=== PATIENT | female | born 1950 | race Caucasian/White ===

== ENCOUNTER 2020-08-18 09:48 | Outpatient (REF) | payer MEDICARE, BC, SELFPAY ==
--- NOTE | 2020-08-18 | MM_ITS ---
EXAMINATION: MM SCREENING DIGITAL BREAST TOMOSYNTHESIS, BILATERAL CLINICAL INFORMATION: Screening. Asymptomatic. The lifetime risk of breast cancer based on the Tyrer-Cuzick Model is 3%. COMPARISON: Mammography: 08/13/2019, 08/10/2018, 05/17/2015 TECHNIQUE: Digital breast tomosynthesis is performed in both the craniocaudal and mediolateral oblique views along with computer-aided detection (CAD). Synthesized 2D images are generated from the tomosynthesis. Additional exaggerated right CC view is provided. FINDINGS: There are scattered areas of fibroglandular density (ACR BI-RADS breast composition Category b). There are no significant masses, abnormal calcifications, or other abnormalities. There are some vascular calcifications in the outer right breast best appreciated on MLO view. The axilla and skin contours are unremarkable. IMPRESSION: No significant changes from prior exams. ASSESSMENT: BI-RADS 2: Benign RECOMMENDATION: Routine annual mammography screening. This patient's information was entered into a reminder system with a target due date for their next mammogram.
== END 2020-08-18 09:49 | disposition home or self-care (01) ==
LOC: HO.MAMMO 09:48
PROVIDERS: PCP Internal Medicine; Visit Provider Internal Medicine
DX: Z12.31 Encounter for screening mammogram for malignant neoplasm of breast (principal)
CPT/HCPCS: 77063; 77067; 78014

== ENCOUNTER 2021-05-28 10:27 | Outpatient (REF) | payer MEDICARE, BC, SELFPAY ==
[2021-05-28 12:18] LABS: Alanine Aminotransferase 9 U/L (0-31); Albumin Level 4.2 g/dL (3.5-5.0); Alkaline Phosphatase 32 U/L (39-117); Anion Gap 13 (12-20); Aspartate Amino Transferase 15 U/L (5-31); Blood Urea Nitrogen 15 mg/dL (9-16); Calcium 9.4 mg/dL (8.4-10.2); Carbon Dioxide 27 mmol/L (22-29); Chloride 105 mmol/L (96-108); Estimated Glomerular Filt Rate > 60; Glucose Random 65 mg/dL (60-115); Potassium 4.2 mmol/L (3.3-5.1); Sodium 141 mmol/L (135-145)
[2021-06-03 09:06] LABS: Vitamin D 25-OH, D2 <4 ng/mL; Vitamin D 25-OH, D3 55 ng/mL; Vitamin D 25-OH, Total 55 ng/mL (30-100)
== END 2021-05-28 10:28 | disposition home or self-care (01) ==
LOC: HO.LAB 10:27
PROVIDERS: PCP Internal Medicine; Visit Provider Student in an Organized Health Care Education/Training Program
DX: M81.0 Age-related osteoporosis without current pathological fracture (principal)
CPT/HCPCS: 36415; 80053; 82306

== ENCOUNTER → 2021-06-12 11:09 | Outpatient (BNVA) | payer MEDICARE, BC, SELFPAY | PROVIDERS: PCP Internal Medicine; Referring Provider Internal Medicine; Visit Provider Student in an Organized Health Care Education/Training Program | DX: M81.0 Age-related osteoporosis without current pathological fracture (principal); Z87.39 Personal history of other diseases of the musculoskeletal system and connective tissue | CPT/HCPCS: 99212 ==

== ENCOUNTER 2021-07-19 10:15 | Outpatient (REF) | payer MEDICARE, BC, SELFPAY ==
--- NOTE | ~2021-07-19 | MM_ITS ---
EXAMINATION: BONE DENSITOMETRY CLINICAL INDICATION: Osteoporosis. COMPARISON: Previous BD dated 06/18/2019 and baseline BD dated 04/09/2011. TECHNIQUE: Using a [employer] DXA System (software version: 13.1) manufactured by [employer], dual-energy x-ray absorptiometry was performed of the lumbar spine and left hip. The images are of good technical quality. Summary results are attached. FINDINGS: AP SPINE L1-L2 (excluding L3 and L4): The data of L1-L4 has been changed to exclude the L3 and L4 vertebral bodies, because degenerative changes at these levels may cause overestimation of lumbar spine density. Current: BMD 0.961 g/cm2, Z-score -0.2, T-score -1.7, osteopenia, 6.5% increase from previous, 7.1% decrease from baseline (<5% change is not significant). Prior: BMD 0.902 g/cm2. Baseline: BMD 1.035 g/cm2. LEFT FEMUR, NECK: Current: BMD 0.869 g/cm2, Z-score 0.5, T-score -1.2, osteopenia. Prior: BMD 0.798 g/cm2. Baseline: BMD 0.929 g/cm2. LEFT FEMUR, TOTAL: Current: BMD 0.863 g/cm2, Z-score 0.3, T-score -1.1, osteopenia, 6.4% increase from previous, 8.4% decrease from baseline (<5% change is not significant). Prior: BMD 0.811 g/cm2. Baseline: BMD 0.942 g/cm2. IDENTIFIED RISK FACTORS: Menopause, glucocorticoids (chronic). HISTORY OF FRACTURE: None listed. MEDICATIONS: Calcium supplements or multivitamin, vitamin D, bisphosphonates. MM/XR DEXA axial skeleton IMPRESSION: 1. DIAGNOSIS: Osteopenia based on the lowest T-score value of -1.7 in the lumbar spine applying World Health Organization criteria. 2. 10-YEAR FRACTURE RISK PREDICTION, FRAX: Major osteoporotic fracture (clinical spine, forearm, hip or shoulder) 15.6%. Hip fracture 2.5%. 3. Treatment Recommendations: NOF guidelines recommend consideration for treatment in postmenopausal women and men age 50 and older presenting with the following: -A hip or vertebral (clinical or morphometric) fracture. -T-score less than or equal to -2.5 at the femoral neck or spine after appropriate evaluation to exclude secondary causes. -Low bone mass at the hip or spine and a 10-year fracture probability by FRAX of greater than or equal to 3% for hip fracture or greater than or equal to 20% for major osteoporotic fracture based on the [place] adapted WHO algorithm. 4. Other Recommendations: All treatment decisions require clinical judgment and consideration of individual patient factors, including patient preferences, comorbidities, previous drug use, risk factors not captured in the FRAX model (e.g. frailty, falls, vitamin D deficiency, increased bone turnover, interval significant decline in bone density) and possible under or overestimation of fracture risk by FRAX. Additional medical evaluation for secondary cause of low bone mineral density may be appropriate. FUTURE SCAN RECOMMENDATION: People with diagnosed cases of osteoporosis or at high risk for fracture should have regular bone mineral density tests. For patients eligible for Medicare, routine testing is allowed once every 2 years. The testing frequency can be increased to one year for patients who have rapidly progressing disease, those who are receiving or discontinuing medical therapy to restore bone mass, or have additional risk factors.
== END 2021-07-19 10:16 | disposition home or self-care (01) ==
LOC: HO.MAMMO 10:15
PROVIDERS: Visit Provider Student in an Organized Health Care Education/Training Program
DX: Z13.820 Encounter for screening for osteoporosis (principal); M85.80 Other specified disorders of bone density and structure, unspecified site; E27.49 Other adrenocortical insufficiency; Z78.0 Asymptomatic menopausal state; Z79.899 Other long term (current) drug therapy
CPT/HCPCS: 77080

== ENCOUNTER 2021-08-02 10:28 | Outpatient (REF) | payer MEDICARE, BC, SELFPAY ==
[2021-08-02 10:31] LABS: MANUAL DIFF FLAG NO
[2021-08-02 10:47] LABS: Basophils Percent Auto 0.7 % (0-2); Eosinophils Absolute Auto 0.1 X10*3/uL (0.0-0.4); Eosinophils Percent Auto 1.2 % (0-4); Hematocrit 38.2 % (37-47); Hemoglobin 12.7 g/dl (12.0-16.0); Imm Gran Abs Auto 0.01 X10*3/uL (0.00-0.03); Imm Gran Pct Auto 0.2 % (0.0-0.4); Lymphocytes Absolute Auto 2.2 X10*3/uL (1.2-4.9); Lymphocytes Percent Auto 37.9 % (20-40); Mean Corpuscular HGB Conc 33.2 g/dl (31.0-35.0); Mean Corpuscular Hemoglobin 31.1 pg (27.0-33.0); Mean Corpuscular Volume 93.6 fL (80-98); Mean Platelet Volume 9.5 fL (9.4-12.3); Monocytes Absolute Auto 0.4 X10*3/uL (0.1-1.2); Monocytes Percent Auto 6.7 % (2-11); Neutrophils Absolute Auto 3.1 X10*3/uL (2.0-8.3); Neutrophils Percent Auto 53.3 % (45-73); Platelet Count 180 X10*3/uL (160-400); Red Blood Count 4.08 X10*6/uL (4.20-5.50); Red Cell Distribution Width 13.2 % (11.0-16.0); White Blood Count 5.8 X10*3/uL (4.8-10.8)
[2021-08-02 11:05] LABS: Appearance Urine CLEAR; Color Urine YELLOW; Glucose Urine UA NEG (NEG); Leukocyte Esterase Urine NEG (NEG); Nitrite Urine NEG (NEG); Specific Gravity - Urine 1.015 (1.005-1.025); Urine Blood NEG (NEG); Urine Ketones NEG (NEG); Urine Protein NEG (NEG-TRACE)
[2021-08-02 11:28] LABS: Alanine Aminotransferase 10 U/L (0-31); Albumin Level 4.3 g/dL (3.5-5.0); Alkaline Phosphatase 29 U/L (39-117); Anion Gap 14 (12-20); Aspartate Amino Transferase 14 U/L (5-31); Blood Urea Nitrogen 15 mg/dL (9-16); Calcium 9.5 mg/dL (8.4-10.2); Carbon Dioxide 27 mmol/L (22-29); Chloride 105 mmol/L (96-108); Cholesterol 196 mg/dL; Estimated Glomerular Filt Rate > 60; Glucose Fasting 79 mg/dL (60-99); HDL Cholesterol 57 mg/dL; LDL Cholesterol Calculated 128 mg/dl; Potassium 4.1 mmol/L (3.3-5.1); Sodium 142 mmol/L (135-145); Total Protein 6.9 g/dL (6.5-8.0); Triglycerides 58 mg/dL
== END 2021-08-02 10:29 | disposition home or self-care (01) ==
LOC: HO.LNP 10:28
PROVIDERS: Visit Provider Internal Medicine
DX: D72.820 Lymphocytosis (symptomatic) (principal); M35.3 Polymyalgia rheumatica; R79.9 Abnormal finding of blood chemistry, unspecified
CPT/HCPCS: 80053; 80061; 81003; 85025

== ENCOUNTER 2021-09-14 13:31 | Outpatient (REF) | payer MEDICARE, BC, SELFPAY ==
--- NOTE | ~2021-09-14 | MM_ITS ---
EXAMINATION: MM SCREENING DIGITAL BREAST TOMOSYNTHESIS, BILATERAL CLINICAL INFORMATION: Screening. Asymptomatic. The lifetime risk of breast cancer based on the Tyrer-Cuzick Model is 3%. COMPARISON: Mammography: 08/18/2020, 08/13/2019, 08/10/2018 TECHNIQUE: Digital breast tomosynthesis is performed in both the craniocaudal and mediolateral oblique views along with computer-aided detection (CAD). Synthesized 2D images are generated from the tomosynthesis. Additional exaggerated right CC and left cleavage views are provided. FINDINGS: There are scattered areas of fibroglandular density (ACR BI-RADS breast composition Category b). There are no significant masses, abnormal calcifications, or other abnormalities. Parenchymal asymmetry posterior upper outer right breast is similar to prior studies. No developing density. The axilla and skin contours are unremarkable. No significant changes. MM/MM tomosynthesis screening BI IMPRESSION: No significant changes from prior exams. ASSESSMENT: BI-RADS 2: Benign RECOMMENDATION: Routine annual mammography screening. This patient's information was entered into a reminder system with a target due date for their next mammogram.
== END 2021-09-14 13:32 | disposition home or self-care (01) ==
LOC: HO.MAMMO 13:31
PROVIDERS: Visit Provider Internal Medicine
DX: Z12.31 Encounter for screening mammogram for malignant neoplasm of breast (principal)
CPT/HCPCS: 77063; 77067

== ENCOUNTER 2021-10-05 10:38 | Outpatient (REF) | payer MEDICARE, BC, SELFPAY | END 2021-10-05 10:39 | disposition home or self-care (01) | LOC: HO.HMGCLDS 10:38 | PROVIDERS: Visit Provider Internal Medicine | DX: Z20.822 Contact with and (suspected) exposure to COVID-19 (principal) | CPT/HCPCS: C9803; U0003; U0005 ==

== ENCOUNTER 2021-12-08 11:16 | Emergency (ER) | payer OTHER, BC, MEDICARE, SELFPAY ==
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
[2021-12-08 12:10] VITALS: BP 146/80; PULSE 65; RESP 18; TEMP 36.6; O2SAT 99; BMI 23.8
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
== END 2021-12-08 13:57 | disposition home or self-care (01) ==
PROVIDERS: Emergency Provider Internal Medicine; PCP Internal Medicine
DX: S20.211A Contusion of right front wall of thorax, initial encounter (principal); S40.011A Contusion of right shoulder, initial encounter; V43.62XA Car passenger injured in collision with other type car in traffic accident, initial encounter; Y93.89 Activity, other specified; Y92.414 Local residential or business street as the place of occurrence of the external cause; Y99.9 Unspecified external cause status
CPT/HCPCS: 71101; 73030; 99283

== ENCOUNTER 2021-12-20 06:19 | Outpatient (REF) | payer OTHER, MEDICARE, BC, SELFPAY ==
--- NOTE | ~2021-12-20 | XR_ITS ---
EXAMINATION: XR knee RT 2V, XR knee standing BI CLINICAL INFORMATION: Reason for Exam M25.569 - Pain in unspecified knee COMPARISON: None available at the time of this dictation. TECHNIQUE: Bilateral frontal standing, right lateral and patella sunrise view. FINDINGS: BONES: No fracture or dislocation is present. JOINTS: Mild narrowing of joint spaces medially suggests mild DJD. No erosions. Articular surfaces remain smooth. No joint effusion. SOFT TISSUE: Normal XR/XR knee RT 2V IMPRESSION: Mild DJD medial compartments.
--- NOTE | ~2021-12-20 | XR_ITS ---
EXAMINATION: XR knee RT 2V, XR knee standing BI CLINICAL INFORMATION: Reason for Exam M25.569 - Pain in unspecified knee COMPARISON: None available at the time of this dictation. TECHNIQUE: Bilateral frontal standing, right lateral and patella sunrise view. FINDINGS: BONES: No fracture or dislocation is present. JOINTS: Mild narrowing of joint spaces medially suggests mild DJD. No erosions. Articular surfaces remain smooth. No joint effusion. SOFT TISSUE: Normal XR/XR knee standing BI IMPRESSION: Mild DJD medial compartments.
== END 2021-12-20 06:20 | disposition home or self-care (01) ==
LOC: HO.HOSX 06:19
PROVIDERS: Visit Provider Physician Assistant
DX: S80.01XA Contusion of right knee, initial encounter (principal)
CPT/HCPCS: 73560; 73565

== ENCOUNTER 2022-01-31 14:00 | Outpatient (RCR) | payer OTHER, MEDICARE, BC, SELFPAY ==
--- NOTE | 2021-12-19 14:41 | MHC.PT.EP ---
[facility] [place] [facility] [place] Office [place] Office [address] [phone] F: [phone] F: [phone] F: [phone] F: [phone] Physical Therapy Plan of Care Date of Evaluation: Date of Surgery: n/a Diagnosis: neck pain Assessment: Patient is a 71 year old L handed female who presents with s/s consistent with neck pain. 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 Patient past medical history is fairly unremarkable. Current impairments include pain, posture, ROM, strength, activity tolerance and functional mobility. Functional limitations include decreased ability to sleep, turn head, read, sew, and drive. Patient is motivated with good rehab potential. Skilled PT will address impairments and functional limitations in order to achieve goals. Frequency and Duration: The patient will be seen 2x/week for 5 weeks Short Term Goals: I with HEP - 2 weeks AROM flexion and abd to 130 - 3 weeks ER to 55 - 3 weeks Dining Host Goals: Strength 4-/5 ER and abd - 5 weeks c-spine rotation to 60 - 5 weeks pain with all activities - 2/10 or better - 5 weeks NPDI 14% or better - 5 weeks Treatment Plan: Modalities to reduce pain, spasms and effusion. Manual therapy to restore motion and function. Therapeutic exercise to improve strength and flexibility. Neuromuscular re-education for posture and balance. Therapeutic activities to return to functional activities of daily living. Electronically signed by: Sreekanth Kinsey, PT Please sign and return to therapist. Thank you for your referral.
--- NOTE | 2022-02-05 12:48 | MHC.PT.DC ---
[facility] [place] Office [place] Office [place] Office [address] [phone] F: [phone] F: [phone] F: [phone] F: [phone] Physical Therapy Discharge Report Diagnosis: neck pain Date of Surgery: n/a Date of Evaluation: 12/19/21 Date of Discharge: 01/31/22 Treatments to Date: 13 Cancellations to Date: No Shows to Date: Discharge Status: Achieved Goals Improved Function Independent with HEP Discharge Summary: 01/31/22: no new s/s. I with HEP. AROM flexion and abd 140. ER to 60 b/l. Strength ER and abd 4-/5, C-spine rotation to 59 L, and 56 R. pain with daily activities 1/10 at worst. Appropriate to d/c to HEP at this time. 01/29/22: asymptomatic today. Rotation improving. d/c to HEP NV. issued HEP and bands today. 01/24/22: due to increased frequency of BA in recent days and increased tissue tension, we will continue 1 more week. 01/21/22: reduced tissue tension overall. good AROM rotation. 62 to L, 59 to R. ER to 4-/5 b/l. 1 more visit, update HEP. 01/17/22: Riri navarro improved lateral flexion compared to last session. She continues to have a consistent BA but states that this is her norm. She requested ed on self trigger at home so I explained a few different techniques. I also discussed maybe a tens unit would be helpful at home if she wanted to try this. She has 2 more appointments scheduled and knows about this. May want to start tx for her knee next. 01/14/22: Riri reports shoulder is progressing but states that her neck continues to be tight. Limited range with UT stretching laterally. Reports R upper trap is more tender than the L. Continued POC. She has 3 more booked appointments, educated her on this and talking with primary PT on whether to continue for the neck or switch to the knee, she was in agreement. 01/10/22: pt progressing well. less pain overall with daily activities. sleeping better. reduced TTP. 01/03/22: pt able to rotated with less pain with performed concurrently with STM in seated position. 12/31/21: Riri reports that she feels like she is getting better with therapy especially with her R shoulder mobility. She has no pain with cane flexion or rows anymore however cervical rotation B is still painful. Pain is B UT's but moreso on the R today. She enjoys MH. Lula like she improved ROM s/p session, trialed bio freeze at the end of the session. 12/27/21: pt responding well so far to manual intervention and ex program. continue to progress as tolerated with stretching/posture. 12/24/21: added chin tucks and sb to HEP. assess response NV. pt with TTP R C4-C5. R SB at rest with increased tissue tension. Patient is a 71 year old L handed female who presents with s/s consistent with neck pain. 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 Patient past medical history is fairly unremarkable. Current impairments include pain, posture, ROM, strength, activity tolerance and functional mobility. Functional limitations include decreased ability to sleep, turn head, read, sew, and drive. Patient is motivated with good rehab potential. Skilled PT will address impairments and functional limitations in order to achieve goals. Electronically signed by: Sreekanth Kinsey, PT Please sign and return to therapist. Thank you for your referral.
== END 2022-02-05 12:48 | disposition home or self-care (01) ==
LOC: HO.PTCHIC 14:00
PROVIDERS: PCP Internal Medicine; Visit Provider Internal Medicine
DX: M54.2 Cervicalgia (principal)
CPT/HCPCS: 97110; 97140; 97161

== ENCOUNTER → 2022-02-20 13:16 | Outpatient (BNVA) | payer OTHER, MEDICARE, BC, SELFPAY | PROVIDERS: PCP Internal Medicine; Visit Provider Physician Assistant | DX: S80.01XD Contusion of right knee, subsequent encounter (principal); S83.8X1D Sprain of other specified parts of right knee, subsequent encounter; M17.11 Unilateral primary osteoarthritis, right knee; V49.9XXD Car occupant (driver) (passenger) injured in unspecified traffic accident, subsequent encounter | CPT/HCPCS: 99212 ==

== ENCOUNTER 2022-03-07 10:22 | Outpatient (REF) | payer OTHER, MEDICARE, BC, SELFPAY ==
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
== END 2022-03-07 10:23 | disposition home or self-care (01) ==
LOC: HO.MRI 10:22
PROVIDERS: Visit Provider Physician Assistant
DX: M17.11 Unilateral primary osteoarthritis, right knee (principal)
CPT/HCPCS: 73721

== ENCOUNTER 2022-03-12 14:00 | Outpatient (RCR) | payer OTHER, MEDICARE, BC, SELFPAY ==
--- NOTE | 2022-02-05 11:09 | MHC.PT.EP ---
[facility] [place] Office [place] Office [place] Office [address] [phone] F: [phone] F: [phone] F: [phone] F: [phone] Physical Therapy Plan of Care Date of Evaluation: Date of Surgery: n/a Diagnosis: Contusion of R knee. Assessment: Patient is a 71 year old R handed female who presents with s/s consistent with R knee pain/contusion. She does not work but does enjoy staying active with house/family and walking. Patient past medical history is likely non-contributory. Current impairments include pain, ROM, strength, activity tolerance and functional mobility. Functional limitations include decreased ability to walk, sit <> stand, bike, kneel, and squat. Patient is motivated with good rehab potential. Skilled PT will address impairments and functional limitations in order to achieve goals. Frequency and Duration: The patient will be seen 2x/week for 5 weeks Short Term Goals: I with HEP - 2 weeks able to bike 10 minutes pain free - 3 weeks Strength 4+/5 grossly Mcfp Goals: pain free kneeling - 5 weeks Able to walk > 30 minutes without pain - 5 weeks biking > 15 minutes - 0/10 pain - 5 weeks Pain free ADLs - 5 weeks Treatment Plan: Modalities to reduce pain, spasms and effusion. Manual therapy to restore motion and function. Therapeutic exercise to improve strength and flexibility. Neuromuscular re-education for posture and balance. Therapeutic activities to return to functional activities of daily living. Electronically signed by: Sreekanth Kinsey, PT Please sign and return to therapist. Thank you for your referral.
--- NOTE | 2022-08-08 09:34 | MHC.PT.DC ---
[facility] [place] Office [place] Office [place] Office [address] Dolores Guzman [address] [phone] F: [phone] F: [phone] F: [phone] F: [phone] Physical Therapy Discharge Report Diagnosis: Contusion of R knee. Date of Surgery: n/a Date of Evaluation: 02/05/22 Date of Discharge: 03/21/22 Treatments to Date: 9 Cancellations to Date: No Shows to Date: Discharge Status: Improved Function Independent with HEP Discharge Summary: 03/12/22: Pt is I with HEP. ABle to bike 10 min pain free. Strength is 4/5 grossly. She is able to kneel pain free and walking > 30 minutes. She is pain free with ADLs. She is appropriate to d/c to HEP at this time. 03/07/22: pt progressing very well with skilled PT. Her residual symptom is pain with kneeling with one spot after 30 seconds. 02/26/22: pt progressing well. able to kneel short duration over the weekend. improved functional strength. tends to toe out with squatting on R side. 02/22/22: pt progressing well; to received MRI (pending approval) on knee. follow up was yesterday and question of meniscal pathology looms. 02/19/22: increased burning noted by patient, addressed with gentle ex and edu on use of ice at home. we did use tape today as well which has had good results in the past. 02/14/22: pt improving with function and pain. given stat patch for TTP on lateral patella. 02/12/22: improved flexion. less ttp. will tape again next visit. less pain with kneeling but still not tolerable. notes 5/10 pain with kneeling now as compared to 10/10 on eval. 02/07/22: pt progressed with flex and strength. taped lateral patella for offloading. assess response NV. Patient is a 71 year old R handed female who presents with s/s consistent with R knee pain/contusion. She does not work but does enjoy staying active with house/family and walking. Patient past medical history is likely non-contributory. Current impairments include pain, ROM, strength, activity tolerance and functional mobility. Functional limitations include decreased ability to walk, sit <> stand, bike, kneel, and squat. Patient is motivated with good rehab potential. Skilled PT will address impairments and functional limitations in order to achieve goals. Electronically signed by: Sreekanth Kinsey, PT Please sign and return to therapist. Thank you for your referral.
== END 2022-08-08 09:34 | disposition home or self-care (01) ==
LOC: HO.PTCHIC 14:00
PROVIDERS: PCP Internal Medicine; Visit Provider Physician Assistant
DX: S80.01XD Contusion of right knee, subsequent encounter (principal)
CPT/HCPCS: 97110; 97140; 97161; 97530

== ENCOUNTER → 2022-03-20 13:04 | Outpatient (BNVA) | payer OTHER, MEDICARE, BC, SELFPAY | PROVIDERS: PCP Internal Medicine; Visit Provider Physician Assistant | DX: Z13.89 Encounter for screening for other disorder (principal) ==

== ENCOUNTER 2022-04-22 13:22 | Outpatient (REF) | payer MEDICARE, BC, SELFPAY ==
[2022-04-22 14:55] LABS: Alanine Aminotransferase 14 U/L (0-31); Albumin Level 4.2 g/dL (3.5-5.0); Alkaline Phosphatase 34 U/L (39-117); Anion Gap 14 (12-20); Aspartate Amino Transferase 18 U/L (5-31); Blood Urea Nitrogen 17 mg/dL (9-16); Calcium 9.2 mg/dL (8.4-10.2); Carbon Dioxide 26 mmol/L (22-29); Chloride 106 mmol/L (96-108); Estimated Glomerular Filt Rate > 60; Glucose Random 100 mg/dL (60-115); Potassium 4.4 mmol/L (3.3-5.1); Sodium 142 mmol/L (135-145)
[2022-04-22 15:17] LABS: Vitamin D 25-OH Total 68.5 ng/mL (>30)
== END 2022-04-22 13:23 | disposition home or self-care (01) ==
LOC: HO.LAB 13:22
PROVIDERS: PCP Internal Medicine; Visit Provider Nurse Practitioner Family
DX: M81.0 Age-related osteoporosis without current pathological fracture (principal)
CPT/HCPCS: 36415; 80053; 82306

== ENCOUNTER → 2022-05-09 13:54 | Outpatient (BNVA) | payer MEDICARE, BC, SELFPAY | PROVIDERS: PCP Internal Medicine; Visit Provider Nurse Practitioner Family | DX: M81.0 Age-related osteoporosis without current pathological fracture (principal); Z87.39 Personal history of other diseases of the musculoskeletal system and connective tissue | CPT/HCPCS: 99212 ==

== ENCOUNTER 2022-07-26 10:51 | Outpatient (REF) | payer MEDICARE, BC, SELFPAY ==
[2022-07-26 10:54] LABS: MANUAL DIFF FLAG NO
[2022-07-26 10:58] LABS: Basophils Absolute Auto 0.1 X10*3/uL (0.0-0.2); Basophils Percent Auto 1.1 % (0-2); Eosinophils Absolute Auto 0.1 X10*3/uL (0.0-0.4); Eosinophils Percent Auto 1.5 % (0-4); Hematocrit 38.8 % (37.0-47.0); Hemoglobin 13.3 g/dl (12.0-16.0); Imm Gran Abs Auto 0.01 X10*3/uL (0.00-0.03); Imm Gran Pct Auto 0.2 % (0.0-0.4); Mean Corpuscular HGB Conc 34.3 g/dl (31.0-35.0); Mean Corpuscular Hemoglobin 30.9 pg (27.0-33.0); Mean Corpuscular Volume 90.2 fL (80.0-98.0); Mean Platelet Volume 9.3 fL (9.4-12.3); Monocytes Absolute Auto 0.3 X10*3/uL (0.1-1.2); Monocytes Percent Auto 6.4 % (2-11); Neutrophils Absolute Auto 1.9 x10*3/uL (2.0-8.3); Neutrophils Percent Auto 34.8 % (45-73); Platelet Count 202 X10*3/uL (160-400); Red Cell Distribution Width 12.6 % (11.0-16.0); White Blood Count 5.3 X10*3/uL (4.8-10.8)
[2022-07-26 11:20] LABS: Alanine Aminotransferase 14 U/L (0-31); Albumin Level 4.3 g/dL (3.5-5.0); Alkaline Phosphatase 30 U/L (39-117); Anion Gap 17 (12-20); Aspartate Amino Transferase 19 U/L (5-31); Bilirubin Total 0.9 mg/dL (0.0-1.0); Blood Urea Nitrogen 22 mg/dL (9-16); Calcium 9.3 mg/dL (8.4-10.2); Carbon Dioxide 26 mmol/L (22-29); Chloride 102 mmol/L (96-108); Cholesterol 190 mg/dL; Estimated Glomerular Filt Rate 58; Glucose Fasting 85 mg/dL (60-99); HDL Cholesterol 59 mg/dL; LDL Cholesterol Calculated 121 mg/dl; Sodium 141 mmol/L (135-145); Total Protein 6.8 g/dL (6.5-8.0); Triglycerides 51 mg/dL
[2022-07-26 11:26] LABS: Appearance Urine Clear; Color Urine Yellow; Glucose Urine UA Negative (Negative); Leukocyte Esterase Urine Trace (Negative); Nitrite Urine Negative (Negative); PH 5.5 (5.0-9.0); Specific Gravity - Urine <= 1.005 (1.005-1.025); Urine Blood Negative (Negative); Urine Ketones Negative (Negative); Urine Protein Negative (Neg-Trace)
[2022-07-26 11:29] LABS: Bacteria Urine None Seen (None Seen); Hyaline Casts Urine 0-2 /LPF (0-2); RBC Urine 0-2 /HPF (0-2); Squamous Epithelial Cell Urine 0-2 /HPF (0-2); WBC Urine 0-5 /HPF (0-5)
== END 2022-07-26 10:52 | disposition home or self-care (01) ==
LOC: HO.LNP 10:51
PROVIDERS: Visit Provider Internal Medicine
DX: D72.820 Lymphocytosis (symptomatic) (principal); M35.3 Polymyalgia rheumatica
CPT/HCPCS: 80053; 80061; 81001; 85025

== ENCOUNTER 2022-11-27 14:15 | Outpatient (REF) | payer MEDICARE, BC, SELFPAY ==
--- NOTE | ~2022-11-27 | MM_ITS ---
EXAMINATION: MM SCREENING DIGITAL BREAST TOMOSYNTHESIS, BILATERAL CLINICAL INFORMATION: Screening. Asymptomatic. The lifetime risk of breast cancer based on the Tyrer-Cuzick Model is 2.5%. COMPARISON: Mammography: September 14, 2021 and studies dating back to May 17, 2015 TECHNIQUE: Digital breast tomosynthesis is performed in both the craniocaudal and mediolateral oblique views along with computer-aided detection (CAD). Synthesized 2D images are generated from the tomosynthesis. Additional right exaggerated craniocaudal view performed. FINDINGS: There are scattered areas of fibroglandular density (ACR BI-RADS breast composition Category b). There are no new significant masses, abnormal calcifications, or other abnormalities. Stable asymmetric density seen about the lateral aspect of the right breast. MM/MM tomosynthesis screening BI IMPRESSION: No significant changes from prior exam. ASSESSMENT: BI-RADS 2: Benign RECOMMENDATION: Routine annual mammography screening. This patient's information was entered into a reminder system with a target due date for their next mammogram.
== END 2022-11-27 14:16 | disposition home or self-care (01) ==
LOC: HO.MAMMO 14:15
PROVIDERS: PCP Internal Medicine; Visit Provider Internal Medicine
DX: Z12.31 Encounter for screening mammogram for malignant neoplasm of breast (principal)
CPT/HCPCS: 77063; 77067

== ENCOUNTER 2023-01-13 08:54 | Outpatient (REF) | payer MEDICARE, BC, SELFPAY ==
[2023-01-13 10:08] LABS: Alanine Aminotransferase 11 U/L (0-31); Albumin Level 3.9 g/dL (3.5-5.0); Alkaline Phosphatase 26 U/L (39-117); Anion Gap 12 (12-20); Aspartate Amino Transferase 17 U/L (5-31); Bilirubin Total 0.9 mg/dL (0.0-1.0); Blood Urea Nitrogen 18 mg/dL (9-16); Calcium 9.1 mg/dL (8.4-10.2); Carbon Dioxide 29 mmol/L (22-29); Chloride 102 mmol/L (96-108); Estimated Glomerular Filt Rate > 60; Glucose Random 88 mg/dL (60-115); Potassium 3.9 mmol/L (3.3-5.1); Sodium 139 mmol/L (135-145); Total Protein 6.1 g/dL (6.5-8.0)
[2023-01-13 10:15] LABS: Vitamin D 25-OH Total 57.3 ng/mL (>30)
== END 2023-01-13 08:55 | disposition home or self-care (01) ==
LOC: HO.LAB 08:54
PROVIDERS: PCP Internal Medicine; Visit Provider Nurse Practitioner Family
DX: M81.0 Age-related osteoporosis without current pathological fracture (principal)
CPT/HCPCS: 36415; 80053; 82306

== ENCOUNTER → 2023-02-18 09:07 | Outpatient (BNVA) | payer MEDICARE, BC, SELFPAY | PROVIDERS: PCP Internal Medicine; Visit Provider Nurse Practitioner Family | DX: M85.80 Other specified disorders of bone density and structure, unspecified site (principal); M19.041 Primary osteoarthritis, right hand; M19.042 Primary osteoarthritis, left hand; Z87.39 Personal history of other diseases of the musculoskeletal system and connective tissue | CPT/HCPCS: 99212 ==

== ENCOUNTER 2023-08-05 10:48 | Outpatient (REF) | payer MEDICARE, BC, SELFPAY ==
[2023-08-05 10:56] LABS: MANUAL DIFF FLAG NO
[2023-08-05 11:05] LABS: Appearance Urine Clear; Color Urine Yellow; Glucose Urine UA Negative (Negative); Leukocyte Esterase Urine Negative (Negative); Nitrite Urine Negative (Negative); Urine Blood Negative (Negative); Urine Ketones Negative (Negative); Urine Protein Negative (Neg-Trace)
[2023-08-05 11:11] LABS: Bacteria Urine None Seen (None Seen); Hyaline Casts Urine 0-2 /LPF (0-2); RBC Urine 0-2 /HPF (0-2); Squamous Epithelial Cell Urine 0-2 /HPF (0-2); WBC Urine 0-5 /HPF (0-5)
[2023-08-05 11:16] LABS: Basophils Absolute Auto 0.1 X10*3/uL (0.0-0.2); Basophils Percent Auto 1.1 % (0-2); Eosinophils Absolute Auto 0.1 X10*3/uL (0.0-0.4); Eosinophils Percent Auto 1.9 % (0-4); Hematocrit 37.7 % (37.0-47.0); Hemoglobin 12.8 g/dl (12.0-16.0); Imm Gran Abs Auto 0.01 X10*3/uL (0.00-0.03); Imm Gran Pct Auto 0.2 % (0.0-0.4); Lymphocytes Absolute Auto 2.5 X10*3/uL (1.2-4.9); Lymphocytes Percent Auto 52.8 % (20-40); Mean Corpuscular Hemoglobin 31.2 pg (27.0-33.0); Mean Platelet Volume 9.6 fL (9.4-12.3); Monocytes Absolute Auto 0.3 X10*3/uL (0.1-1.2); Monocytes Percent Auto 7.1 % (2-11); Neutrophils Absolute Auto 1.7 x10*3/uL (2.0-8.3); Neutrophils Percent Auto 36.9 % (45-73); Platelet Count 185 X10*3/uL (160-400); Red Cell Distribution Width 12.8 % (11.0-16.0); White Blood Count 4.7 X10*3/uL (4.8-10.8)
[2023-08-05 11:28] LABS: Alanine Aminotransferase 10 U/L (0-31); Alkaline Phosphatase 27 U/L (39-117); Anion Gap 11 (12-20); Aspartate Amino Transferase 19 U/L (5-31); Bilirubin Total 0.8 mg/dL (0.0-1.0); Blood Urea Nitrogen 14 mg/dL (9-16); Calcium 9.7 mg/dL (8.4-10.2); Carbon Dioxide 28 mmol/L (22-29); Chloride 106 mmol/L (96-108); Cholesterol 191 mg/dL (<200); Estimated Glomerular Filt Rate 58; Glucose Fasting 78 mg/dL (60-99); HDL Cholesterol 58 mg/dL (>40); LDL Cholesterol Calculated 120 mg/dL (<100); Potassium 4.1 mmol/L (3.3-5.1); Sodium 141 mmol/L (135-145); Total Protein 6.7 g/dL (6.5-8.0); Triglycerides 65 mg/dL (<150)
== END 2023-08-05 10:49 | disposition home or self-care (01) ==
LOC: HO.LNP 10:48
PROVIDERS: Visit Provider Internal Medicine
DX: D72.820 Lymphocytosis (symptomatic) (principal)
CPT/HCPCS: 80053; 80061; 81001; 85025

== ENCOUNTER 2023-08-11 10:42 | Outpatient (REF) | payer MEDICARE, BC, SELFPAY ==
[2023-08-11 13:03] LABS: Erythrocyte Sedimentation Rate 11 MM/HR (0-20)
[2023-08-11 13:25] LABS: C Reactive Protein 0.28 mg/dL (< or = 0.50)
== END 2023-08-11 10:43 | disposition home or self-care (01) ==
LOC: HO.LAB 10:42
PROVIDERS: PCP Internal Medicine; Visit Provider Internal Medicine Rheumatology
DX: Z87.39 Personal history of other diseases of the musculoskeletal system and connective tissue (principal)
CPT/HCPCS: 36415; 85652; 86140

== ENCOUNTER 2023-08-29 13:28 | Outpatient (REF) | payer MEDICARE, BC, SELFPAY ==
--- NOTE | ~2023-08-29 | MM_ITS ---
EXAMINATION: BONE DENSITOMETRY CLINICAL INDICATION: Personal history of other diseases of the musculoskeletal system. COMPARISON: Previous BD dated 07/19/2021 and baseline BD dated 04/09/2011. TECHNIQUE: Using a [employer] DXA System (software version: 13.1) manufactured by [employer] dual-energy x-ray absorptiometry was performed of the lumbar spine and left hip. The images are of good technical quality. Summary results are attached. FINDINGS: LEFT FEMUR, NECK: Current: BMD 0.769 g/cm2, Z-score -0.2, T-score -1.9, osteopenia. Prior: BMD 0.869 g/cm2. Baseline: BMD 0.929 g/cm2. LEFT FEMUR, TOTAL: Current: BMD 0.810 g/cm2, Z-score -0.1, T-score -1.6, osteopenia, 6.1% decrease from previous, 14.0% decrease from baseline (<5% change is not significant). Prior: BMD 0.863 g/cm2. Baseline: BMD 0.942 g/cm2. AP SPINE L1-L2 (excluding L3 and L4): The data of L1-L4 has been changed to exclude the L3 and L4 vertebral bodies, because increased degenerative sclerosis at these levels may cause overestimation of lumbar spine density. Current: BMD 0.968 g/cm2, Z-score -0.2, T-score -1.6, osteopenia, 0.7% increase from previous, 6.5% decrease from baseline (<5% change is not significant). Prior: BMD 0.961 g/cm2. Baseline: BMD 1.035 g/cm2. IDENTIFIED RISK FACTORS: Menopause, glucocorticoids (chronic). HISTORY OF FRACTURE: None listed. MEDICATIONS: Calcium supplements or multivitamin, vitamin D, bisphosphonates. MM/XR DEXA axial skeleton IMPRESSION: 1. DIAGNOSIS: Osteopenia based on the lowest T-score value of -1.9 in the femoral neck applying World Health Organization criteria. 2. 10-YEAR FRACTURE RISK PREDICTION, FRAX: Not performed in this patient on estrogen or bone building treatments. 3. Treatment Recommendations: NOF guidelines recommend consideration for treatment in postmenopausal women and men age 50 and older presenting with the following: -A hip or vertebral (clinical or morphometric) fracture. -T-score less than or equal to -2.5 at the femoral neck or spine after appropriate evaluation to exclude secondary causes. -Low bone mass at the hip or spine and a 10-year fracture probability by FRAX of greater than or equal to 3% for hip fracture or greater than or equal to 20% for major osteoporotic fracture based on the [place] adapted WHO algorithm. 4. Other Recommendations: All treatment decisions require clinical judgment and consideration of individual patient factors, including patient preferences, comorbidities, previous drug use, risk factors not captured in the FRAX model (e.g. frailty, falls, vitamin D deficiency, increased bone turnover, interval significant decline in bone density) and possible under or overestimation of fracture risk by FRAX. Additional medical evaluation for secondary cause of low bone mineral density may be appropriate. FUTURE SCAN RECOMMENDATION: People with diagnosed cases of osteoporosis or at high risk for fracture should have regular bone mineral density tests. For patients eligible for Medicare, routine testing is allowed once every 2 years. The testing frequency can be increased to one year for patients who have rapidly progressing disease, those who are receiving or discontinuing medical therapy to restore bone mass, or have additional risk factors.
[2023-08-29 15:39] LABS: Alanine Aminotransferase 12 U/L (0-31); Albumin Level 4.4 g/dL (3.5-5.0); Alkaline Phosphatase 29 U/L (39-117); Anion Gap 16 (12-20); Aspartate Amino Transferase 18 U/L (5-31); Bilirubin Total 1.2 mg/dL (0.0-1.0); Blood Urea Nitrogen 15 mg/dL (9-16); Calcium 10.2 mg/dL (8.4-10.2); Carbon Dioxide 25 mmol/L (22-29); Chloride 106 mmol/L (96-108); Estimated Glomerular Filt Rate 58; Glucose Random 80 mg/dL (60-115); Sodium 143 mmol/L (135-145); Total Protein 7.2 g/dL (6.5-8.0)
[2023-08-29 15:47] LABS: Vitamin D 25-OH Total 75.1 ng/mL (>30)
== END 2023-08-29 13:29 | disposition home or self-care (01) ==
LOC: HO.MAMMO 13:28
PROVIDERS: PCP Internal Medicine; Visit Provider Nurse Practitioner Family
DX: Z13.820 Encounter for screening for osteoporosis (principal); M85.80 Other specified disorders of bone density and structure, unspecified site; M81.0 Age-related osteoporosis without current pathological fracture; Z87.39 Personal history of other diseases of the musculoskeletal system and connective tissue; Z78.0 Asymptomatic menopausal state
CPT/HCPCS: 36415; 77080; 80053; 82306

== ENCOUNTER 2023-09-03 11:37 | Outpatient (AMB) | payer MEDICARE, BC, SELFPAY ==
[2023-09-03 12:04] VITALS: BP 112/60; PULSE 71; TEMP 36.4; O2SAT 98; BMI 26.3
--- NOTE | 2023-09-03 12:04 | A.OFFVIS_ITS ---
Intake Vital Signs 09/03/23 12:04 Height 5 ft 6 in Weight 162 lb 11.218 oz BMI 26.3 BP 112/60 Blood Pressure Location Lt brachial Position Sitting Pulse 71 Pulse Source Pulse Oximeter Temp 97.6 F Temp Source Skin Pulse Oximetry (%) 98 Oxygen Delivery Method Room Air Intake Visit Reasons: osteoporosis Intake Note: Patient presents today for osteoporosis follow up. Ingot Car Operator Required: No Accompanied by: Self / Same As Patient Allergies No Known Allergies Allergy (Verified 09/03/23 12:04) HPI HPI Comments History of Present Illness Details The patient returns for evaluation of her osteopenia. She remains on alendronate 70 mg weekly. She does not recall any history of fractures. She seems to be tolerating the alendronate without any side effects. She notes pain in the hands, more in the bottom of the thumb on the left. There is also pain in the feet across the 1st MTP joints. She does try to walk but has been walking less because the feet hurt at the MTP joints. There is a distant history of PMR but she does not have any return of PMR symptoms. There is occasional discomfort in the right shoulder. She had some physical therapy for that in the past. 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 Skin/Breast Details: Negative for itching, rash, hives, Raynaud's symptoms, sun sensitivity, and skin cancer Endo Details: Negative for polyuria and polydypsia Bryan/Lymph Details: Negative for excessive bruising or bleeding. Physical Exam Vital Signs: Last Vital Signs Temp 97.6 F 09/03/23 12:04 Pulse 71 09/03/23 12:04 BP 112/60 09/03/23 12:04 Pulse Ox 98 09/03/23 12:04 Oxygen Delivery Method Room Air 09/03/23 12:04 BMI result Body Mass Index 26.3 APPEARANCE: Patient in no acute distress EYES no redness, pupils equal and reactive to light, eyelids normal. No temporal artery tenderness, redness or swelling. EXTREMITIES: No edema. There is some mild pretibial tenderness bilaterally. The skin does not look red or indurated. There is no calf tenderness; she has normal peripheral pulses. NEURO: Oriented and alert x3. No focal weakness. Reflexes symmetric. Gait normal. SKIN: No inflammatory or neoplastic lesions. Normal color and turgor JOINT EXAM: ?? Cervical Spine:? Full range of motion with mild discomfort at the extremes. There is some minimal posterior cervical muscle tenderness. Thoracic Spine: No scoliosis.? No tenderness on palpation. Lumbar Spine: Alignment normal.? Full range of motion without pain, no tenderness. Hands:?LEFT: Normal range of motion. Tenderness to palpation at the base of the thumb. There is some nontender bony enlargement at the thumb IP and the 2nd PIP. There is also some nontender bony enlargement at the 5th D IP joint. There is no thenar atrophy or sensory loss. RIGHT: Normal range of motion. There is mild to moderate bony enlargement and mild tenderness at the base of the thumb. There is nontender bony enlargement at the thumb IP and 2nd PIP joints. There is also some bony enlargement at all of the PIP joints but without tenderness. There is no soft tissue swelling, thenar atrophy or sensory loss. Wrists:? Normal pain-free range of motion without tenderness, swelling, increased warmth or erythema. Elbows: Normal pain-free range of motion without tenderness, swelling, increased warmth or erythema. Shoulders:?? Right: Mild pain with abduction at 150 degrees or with extremes of rotation. There is some slight anterior tenderness without swelling, adenopathy or abductor weakness. Left: Full range of motion without pain. No tenderness, weakness, swelling, increased warmth or erythema. Hips:? Right: Mild buttock and lumbar pain with extremes of normal external rotation or abduction. No groin pain with motion. Left: Full range of motion without pain. Hip bursa:? No tenderness. Knees:?? Normal pain-free range of motion with mild patellofemoral crepitus but no effusion, tenderness, swelling, increased warmth or erythema.? Ankles:? Normal pain-free range of motion without tenderness, swelling, increased warmth or erythema. Feet:? Normal pain-free range of motion with mild bony enlargement at the 1st MTP bilaterally. There was areas have mild tenderness. There is no soft tissue swelling, increased warmth or erythema. Tender points:.? No tenderness to digital palpation at the occiput, trapezius, second rib, lateral epicondyle, knees, greater trochanter and gluteal area bilaterally. ? Results Reviewed Results Reviewed: Laboratory Tests 08/29/23 14:02 25-OH Vitamin D Total 75.[address] [place] [address] DEXA Reportd Patient: Riri Daniels MR#: [id number] : 1950 Acct:[id number] Age/Sex: 73 / F ADM Date: 08/29/[address]: Randi Brian NP Ordering Physician: Randi Brian NP Results: Date of Service: 08/29/23 Follow Up: Procedure(s): XR DEXA axial skeleton Accession Number(s): [id number] cc: Darryl Peralta MD; Randi Brian NP~ EXAMINATION: BONE DENSITOMETRY CLINICAL INDICATION: Personal history of other diseases of the musculoskeletal system. COMPARISON: Previous BD dated 07/19/2021 and baseline BD dated 04/09/2011. TECHNIQUE: Using a [employer] DXA System (software version: 13.1) manufactured by [facility], dual-energy x-ray absorptiometry was performed of the lumbar spine and left hip. The images are of good technical quality. Summary results are attached. FINDINGS: LEFT FEMUR, NECK: Current: BMD 0.769 g/cm2, Z-score -0.2, T-score -1.9, osteopenia. Prior: BMD 0.869 g/cm2. Baseline: BMD 0.929 g/cm2. LEFT FEMUR, TOTAL: Current: BMD 0.810 g/cm2, Z-score -0.1, T-score -1.6, osteopenia, 6.1% decrease from previous, 14.0% decrease from baseline (<5% change is not significant). Prior: BMD 0.863 g/cm2. Baseline: BMD 0.942 g/cm2. AP SPINE L1-L2 (excluding L3 and L4): The data of L1-L4 has been changed to exclude the L3 and L4 vertebral bodies, because increased degenerative sclerosis at these levels may cause overestimation of lumbar spine density. Current: BMD 0.968 g/cm2, Z-score -0.2, T-score -1.6, osteopenia, 0.7% increase from previous, 6.5% decrease from baseline (<5% change is not significant). Prior: BMD 0.961 g/cm2. Baseline: BMD 1.035 g/cm2. IDENTIFIED RISK FACTORS: Menopause, glucocorticoids (chronic). HISTORY OF FRACTURE: None listed. MEDICATIONS: Calcium supplements or multivitamin, vitamin D, bisphosphonates. MM/XR DEXA axial skeleton IMPRESSION: 1. DIAGNOSIS: Osteopenia based on the lowest T-score value of -1.9 in the femoral neck applying World Health Organization criteria. 2. 10-YEAR FRACTURE RISK PREDICTION, FRAX: Not performed in this patient on estrogen or bone building treatments. 3. Treatment Recommendations: NOF guidelines recommend consideration for treatment in postmenopausal women and men age 50 and older presenting with the following: -A hip or vertebral (clinical or morphometric) fracture. -T-score less than or equal to -2.5 at the femoral neck or spine after appropriate evaluation to exclude secondary causes. -Low bone mass at the hip or spine and a 10-year fracture probability by FRAX of greater than or equal to 3% for hip fracture or greater than or equal to 20% for major osteoporotic fracture based on the [place] adapted WHO algorithm. 4. Other Recommendations: All treatment decisions require clinical judgment and consideration of individual patient factors, including patient preferences, comorbidities, previous drug use, risk factors not captured in the FRAX model (e.g. frailty, falls, vitamin D deficiency, increased bone turnover, interval significant decline in bone density) and possible under or overestimation of fracture risk by FRAX. Additional medical evaluation for secondary cause of low bone mineral density may be appropriate. FUTURE SCAN RECOMMENDATION: People with diagnosed cases of osteoporosis or at high risk for fracture should have regular bone mineral density tests. For patients eligible for Medicare, routine testing is allowed once every 2 years. The testing frequency can be increased to one year for patients who have rapidly progressing disease, those who are receiving or discontinuing medical therapy to restore bone mass, or have additional risk factors. Dictated By: Karan Hunter MD Assessment & Plan Assessment & Plan (1) Osteoarthritis of hands, bilateral: Code(s): M19.041 - Primary osteoarthritis, right hand; M19.042 - Primary osteoarthritis, left hand (2) H/O polymyalgia rheumatica: Code(s): Z87.39 - Personal history of other diseases of the musculoskeletal system and connective tissue (3) Osteoarthritis of both feet: Code(s): M19.071 - Primary osteoarthritis, right ankle and foot; M19.072 - Primary osteoa rthritis, left ankle and foot (4) Right rotator cuff tendonitis: Code(s): M75.81 - Other shoulder lesions, right shoulder (5) Osteopenia: Comment: Alendronate 06/18/2019- present Code(s): M85.80 - Other specified disorders of bone density and structure, unspecified site Plan The patient has a history of PMR but no active symptoms are evident today. The patient does have findings and symptoms of osteoarthritis involving the hands, mostly at the thumb region as well as at the 1st MTP of the feet. Symptomatic measures for those problems are reviewed. She could visit a bow rehairer for further advice on the foot pain. She will let us know if she wants a referral. The right shoulder has some pain with range of motion consistent with rotator cuff tendinitis and some impingement. I did instruct her in some gentle, [id number] exercises here in the office. If symptoms continue we would do an x-ray and send her for physical therapy. The bone density did recently done did show some improvement in the LS spine but some worsening in the femoral neck and femur. The values still are not within the osteoporosis range but she had a high FRAX scores when the alendronate was started. She is tolerating the al endronate so I think she should continue it for now. Another bone density in 2 years or so would be reasonable. We will aim for follow-up at about a year. Review of the bone density, her history, exam today took 32 minutes. Coding Level of Care Code Est Pt Level 4 (53753) Diagnoses Osteoarthritis of hands, bilateral M19.041; M19.042 H/O polymyalgia rheumatica Z87.39 Osteoarthritis of both feet M19.071; M19.072 Right rotator cuff tendonitis M75.81 Osteopenia M85.80
== END 2023-09-03 12:48 | disposition home or self-care (01) ==
PROVIDERS: PCP Internal Medicine; Visit Provider Internal Medicine Rheumatology
DX: M19.041 Primary osteoarthritis, right hand (principal); M19.042 Primary osteoarthritis, left hand; Z87.39 Personal history of other diseases of the musculoskeletal system and connective tissue; M19.071 Primary osteoarthritis, right ankle and foot; M19.072 Primary osteoarthritis, left ankle and foot; M75.81 Other shoulder lesions, right shoulder; M85.80 Other specified disorders of bone density and structure, unspecified site
CPT/HCPCS: 99214

== ENCOUNTER → 2023-09-03 11:37 | Outpatient (BNVA) | payer MEDICARE, BC, SELFPAY | PROVIDERS: PCP Internal Medicine; Visit Provider Internal Medicine Rheumatology | DX: M19.041 Primary osteoarthritis, right hand (principal); M19.042 Primary osteoarthritis, left hand; M19.071 Primary osteoarthritis, right ankle and foot; M19.072 Primary osteoarthritis, left ankle and foot; M75.81 Other shoulder lesions, right shoulder; M85.80 Other specified disorders of bone density and structure, unspecified site; Z87.39 Personal history of other diseases of the musculoskeletal system and connective tissue | CPT/HCPCS: 99212 ==

== ENCOUNTER 2023-10-17 14:08 | Outpatient (AMB) | payer MEDICARE, BC, SELFPAY ==
--- NOTE | 2023-10-17 14:08 | A.OFFVIS_ITS ---
Intake Vital Signs 10/17/23 14:10 Height 5 ft 6 in Weight 161 lb 9.581 oz BMI 26.1 BP 102/64 Blood Pressure Location Rt brachial Position Sitting Pulse 87 Pulse Source Pulse Oximeter Temp 96.8 F Temp Source Skin Pulse Oximetry (%) 97 Oxygen Delivery Method Room Air Intake Visit Reasons: Right thumb pain/Swollen Intake Note: Pt last seen by Dr Claire on 09/03/23, presents today for eval. C/o 1 week of pain and swelling on right thumb Appraisal Coordinator Required: No Accompanied by: Self / Same As Patient Allergies No Known Allergies Allergy (Verified 10/17/23 14:13) Medication List - Last Reconciled 10/17/23 by Glenna Leavitt MD acetaminophen ER (Tylenol Arthritis Pain) 1,300 mg PO Q12H PRN albuterol sulfate 90 mcg/actuation (Ventolin HFA) 2 puffs inhalation Q6H PRN alendronate 70 mg PO QWEEK aripiprazole (Abilify) 5 mg PO BEDTIME fhmkrgn-dhyrrgssfkife-ytkigxbf 250-250-65 mg (Excedrin Extra Strength) 2 tabs PO Q6H PRN calcium carbonate-vitamin D3 600 mg-5 mcg (200 unit) (Calcium 600 + D(3)) caps PO .twice a day divalproex ER 500 mg PO BEDTIME lamotrigine 150 mg PO DAILY melatonin mg PO .evening sumatriptan succinate (Imitrex) 50 mg PO Q2-4H PRN therapeutic multivitamin 1 tab PO DAILY HPI HPI Comments History of Present Illness Details This is a 73-year-old female who follows regularly with Dr. Claire for history of PMR and osteopenia. She presents for an urgent visit due one- week history of to right thumb, pain swelling and limitation of movement. She does not recall any trauma to the joint . 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 Review of Systems [facility] [employer] [facility] Reports arthralgias, Reports joint swelling, Reports limited range of motion and Reports stiffness Physical Exam Vital Signs: Last Vital Signs Temp 96.8 F 10/17/23 14:10 Pulse 87 10/17/23 14:10 BP 102/64 10/17/23 14:10 Pulse Ox 97 10/17/23 14:10 Oxygen Delivery Method Room Air 10/17/23 14:10 BMI result Body Mass Index 26.1 Const General: cooperative, healthy appearing and comfortable Nutritional Appearance: average body habitus Orientation/consciousness: patient oriented x3 Limitations: no limitations Resp Effort & Inspection: normal respiratory effort and able to speak in complete sentences Skin General skin exam: no rashes or lesions noted Neuro General: patient oriented x3 Extrem Other: Mild osteoarthritic changes of both hands Mild tenderness at left 1st CMC joint Mild swelling of entire right thumb Tenderness to palpation and a firm nodule at the palmar aspect of the base of the right thumb. Right thumb triggering No active synovitis otherwise Office Procedures Tendon Injection Tendon Injection Details: With patient's consent, The right palm was prepped with ChloraPrep and alcohol. Under a topical ethyl chloride spray the [1st] flexor tendon sheath was injected with 20 mg of triamcinolone and 0.1 cc of 1% lidocaine. The patient tolerated the procedure without any acute adverse effects. [id number] Tendon Sheath Injection All charges added?: Procedure code (CPT) selection complete Assessment & Plan Assessment & Plan (1) Trigger thumb, right thumb: Code(s): M65.311 - Trigger thumb, right thumb Plan: We discussed different treatment options. Patient opted to proceed with steroid injection. With patient's consent, right 1st flexor tendon was injected with Kenalog today. Follow-up as needed Plan I spent 15 minutes reviewing patient's chart, evaluating patient, counseling patient and documenting in the chart Orders: Orders AMB Injection-Tendon Today M65.311 - Trigger thumb, right thumb Coding Level of Care Code Est Pt Level 3 (34826) Diagnoses Trigger thumb, right thumb M65.311 CPT Codes Tendon Injection - Tendon Injection 1: [id number] Tendon Sheath Injection ([id number])
[2023-10-17 14:10] VITALS: BP 102/64; PULSE 87; TEMP 36; O2SAT 97; BMI 26.1
== END 2023-10-17 14:36 | disposition home or self-care (01) ==
PROVIDERS: PCP Internal Medicine; Visit Provider Student in an Organized Health Care Education/Training Program
DX: M65.311 Trigger thumb, right thumb (principal)
CPT/HCPCS: 20550; 99213

== ENCOUNTER → 2023-10-17 14:08 | Outpatient (BNVA) | payer MEDICARE, BC, SELFPAY | PROVIDERS: PCP Internal Medicine; Visit Provider Student in an Organized Health Care Education/Training Program | DX: M65.311 Trigger thumb, right thumb (principal) | CPT/HCPCS: 20550; 99212 ==

== ENCOUNTER 2023-12-03 14:13 | Outpatient (REF) | payer MEDICARE, BC, SELFPAY | END 2023-12-03 14:14 | disposition home or self-care (01) | LOC: HO.MAMMO 14:13 | PROVIDERS: PCP Internal Medicine; Visit Provider Internal Medicine | DX: Z12.31 Encounter for screening mammogram for malignant neoplasm of breast (principal) | CPT/HCPCS: 77063; 77067 ==

== ENCOUNTER → 2023-12-03 14:30 | Outpatient (BNV) | payer MEDICARE, BC, SELFPAY | PROVIDERS: PCP Internal Medicine; Visit Provider Radiology Diagnostic Radiology | DX: Z12.31 Encounter for screening mammogram for malignant neoplasm of breast (principal) | CPT/HCPCS: 77063; 77067 ==

== ENCOUNTER 2024-04-07 15:27 | Outpatient (REF) | payer MEDICARE, BC, SELFPAY ==
[2024-04-07 18:50] LABS: Anion Gap 15 (12-20); Blood Urea Nitrogen 13 mg/dL (9-16); Calcium 9.7 mg/dL (8.4-10.2); Carbon Dioxide 23 mmol/L (22-29); Chloride 109 mmol/L (96-108); Estimated Glomerular Filt Rate > 60; Glucose Random 106 mg/dL (60-115); Potassium 3.7 mmol/L (3.3-5.1); Sodium 143 mmol/L (135-145)
[2024-04-07 19:13] LABS: Erythrocyte Sedimentation Rate 17 MM/HR (0-20)
[2024-04-08 18:03] LABS: Lyme Abs Screen <0.90 index
== END 2024-04-07 15:28 | disposition home or self-care (01) ==
LOC: HO.LAB 15:27
PROVIDERS: PCP Internal Medicine; Visit Provider Psychiatry & Neurology Neurology
DX: G44.229 Chronic tension-type headache, not intractable (principal)
CPT/HCPCS: 36415; 80048; 85652; 86617; 86618

== ENCOUNTER 2024-05-21 09:22 | Outpatient (REF) | payer MEDICARE, BC, SELFPAY ==
--- NOTE | ~2024-05-21 | MR_ITS ---
EXAMINATION: MR BRAIN WITHOUT AND WITH CONTRAST CLINICAL INFORMATION: Chronic tension headache. Chronic migraine. COMPARISON: Brain MRI from 02/09/2009. TECHNIQUE: MRI of the brain was obtained using routine sequences without and following the administration of 7 mL of Gadavist intravenous contrast. FINDINGS: No focal restricted diffusion is demonstrated to suggest acute or subacute cerebral ischemia. No evidence of acute or chronic hemorrhagic products on heme-sensitive imaging. Scattered periventricular and deep white matter T2 FLAIR hyperintensities consistent with mild underlying microangiopathy. Proportional prominence of the ventricles and sulcal spaces without evidence of obstructive hydrocephalus. No abnormal mass effect. No midline shift. Normal appearance of the pituitary gland. Normal positioning of the cerebellar tonsils. Normal arterial and venous vascular flow voids are present. No abnormal contrast enhancement. Normal, homogeneous marrow signal. Mild mucosal thickening of the paranasal sinuses. Moderate leftward nasal septal deviation. No signal abnormalities within the mastoids. Bilateral lens extractions. MR/MR head/brain wo/w con IMPRESSION: 1. No acute intracranial abnormalities. No abnormal intracranial enhancement. 2. 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
[2024-05-21] MEDS: gadobutroL 7.5 ML VIAL IVPUSH (10:48)
== END 2024-05-21 09:23 | disposition home or self-care (01) ==
LOC: HO.MRI 09:22
PROVIDERS: PCP Internal Medicine; Visit Provider Psychiatry & Neurology Neurology
DX: G43.709 Chronic migraine without aura, not intractable, without status migrainosus (principal)
CPT/HCPCS: 70553; A9585

== ENCOUNTER 2024-08-05 11:07 | Outpatient (REF) | payer MEDICARE, BC, SELFPAY ==
[2024-08-05 11:10] LABS: MANUAL DIFF FLAG NO
[2024-08-05 11:27] LABS: Appearance Urine Clear; Color Urine Yellow; Glucose Urine UA Negative (Negative); Leukocyte Esterase Urine Negative (Negative); Nitrite Urine Negative (Negative); PH 5.5 (5.0-9.0); Urine Blood Negative (Negative); Urine Ketones Negative (Negative); Urine Protein Negative (Neg-Trace)
[2024-08-05 11:35] LABS: Bacteria Urine None Seen (None Seen); Hyaline Casts Urine 0-2 /LPF (0-2); RBC Urine 0-2 /HPF (0-2); Squamous Epithelial Cell Urine 0-2 /HPF (0-2); WBC Urine 0-5 /HPF (0-5)
[2024-08-05 11:44] LABS: Basophils Percent Auto 0.7 % (0-2); Eosinophils Absolute Auto 0.1 X10*3/uL (0.0-0.4); Eosinophils Percent Auto 1.1 % (0-4); Hemoglobin 12.3 g/dl (12.0-16.0); Lymphocytes Absolute Auto 2.1 X10*3/uL (1.2-4.9); Lymphocytes Percent Auto 47.3 % (20-40); Mean Corpuscular HGB Conc 34.2 g/dl (31.0-35.0); Mean Corpuscular Hemoglobin 31.3 pg (27.0-33.0); Mean Corpuscular Volume 91.6 fL (80.0-98.0); Mean Platelet Volume 9.3 fL (9.4-12.3); Monocytes Absolute Auto 0.3 X10*3/uL (0.1-1.2); Monocytes Percent Auto 6.6 % (2-11); Neutrophils Absolute Auto 1.9 x10*3/uL (2.0-8.3); Neutrophils Percent Auto 44.3 % (45-73); Platelet Count 188 X10*3/uL (160-400); Red Blood Count 3.93 X10*6/uL (4.20-5.50); Red Cell Distribution Width 13.3 % (11.0-16.0); White Blood Count 4.4 X10*3/uL (4.8-10.8)
[2024-08-05 12:31] LABS: Alanine Aminotransferase 19 U/L (0-31); Alkaline Phosphatase 33 U/L (39-117); Anion Gap 13 (12-20); Aspartate Amino Transferase 24 U/L (5-31); Bilirubin Total 0.9 mg/dL (0.0-1.0); Blood Urea Nitrogen 15 mg/dL (9-16); Calcium 9.5 mg/dL (8.4-10.2); Carbon Dioxide 26 mmol/L (22-29); Chloride 109 mmol/L (96-108); Cholesterol 181 mg/dL (<200); Estimated Glomerular Filt Rate > 60; Glucose Fasting 90 mg/dL (60-99); HDL Cholesterol 55 mg/dL (>40); LDL Cholesterol Calculated 108 mg/dL (<100); Potassium 4.3 mmol/L (3.3-5.1); Sodium 144 mmol/L (135-145); Total Protein 6.9 g/dL (6.5-8.0); Triglycerides 91 mg/dL (<150)
== END 2024-08-05 11:08 | disposition home or self-care (01) ==
LOC: HO.LNP 11:07
PROVIDERS: Visit Provider Internal Medicine
DX: D72.820 Lymphocytosis (symptomatic) (principal)
CPT/HCPCS: 80053; 80061; 81001; 85025

== ENCOUNTER 2024-09-17 07:57 | Outpatient (AMB) | payer MEDICARE, BC, SELFPAY ==
--- NOTE | 2024-09-17 07:58 | MHC.OFFVIS ---
Vital Signs 09/17/24 08:03 Height 5 ft 6 in Weight 160 lb 0.889 oz BMI 25.8 BP 102/60 Blood Pressure Location Lt brachial Position Sitting Pulse 71 Pulse Source Pulse Oximeter Pulse Oximetry (%) 99 Oxygen Delivery Method Room Air Intake Visit Reasons: osteoporosis/cm Intake Note: Patient presents for Osteoporosis. Allergies No Known Allergies Allergy (Verified 09/17/24 08:01) Medication List - Last Reconciled 09/17/24 by Kerry Londono MD acetaminophen ER (Tylenol Arthritis Pain) 1,300 mg PO Q12H PRN albuterol sulfate 90 mcg/actuation (Ventolin HFA) 2 puffs inhalation Q6H PRN aripiprazole (Abilify) 5 mg PO BEDTIME zogzsjg-nsahoymfwdbmh-hhjnmtee 250-250-65 mg (Excedrin Extra Strength) 2 tabs PO Q6H PRN calcium carbonate-vitamin D3 600 mg-5 mcg (200 unit) (Calcium 600 + D(3)) 1 cap PO .twice a day celecoxib (Celebrex) 200 mg PO BID lamotrigine 150 mg PO DAILY melatonin mg PO .evening sumatriptan succinate (Imitrex) 50 mg PO Q2-4H PRN therapeutic multivitamin 1 tab PO DAILY HPI Comments Details: Patient is a 74-year-old female with polymyalgia rheumatica, OA and osteopenia who presents today for follow-up. Interval History: Patient last seen 10/17/[address] Glenna Leavitt. At that time it was an urgent visit for pain in right thumb. Which was assessed as trigger thumb and was subsequently injected. Today, She reports improvement in her thumb after injection at last visit. However is currently having bilateral 1st CMC joint pain with movement. States that Tylenol Arthritis is not helpful. She takes 2 tablets twice a day. She also uses a splint made in occupational therapy which she has does help. Denies any vision changes or prolonged temporal headaches. Rheumatologic History: Patient diagnosed with polymyalgia rheumatica 04/05/2017 after presenting with prolonged pain and stiffness in her shoulders and then found to have elevated inflammatory markers. Treated with prednisone until 02/03/2018 now on Celebrex b.i.d. since 05/06/2018 which she uses as needed. No recurrence of her symptoms of PMR. No evidence or symptoms of GCA. 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 Review of Systems Const Details: Review of Systems Constitutional: Denies fever, chills, weight loss ENT: Denies vision changes, eye pain or eye redness, dental caries, dry mouth GI: Denies nausea, vomiting, diarrhea, abdominal pain, change in BM Pulm: Denies SOB, BURGESS, hemoptysis, wheezing Cards: Denies chest pain, palpitations Skin: Denies Raynaud's, rash, nail changes, photosensitivity, TECHNICAL SERVICES CONSULTANT: Denies headaches, weakness, paresthesias, recurrent falls MSK: as per HPI All other systems reviewed and are unremarkable except noted above Physical Exam Physical Examination CONSTITUITIONAL Patient alert and cooperative. Well appearing and in no apparent painful distress HEENT Conjunctiva and sclera clear. ?Pupils equal round and reactive to light. ?No lymphadenopathy. ?Normal dentition. No oral or nasal ulcers noted. No evidence of discoid rash to the acosta of ears CHEST/RESPIRATORY SYSTEM Normal respiratory effort and able to speak in complete sentences. ?Clear to auscultation bilaterally. ?No crackles, rales, rhonchi, wheezes heard. CARDIAC SYSTEM Regular rate and rhythm. ?S1 and S2 heard no murmurs. 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 ?Heberden's nodes and Bud's nodes noted bilaterally. Synovial hypertrophy noted to the 2nd MCP of the left hand. No tenderness to palpation. No synovitis noted. Wrists: ?Full range of motion at the wrists without pain. ?No tenderness to palpation or synovitis noted to the wrists. Elbows: Full range of motion without pain. No tenderness, weakness, swelling, increased warmth or erythema. Shoulders: Full range of motion without pain. No tenderness, weakness, swelling, increased warmth or erythema. Hips: Full range of motion without pain. Hip bursa: No tenderness to palpation Knees: ?Full range of motion. ?No tenderness, swelling, increased warmth or erythema.?No effusion or crepitations Ankles: Full range of motion. ?No tenderness, swelling, increased warmth or erythema.? Feet: ?Negative squeeze test. ?No tenderness to palpation or swelling of the MTPs. Tender points:??No tenderness to palpation of the neck, shoulders, chest, elbows, hips, buttocks or knees. SKIN Skin intact without rashes. Results Reviewed Results Reviewed: DEXA 08/29/23 FINDINGS: LEFT FEMUR, NECK: Current: BMD 0.769 g/cm2, Z-score -0.2, T-score -1.9, osteopenia. Prior: BMD 0.869 g/cm2. Baseline: BMD 0.929 g/cm2. LEFT FEMUR, TOTAL: Current: BMD 0.810 g/cm2, Z-score -0.1, T-score -1.6, osteopenia, 6.1% decrease from previous, 14.0% decrease from baseline (<5% change is not significant). Prior: BMD 0.863 g/cm2. Baseline: BMD 0.942 g/cm2. AP SPINE L1-L2 (excluding L3 and L4): The data of L1-L4 has been changed to exclude the L3 and L4 vertebral bodies, because increased degenerative sclerosis at these levels may cause overestimation of lumbar spine density. Current: BMD 0.968 g/cm2, Z-score -0.2, T-score -1.6, osteopenia, 0.7% increase from previous, 6.5% decrease from baseline (<5% change is not significant). Prior: BMD 0.961 g/cm2. Baseline: BMD 1.035 g/cm2. Laboratory Tests 07/26/22 08/05/23 08/11/23 08:00 07:00 11:01 WBC 5.3 4.7 L RBC 4.30 4.10 L Hgb 13.3 12.8 Hct 38.8 37.7 Plt Count 202 185 ESR 11 Sodium Potassium Chloride Carbon Dioxide BUN Creatinine AST 19 ALT 10 Alkaline Phosphatase 27 L 25-OH Vitamin D Total 08/29/23 04/07/24 08/05/24 14:02 15:37 08:30 WBC 4.4 L RBC 3.93 L Hgb 12.3 Hct 36.0 L Plt Count 188 ESR 17 Sodium 143 143 144 Potassium 4.0 3.7 4.3 Chloride 106 109 H 109 H Carbon Dioxide 25 23 26 BUN 15 13 15 Creatinine 0.95 0.90 0.86 AST 18 24 ALT 12 19 Alkaline Phosphatase 29 L 33 L 25-OH Vitamin D Total 75.1 Assessment & Plan Assessment & Plan (1) Osteopenia: Comment: DEXA 07/2021: AP Spine L1-L2 -1.7, Left femur neck -1.2, Left femur total -1.1 DEXA : AP Spine L1-L2 -1.6, Left femur neck -1.9, Left femur total -1.6 Alendronate 06/18/2019- present Code(s): M85.80 - Other specified disorders of bone density and structure, unspecified site Category: Medical Qualifiers: Osteopenia location: multiple sites Qualified Code(s): M85.89 - Other specified disorders of bone density and structure, multiple sites Plan: #Osteopenia Patient has osteopenia is pretty much stable. She has been on alendronate for the past 5 years. We will go on a drug holiday for the next 2 years. And then repeat DEXA. (2) Osteoarthritis of hands, bilateral: Code(s): M19.041 - Primary osteoarthritis, right hand; M19.042 - Primary osteoarthritis, left hand Category: Medical Qualifiers: Osteoarthritis type: primary Qualified Code(s): M19.041 - Primary osteoarthritis, right hand; M19.042 - Primary osteoarthritis, left hand Plan: #Bilateral Hand OA Patient with bilateral hand OA specifically involving the 1st CMC joint. Recommended Paraffin wax bath Topical diclofenac up to 4 times a day Celebrex 200 mg tablet twice a day Topical capsaicin patches (3) PMR (polymyalgia rheumatica): Comment: Diagnosed in 2017, completed steroid course in 2018. And in remission since then Code(s): M35.3 - Polymyalgia rheumatica Category: Medical Plan: #PMR Currently in remission No signs or symptoms concerning for GCA Informed of signs to look out for including temporal headache and vision changes. Plan I spent 20 minutes reviewing the record and labs, seeing the patient, discussing the treatment plan and documenting in the medical record ? For next visit: Conservative management for OA review Possible bilateral CMC injection Orders: Orders Comprehensive Met. Panel 6 Months E55.9 - Vitamin D deficiency, unspecified, M35.3 - Polymyalgia rheumatica, M85.89 - Other specified disorders of bone density and structure, multiple sites Complete Blood Count Auto Diff 6 Months E55.9 - Vitamin D deficiency, unspecified, M35.3 - Polymyalgia rheumatica, M85.89 - Other specified disorders of bone density and structure, multiple sites Vitamin D 25-OH (D2 and D3) 6 Months E55.9 - Vitamin D deficiency, unspecified, M35.3 - Polymyalgia rheumatica, M85.89 - Other specified disorders of bone density and structure, multiple sites C Reactive Protein 6 Months E55.9 - Vitamin D deficiency, unspecified, M35.3 - Polymyalgia rheumatica, M85.89 - Other specified disorders of bone density and structure, multiple sites Erythrocyte Sedimentation Rate 6 Months E55.9 - Vitamin D deficiency, unspecified, M35.3 - Polymyalgia rheumatica, M85.89 - Other specified disorders of bone density and structure, multiple sites Alkaline Phosphatase Bone 6 Months E55.9 - Vitamin D deficiency, unspecified, M35.3 - Polymyalgia rheumatica, M85.89 - Other specified disorders of bone density and structure, multiple sites Medications: New celecoxib (Celebrex) 200 mg PO BID 90 caps 1RF M19.041 - Primary osteoarthritis, right hand, M19.042 - Primary osteoarthritis, left hand Changed From calcium carbonate-vitamin D3 600 mg-5 mcg (200 unit) (Calcium 600 + D(3)) PO .twice a day M85.89 - Other specified disorders of bone density and structure, multiple sites To calcium carbonate-vitamin D3 600 mg-5 mcg (200 unit) (Calcium 600 + D(3)) 1 cap PO .twice a day 180 caps 1RF M85.89 - Other specified disorders of bone density and structure, multiple sites Discontinued alendronate Discontinued Reason: Doctor's Order 70 mg PO QWEEK 12 tabs 0RF M81.0 - Age-related osteoporosis without current pathological fracture Coding Level of Care Code Est Pt Level 3 (88286) Diagnoses Osteopenia of multiple sites M85.89 Osteopenia location: multiple sites Primary osteoarthritis of both hands M19.041; M19.042 Osteoarthritis type: primary PMR (polymyalgia rheumatica) M35.3
[2024-09-17 08:03] VITALS: BP 102/60; PULSE 71; O2SAT 99; BMI 25.8
== END 2024-09-17 08:39 | disposition home or self-care (01) ==
LOC: HO.RHE 07:57
PROVIDERS: PCP Internal Medicine; Visit Provider Student in an Organized Health Care Education/Training Program
DX: M85.89 Other specified disorders of bone density and structure, multiple sites (principal); M19.041 Primary osteoarthritis, right hand; M19.042 Primary osteoarthritis, left hand; M35.3 Polymyalgia rheumatica
CPT/HCPCS: 99213

== ENCOUNTER → 2024-09-17 07:57 | Outpatient (BNVA) | payer MEDICARE, BC, SELFPAY | PROVIDERS: PCP Internal Medicine; Visit Provider Student in an Organized Health Care Education/Training Program | DX: M85.89 Other specified disorders of bone density and structure, multiple sites (principal); M19.041 Primary osteoarthritis, right hand; M19.042 Primary osteoarthritis, left hand; M35.3 Polymyalgia rheumatica; Z79.83 Long term (current) use of bisphosphonates | CPT/HCPCS: 99212 ==

== ENCOUNTER 2024-10-11 12:19 | Outpatient (REF) | payer MEDICARE, BC, SELFPAY ==
[2024-10-11 12:33] LABS: MANUAL DIFF FLAG NO
[2024-10-11 12:52] LABS: Basophils Absolute Auto 0.1 X10*3/uL (0.0-0.2); Basophils Percent Auto 1.4 % (0-2); Eosinophils Absolute Auto 0.1 X10*3/uL (0.0-0.4); Eosinophils Percent Auto 1.9 % (0-4); Hematocrit 36.5 % (37.0-47.0); Hemoglobin 12.4 g/dl (12.0-16.0); Imm Gran Abs Auto 0.01 X10*3/uL (0.00-0.03); Imm Gran Pct Auto 0.2 % (0.0-0.4); Mean Corpuscular Hemoglobin 30.4 pg (27.0-33.0); Mean Corpuscular Volume 89.5 fL (80.0-98.0); Mean Platelet Volume 8.9 fL (9.4-12.3); Monocytes Absolute Auto 0.3 X10*3/uL (0.1-1.2); Neutrophils Absolute Auto 2.8 x10*3/uL (2.0-8.3); Neutrophils Percent Auto 53.5 % (45-73); Platelet Count 193 X10*3/uL (160-400); Red Blood Count 4.08 X10*6/uL (4.20-5.50); Red Cell Distribution Width 12.8 % (11.0-16.0); White Blood Count 5.2 X10*3/uL (4.8-10.8)
== END 2024-10-11 12:20 | disposition home or self-care (01) ==
LOC: HO.LAB 12:19
PROVIDERS: PCP Internal Medicine; Visit Provider Internal Medicine
DX: D70.9 Neutropenia, unspecified (principal)
CPT/HCPCS: 36415; 85025

== ENCOUNTER 2024-12-01 09:36 | Outpatient (AMB) | payer MEDICARE, BC, SELFPAY ==
--- NOTE | 2024-12-01 10:05 | A.OFFVIS_ITS ---
Vital Signs 12/01/24 10:20 Height 5 ft 6 in Weight 160 lb 7.944 oz BMI 25.9 BP 112/64 Blood Pressure Location Rt brachial Position Sitting Pulse 64 Pulse Source Pulse Oximeter Pulse Oximetry (%) 96 Oxygen Delivery Method Room Air Intake Visit Reasons: Osteoporosis(injection) Intake Note: Patient presents for Osteoporosis and injection. Allergies No Known Allergies Allergy (Verified 12/01/24 10:19) HPI Comments Details: Patient is a 74-year-old female with polymyalgia rheumatica, OA and osteopenia who presents today for follow-up. Interval History: Patient last seen 09/2024 with me. At that time it was a follow up visit for her PMR and OA involving bilateral hands. No evidence of return of PMR symptoms at that time and conservative management was employed for her hand OA. Today she is here for an urgent visit complaining of pain at the base of the left thumb. Patient is left handed and she has been experiencing worsening pain since the end of October Rheumatologic History: Patient diagnosed with polymyalgia rheumatica 04/05/2017 after presenting with prolonged pain and stiffness in her shoulders and then found to have elevated inflammatory markers. Treated with prednisone until 02/03/2018 now on Celebrex b.i.d. since 05/06/2018 which she uses as needed. No recurrence of her symptoms of PMR. No evidence or symptoms of GCA. 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 Review of Systems Const Details: Review of Systems Constitutional: Denies fever, chills, weight loss ENT: Denies vision changes, eye pain or eye redness, dental caries, dry mouth GI: Denies nausea, vomiting, diarrhea, abdominal pain, change in BM Pulm: Denies SOB, BURGESS, hemoptysis, wheezing Cards: Denies chest pain, palpitations Skin: Denies Raynaud's, rash, nail changes, photosensitivity, LOAN INTERVIEWER: Denies headaches, weakness, paresthesias, recurrent falls MSK: as per HPI All other systems reviewed and are unremarkable except noted above Physical Exam Vital Signs: Last Vital Signs Pulse 64 12/01/24 10:20 BP 112/64 12/01/24 10:20 Pulse Ox 96 12/01/24 10:20 Oxygen Delivery Method Room Air 12/01/24 10:20 BMI result Body Mass Index 25.9 Vital signs reviewed Physical Examination CONSTITUITIONAL Patient alert and cooperative. Well appearing and in no apparent painful distress HEENT Conjunctiva and sclera clear. ?Pupils equal round and reactive to light. ?No lymphadenopathy. ? CHEST/RESPIRATORY SYSTEM Normal respiratory effort and able to speak in complete sentences. ?Clear to auscultation bilaterally. ?No crackles, rales, rhonchi, wheezes heard. CARDIAC SYSTEM Regular rate and rhythm. ?S1 and S2 heard no murmurs. 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 No deformities noted. ?No synovitis noted to the MCPs, PIPs or DIPs. ?No tenderness to palpation of these joints. Positive Heather's test bilaterally. Herbeden's nodes noted Wrists: ?Full range of motion at the wrists without pain. ?No tenderness to palpation or synovitis noted to the wrists. Tenderness to palpation of the 1st compartment tendons of the left hand. Elbows: Full range of motion without pain. No tenderness, weakness, swelling, increased warmth or erythema. Shoulders: Full range of motion without pain. No tenderness, weakness, swelling, increased warmth or erythema. Hips: Full range of motion without pain. Hip bursa: No tenderness to palpation Knees: ?Full range of motion. ?No tenderness, swelling, increased warmth or erythema.?No effusion or crepitations Ankles: Full range of motion. ?No tenderness, swelling, increased warmth or erythema.? Feet: ?Negative squeeze test. ?No tenderness to palpation or swelling of the MTPs. Tender points:?No tenderness to palpation of the bilateral trapezius, supraspinatus, greater trochanters, anterior costochondral junctions, bilateral gluteal areas, bilateral suboccipital muscle insertions SKIN Skin intact without rashes. Office Procedures AMB Joint Injection/Aspiration Joint Injection/Aspiration Details: Procedure was explained to the patient and consent was obtained. ? The area of interest was identified and confirmed with patient. ?This was subsequently cleaned with chlorhexidine x3. ? The area was then anesthetized using ethyl chloride spray. 20 mg Kenalog with 0.5 cc 1% lidocaine was injected without issue. ?Minimal to no bleeding. ?Patient tolerated procedure. Primary Site: other (Right 1st compartment of the wrist) Prep: site was prepped using aseptic technique and ethochloride spray was ap plied Injected: 20 mg of, Kenalog, with 0.5 mL of and 1% plain lidocaine Approach Used: other Procedure: The patient tolerated the procedure well Coding 80878 - Bicipital Groove Injection Procedure code (CPT) selection complete Office Meds lidocaine (PF) 10 mg/mL (1 %) injection solution Performing Provider: Kerry Londono MD [place]forming [place] [facility] Administered by: Kerry Londono MD on 12/01/24 14:09 Dose Route Admin Location Dispensed Lot Number Expiration Date [facility] Cell Tuber Machine 5 mg Infiltration 2 mL [id number] 02/15/27 67438-783-36 [facility] Kenalog 40 mg/mL suspension for injection Performing Provider: Kerry Londono MD Performing Location[place] [facility] Administered by: Kerry Londono MD on 12/01/24 14:09 Dose Route Admin Location Dispensed Lot Number Expiration Date [facility] Cell Tuber Machine 20 mg Tendon Sheath Inj. 1 mL [id number] 05/17/26 [address]-5 [employer] Results Reviewed Results Reviewed: DEXA 08/29/23 FINDINGS: LEFT FEMUR, NECK: Current: BMD 0.769 g/cm2, Z-score -0.2, T-score -1.9, osteopenia. Prior: BMD 0.869 g/cm2. Baseline: BMD 0.929 g/cm2. LEFT FEMUR, TOTAL: Current: BMD 0.810 g/cm2, Z-score -0.1, T-score -1.6, osteopenia, 6.1% decrease from previous, 14.0% decrease from baseline (<5% change is not significant). Prior: BMD 0.863 g/cm2. Baseline: BMD 0.942 g/cm2. AP SPINE L1-L2 (excluding L3 and L4): The data of L1-L4 has been changed to exclude the L3 and L4 vertebral bodies, because increased degenerative sclerosis at these levels may cause overestimation of lumbar spine density. Current: BMD 0.968 g/cm2, Z-score -0.2, T-score -1.6, osteopenia, 0.7% increase from previous, 6.5% decrease from baseline (<5% change is not significant). Prior: BMD 0.961 g/cm2. Baseline: BMD 1.035 g/cm2. Laboratory Tests 07/26/22 08/05/23 08/11/23 08:00 07:00 11:01 WBC 5.3 4.7 L RBC 4.30 4.10 L Hgb 13.3 12.8 Hct 38.8 37.7 Plt Count 202 185 ESR 11 Sodium Potassium Chloride Carbon Dioxide BUN Creatinine AST 19 ALT 10 Alkaline Phosphatase 27 L 25-OH Vitamin D Total 08/29/23 04/07/24 08/05/24 14:02 15:37 08:30 WBC 4.4 L RBC 3.93 L Hgb 12.3 Hct 36.0 L Plt Count 188 ESR 17 Sodium 143 143 144 Potassium 4.0 3.7 4.3 Chloride 106 109 H 109 H Carbon Dioxide 25 23 26 BUN 15 13 15 Creatinine 0.95 0.90 0.86 AST 18 24 ALT 12 19 Alkaline Phosphatase 29 L 33 L 25-OH Vitamin D Total 75.1 Assessment & Plan Assessment & Plan (1) De Quervain's disease (tenosynovitis): Code(s): M65.4 - Radial styloid tenosynovitis [de Quervain] Category: Medical Plan: #De Quervain's Tenosynovitis Exam consistent with tenosynovitis S/p steroid injection Plan - Splint - S/p injection - Has appt in April, can keep that appointment Plan I spent 20 minutes reviewing the record and labs, taking a history, examining the patient, discussing the treatment plan and documenting in the medical record Orders: Orders AMB Joint Injection/Aspiration Today M65.4 - Radial styloid tenosynovitis [de Quervain] Coding Level of Care Code Est Pt Level 3 (65473) Diagnoses De Quervain's disease (tenosynovitis) M65.4 CPT Codes Coding - Joint 1: 86032 - Bicipital Groove Injection ([id number])
[2024-12-01 10:20] VITALS: BP 112/64; PULSE 64; O2SAT 96; BMI 25.9
== END 2024-12-01 10:25 | disposition home or self-care (01) ==
PROVIDERS: PCP Internal Medicine; Visit Provider Student in an Organized Health Care Education/Training Program
DX: M65.4 Radial styloid tenosynovitis [de Quervain] (principal)
CPT/HCPCS: 20550; 99213

== ENCOUNTER → 2024-12-01 09:36 | Outpatient (BNVA) | payer MEDICARE, BC, SELFPAY | PROVIDERS: PCP Internal Medicine; Visit Provider Student in an Organized Health Care Education/Training Program | DX: M65.4 Radial styloid tenosynovitis [de Quervain] (principal); M81.0 Age-related osteoporosis without current pathological fracture; M35.3 Polymyalgia rheumatica | CPT/HCPCS: 20550; 99212; J2003; J3300 ==

== ENCOUNTER 2025-03-17 10:18 | Outpatient (AMB) | payer MEDICARE, BC, SELFPAY ==
[2025-03-17 10:34] VITALS: BP 124/74; PULSE 67; O2SAT 98; BMI 26.3
--- NOTE | 2025-03-17 10:34 | MHC.OFFVIS ---
Vital Signs 03/17/25 10:34 Height 5 ft 6 in Weight 163 lb 2.273 oz BMI 26.3 BP 124/74 Blood Pressure Location Lt brachial Position Sitting Pulse 67 Pulse Source Pulse Oximeter Pulse Oximetry (%) 98 Oxygen Delivery Method Room Air Intake Visit Reasons: Osteoporosis Intake Note: ?Patient presents for follow up on tenosynovitis today and cortisone injection. She was? last seen by Dr. Londono on 12/01/24. Allergies No Known Allergies Allergy (Verified 03/17/25 10:39) Medication List - Last Reconciled 03/17/25 by Kerry Londono MD acetaminophen ER (Tylenol Arthritis Pain) 1,300 mg PO Q12H PRN albuterol sulfate 90 mcg/actuation (Ventolin HFA) 2 puffs inhalation Q6H PRN aripiprazole (Abilify) 5 mg PO BEDTIME zobhnii-sgdlvbjfalexu-bubofiac 250-250-65 mg (Excedrin Extra Strength) 2 tabs PO Q6H PRN calcium carbonate-vitamin D3 600 mg-5 mcg (200 unit) 1 tab PO BID celecoxib (Celebrex) 200 mg PO BID lamotrigine 150 mg PO DAILY melatonin mg PO .evening sumatriptan succinate (Imitrex) 50 mg PO Q2-4H PRN therapeutic multivitamin 1 tab PO DAILY HPI Comments Details: Patient is a 74-year-old female with migraines, polymyalgia rheumatica, OA and osteopenia who presents today for follow-up. Interval History: Patient last seen 11/2024 with me. At that time she was here for an urgent complaining of pain to the base of her left thumb. The pain was consistent with de Quervain's tenosynovitis and she was given a steroid injection told to continue splinting Today she is here for follow up Steroid injection helped Still has some ache to the base of bilateral CMC joints Started an exercise program including weights No prolonged headaches but does have a history of migraines, no vision changes, no stiffness to bilateral shoulders or hips Rheumatologic History: Patient diagnosed with polymyalgia rheumatica 04/05/2017 after presenting with prolonged pain and stiffness in her shoulders and then found to have elevated inflammatory markers. Treated with prednisone until 02/03/2018 now on Celebrex b.i.d. since 05/06/2018 which she uses as needed. No recurrence of her symptoms of PMR. No evidence or symptoms of GCA. Alendronate since 2018 - 2024. Drug holiday Current Rheumatology Medication(s): Calcium and vitamin D Celebrex 200mg bid [facility] Medical History (Updated 03/17/25 @ 10:57 by Kerry Londono MD) De Quervain's disease (tenosynovitis) PMR (polymyalgia rheumatica) Surgical History Hx of eye surgery History of tonsillectomy Family History Maternal Aunt Colon cancer Social History Patient Tobacco Use Status: Never used Tobacco e-Cigarette/Vaping Use: Never Used Current occupational status: retired 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 Review of Systems Const Details: Review of Systems Constitutional: Denies fever, chills, weight loss ENT: Denies vision changes, eye pain or eye redness, dental caries, dry mouth GI: Denies nausea, vomiting, diarrhea, abdominal pain, change in BM Pulm: Denies SOB, BURGESS, hemoptysis, wheezing Cards: Denies chest pain, palpitations Skin: Denies Raynaud's, rash, nail changes, photosensitivity, BEHAVIOUR SUPPORT TEACHER: Denies headaches, weakness, paresthesias, recurrent falls MSK: as per HPI All other systems reviewed and are unremarkable except noted above Physical Exam Vital Signs: Last Vital Signs Pulse 67 03/17/25 10:34 BP 124/74 03/17/25 10:34 Pulse Ox 98 03/17/25 10:34 Oxygen Delivery Method Room Air 03/17/25 10:34 BMI result Body Mass Index 26.3 Vital signs reviewed Physical Examination CONSTITUITIONAL Patient alert and cooperative. Well appearing and in no apparent painful distress HEENT Conjunctiva and sclera clear. ?Pupils equal round and reactive to light. ?No lymphadenopathy. ? CHEST/RESPIRATORY SYSTEM Normal respiratory effort and able to speak in complete sentences. ?Clear to auscultation bilaterally. ?No crackles, rales, rhonchi, wheezes heard. CARDIAC SYSTEM Regular rate and rhythm. ?S1 and S2 heard no murmurs. ?Radial pulses intact bilaterally MSK Hands: ?Able to make a fist. No synovitis noted to the MCPs, PIPs or DIPs. ?No tenderness to palpation of these joints. Herbeden's nodes with ulnar deviation of the left 2nd DIP ? Wrists: ?Full range of motion at the wrists without pain. ?No tenderness to palpation or synovitis noted to the wrists. Elbows: Full range of motion without pain. No tenderness, weakness, swelling, increased warmth or erythema. Shoulders: Full range of active range of motion without pain. No tenderness, weakness, swelling, increased warmth or erythema. Knees: ?Full range of motion. ?No tenderness, swelling, increased warmth or erythema.?Crepitations bilaterally Ankles: Full range of motion. ?No tenderness, swelling, increased warmth or erythema.? Feet: ?Negative squeeze test. ?No tenderness to palpation or swelling of the MTPs. Tender points:?No tenderness to palpation of the bilateral trapezius, supraspinatus, greater trochanters, anterior costochondral junctions, bilateral gluteal areas, bilateral suboccipital muscle insertions SKIN Skin intact without rashes. Results Reviewed Results Reviewed: Laboratory Tests 08/11/23 08/29/23 04/07/24 11:01 14:02 15:37 WBC RBC Hgb Hct Plt Count ESR 17 C-Reactive Protein 0.28 25-OH Vitamin D Total 75.1 10/11/24 12:31 WBC 5.2 RBC 4.08 L Hgb 12.4 Hct 36.5 L Plt Count 193 ESR C-Reactive Protein 25-OH Vitamin D Total Assessment & Plan Assessment & Plan (1) Osteopenia: Comment: DEXA 07/2021: AP Spine L1-L2 -1.7, Left femur neck -1.2, Left femur total -1.1 DEXA 08/2023: AP Spine L1-L2 -1.6, Left femur neck -1.9, Left femur total -1.6 Alendronate 06/18/2019-11/2024. Drug Holiday Code(s): M85.80 - Other specified disorders of bone density and structure, unspecified site Category: Medical Qualifiers: Osteopenia location: multiple sites Qualified Code(s): M85.89 - Other specified disorders of bone density and structure, multiple sites Plan: #Osteopenia Patient is a 74-year-old female with osteopenia and an elevated FRAX. Currently on a drug holiday from alendronate after being on the medication for 5 years. Encouraged weight-bearing exercises and calcium and vitamin-D supplementation Plan - DEXA 08/2025 - Vitamin D and Calcium - Weight bearing exercises - Labs today: CBC, CMP, ESR, CRP, Vit D - RTC 6 months - Labs before visit: CBC, CMP, ESR, CRP, Vit D (2) Osteoarthritis of hands, bilateral: Code(s): M19.041 - Primary osteoarthritis, right hand; M19.042 - Primary osteoarthritis, left hand Category: Medical Qualifiers: Osteoarthritis type: primary Qualified Code(s): M19.041 - Primary osteoarthritis, right hand; M19.042 - Primary osteoarthritis, left hand Plan: #Bilateral Hand OA Patient with bilateral hand OA specifically involving the 1st CMC joint. Recommended Paraffin wax bath Topical diclofenac up to 4 times a day Celebrex 200 mg tablet twice a day Topical capsaicin patches (3) PMR (polymyalgia rheumatica): Comment: Diagnosed in 2017, completed steroid course in 2018. And in remission since then Code(s): M35.3 - Polymyalgia rheumatica Category: Medical Plan: #PMR Currently in remission No signs or symptoms concerning for GCA Informed of signs to look out for including temporal headache and vision changes. Plan I spent 20 minutes reviewing the record and labs, seeing the patient, discussing the treatment plan and documenting in the medical record ? Medications: Refilled celecoxib (Celebrex) 200 mg PO BID 180 caps 1RF M19.041 - Primary osteoarthritis, right hand, M19.042 - Primary osteoarthritis, left hand calcium carbonate-vitamin D3 600 mg-5 mcg (200 unit) 1 tab PO BID 180 tabs 1RF M85.89 - Other specified disorders of bone density and structure, multiple sites Coding Level of Care Code Est Pt Level 3 (08050) Complex EM visit Add On G2211 Diagnoses Osteopenia of multiple sites M85.89 Osteopenia location: multiple sites Primary osteoarthritis of both hands M19.041; M19.042 Osteoarthritis type: primary PMR (polymyalgia rheumatica) M35.3
--- OUTSIDE RECORDS SUMMARY | 2025-03-17 11:43 | XMS_ITS | Patient Health Record ---
Author Organization [facility] [place] Address [address] [facility] [place] [address] Care Team Providers Care Bridge Teacher Name Role Phone Kathryn DARNELL, Darryl Primary Care Provider Vandana Avelar Unavailable [phone] Allergies No Known Allergies Reason For Referral No Information Medications Medication SIG (Take, Route, Frequency, Duration) Notes Start Date End Date Status Docusate Sodium 100 MG 1 capsule as need ed Orally Once a day Active SUMAtriptan Active CeleBREX Active ARIPiprazole 5 MG 1 tablet Orally Once a day Active lamoTRIgine 150 MG 1 tablet Orally Once a day Active Alendronate Sodium 70 MG 1 tablet 30 min utes before the first food, beverage or medicine of the day with plain water Orally Not-Taking Multi Vitamin - 1 tablet Orally Once a day Active Calcium 600 MG 1 tablet with meals Orally Twice a day Active Vitamin D3 Active Melatonin 12 MG 1 tablet on the tong ue and allow to dissolve at bedtime as needed Orally Once a day Active Social History Tobacco Use: Social History Observation Description Date Details (start date - stop date) Never Smoker NA - NA Tobacco Use/Smoking Question Answer Notes Are you a: nonsmoker Alcohol Screen Question Answer Notes Did you have a drink containing alcohol in the p ast year? No Points 0 Interpretation Negative Tobacco use other than smoking: Question Answer Notes Are you an other tobacco user? No Vital Signs Blood pressure diastolic 60 mm Hg 10/12/2024 Height 5ft 5in in 10/12/2024 Blood pressure systolic 110 mm Hg 10/12/2024 Weight 156 lbs 10/12/2024 BMI 25.96 kg/m2 10/12/2024 Encounters Encounter Location Date Provider Diagnosis [facility] [place] [address] [place] [address] 10/12/2024 Vandana Walter Pain in right toe(s) M79.674 ; Onychomycosis B35.1 and Pain in left toe(s) M79.675 [facility] [address] [place] [address] 06/23/2024 Vandana Perica [facility] [place] [address] [place] [address] 10/12/2024 Vandana Perica [facility] [address] [address] 11/22/2024 Vandana Perica [facility] [address] [address] 01/13/2025 Vandana Walter Assessments Encounter Date Diagnosis (ICD Code) Assessment Notes Treatment Notes Treatment Clinical Notes Section Notes 10/12/2024 Pain in right toe(s) (ICD-10 - M79.674) 10/12/2024 Onychomycosis (ICD-10 - B35.1) 10/12/2024 Pain in left toe(s) (ICD-10 - M79.675) Plan Of Treatment Next Appt Details Provider Name:Vandana momin, 04/12/2025 10:00:00 AM, [address] [place] [address], [phone], Insurance Providers Payer Name Payer Address Payer Phone Subscriber Number Group Number Insured Name Patient Relationship to Insured Coverage Start Date Coverage End Date Medicare National [employer] [address] [facility] [address] [id number] Riri Daniels Self - patient is the insured [address] [place] [address] [address] [place] [address] [id number] Riri Daniels Self - patient is the insured Medical (General) History Medical History History ICD Code Arthritis asthma Cataracts Depression Headaches/Migraines Mumps Chicken pox Measles Surgical History Surgery Date(Month/Year) appendectomy 1950 tonsillectomy 1955
--- OUTSIDE RECORDS SUMMARY | 2025-03-17 11:43 | XMS_ITS ---
Author Organization [facility] Address [address] [place] [address] Care Team Providers Care Mate Fourth Name Role Phone Darryl Peralta MD Primary Care Provider Vandana Avelar [phone] REASON FOR VISIT Buy formula 7 Encounters Encounter Location Date Provider Diagnosis [address] [address] 01/13/2025 Vandana Walter Plan Of Treatment Next Appt Details Provider Name:Vandana momin, 04/12/2025 10:00:00 AM, [address] [place], [address], Progress Notes * Trudy CHAPMANireDOB: (74 yo F)Acc No.[id number]:01/13/2025 Patient:?Riri CHAPMAN :1950???Age:74 Y???Sex:Female Address: [address] [facility] [place] [address] * true * Date:? Generated for Caesar godoy/Isabel/eTransmitting on:?03/17/2025 11:42 AM EDT
--- OUTSIDE RECORDS SUMMARY | 2025-03-17 11:43 | XMS_ITS ---
Author Organization [facility] Address [address] [place] [address] Care Team Providers Care Heavy Equipment Operator Name Role Phone Darryl Peralta MD Primary Care Provider Vandana Avelar [phone] REASON FOR VISIT bought Form #7 Encounters Encounter Location Date Provider Diagnosis [facility] [address] [place] [address] 10/12/2024 Vandana Walter Plan Of Treatment Next Appt Details Provider Name:Vandana momin, 04/12/2025 10:00:00 AM, [address] [place], [address], Progress Notes * Trudy CHAPMANireDOB: [birth year] (74 yo F)Acc No.[id number]:10/12/2024 Patient:?Riri CHAPMAN :1950???Age:74 Y???Sex:Female Address: [address] [place] [address] * true * Date:? Generated for Isabeli walt/Isabel/eTransmitting on:?03/17/2025 11:43 AM EDT
--- OUTSIDE RECORDS SUMMARY | 2025-03-17 11:43 | XMS_ITS ---
Author Organization [facility] Address [address] [facility] [place] [address] Care Team Providers Care Kiss Mixer Name Role Phone Darryl Peralta MD Primary Care Provider Vandana Avelar [phone] REASON FOR VISIT BUY Formula 7 Encounters Encounter Location Date Provider Diagnosis [facility] [address] [place] [address] 11/22/2024 Vandana Walter Plan Of Treatment Next Appt Details Provider Name:Vandana momin, 04/12/2025 10:00:00 AM, [address] [place], [address], Progress Notes * Trudy CHAPMANireDOB: 9 (74 yo F)Acc No.[id number]:11/22/2024 Patient:?ADELA Riri :1950???Age:74 Y???Sex:Female Address: [address] [place] [address] * true * Date:? Generated for Caesar godoy/Isabel/eTransmitting on:?03/17/2025 11:42 AM EDT
== END 2025-03-17 10:57 | disposition home or self-care (01) ==
LOC: HO.RHE 10:18
PROVIDERS: PCP Internal Medicine; Visit Provider Student in an Organized Health Care Education/Training Program
DX: M85.89 Other specified disorders of bone density and structure, multiple sites (principal); M19.041 Primary osteoarthritis, right hand; M19.042 Primary osteoarthritis, left hand; M35.3 Polymyalgia rheumatica
CPT/HCPCS: 99213; G2211

== ENCOUNTER → 2025-03-17 10:18 | Outpatient (BNVA) | payer MEDICARE, BC, SELFPAY | PROVIDERS: PCP Internal Medicine; Visit Provider Student in an Organized Health Care Education/Training Program | DX: Z13.89 Encounter for screening for other disorder (principal) | CPT/HCPCS: 99212 ==

== ENCOUNTER 2025-03-17 11:16 | Outpatient (REF) | payer MEDICARE, BC, SELFPAY ==
[2025-03-17 14:03] LABS: MANUAL DIFF FLAG NO
[2025-03-17 14:18] LABS: Basophils Absolute Auto 0.1 X10*3/uL (0.0-0.2); Basophils Percent Auto 1.2 % (0-2); Eosinophils Absolute Auto 0.1 X10*3/uL (0.0-0.4); Hematocrit 36.7 % (37.0-47.0); Hemoglobin 12.1 g/dl (12.0-16.0); Imm Gran Abs Auto 0.03 X10*3/uL (0.00-0.03); Imm Gran Pct Auto 0.6 % (0.0-0.4); Lymphocytes Absolute Auto 1.7 X10*3/uL (1.2-4.9); Lymphocytes Percent Auto 33.9 % (20-40); Mean Corpuscular Hemoglobin 29.8 pg (27.0-33.0); Mean Corpuscular Volume 90.4 fL (80.0-98.0); Mean Platelet Volume 9.4 fL (9.4-12.3); Monocytes Absolute Auto 0.3 X10*3/uL (0.1-1.2); Monocytes Percent Auto 6.2 % (2-11); Neutrophils Absolute Auto 2.8 x10*3/uL (2.0-8.3); Neutrophils Percent Auto 56.1 % (45-73); Platelet Count 226 X10*3/uL (160-400); Red Blood Count 4.06 X10*6/uL (4.20-5.50); Red Cell Distribution Width 13.1 % (11.0-16.0)
[2025-03-17 14:32] LABS: Alanine Aminotransferase 20 U/L (0-31); Albumin Level 4.1 g/dL (3.5-5.0); Alkaline Phosphatase 44 U/L (39-117); Anion Gap 11 (12-20); Aspartate Amino Transferase 24 U/L (5-31); Bilirubin Total 0.8 mg/dL (0.0-1.0); Blood Urea Nitrogen 15 mg/dL (9-16); C Reactive Protein 0.76 mg/dL (< or = 0.50); Calcium 9.4 mg/dL (8.4-10.2); Carbon Dioxide 28 mmol/L (22-29); Chloride 107 mmol/L (96-108); Estimated Glomerular Filt Rate 58; Glucose Random 83 mg/dL (60-115); Potassium 4.2 mmol/L (3.3-5.1); Sodium 142 mmol/L (135-145)
[2025-03-17 14:51] LABS: Erythrocyte Sedimentation Rate 30 MM/HR (0-20)
[2025-03-21 15:44] LABS: Vitamin D 25-OH, D2 <4 ng/mL; Vitamin D 25-OH, D3 51 ng/mL; Vitamin D 25-OH, Total 51 ng/mL (30-100)
== END 2025-03-17 11:17 | disposition home or self-care (01) ==
LOC: HO.10HDL 11:16
PROVIDERS: Visit Provider Student in an Organized Health Care Education/Training Program
DX: M85.89 Other specified disorders of bone density and structure, multiple sites (principal); M35.3 Polymyalgia rheumatica; E55.9 Vitamin D deficiency, unspecified
CPT/HCPCS: 36415; 80053; 82306; 85025; 85652; 86140; 99212

== ENCOUNTER 2025-05-26 12:48 | Outpatient (AMB) | payer MEDICARE, BC, SELFPAY ==
--- OUTSIDE RECORDS SUMMARY | 2024-08-05 04:30 | XMS_ITS ---
Author Organization Darryl Peralta MD Address [address] [place], [place] [phone] Care Team Providers Care Bean Snipper Name Role Phone Darryl Peralta Primary Care Provider [phone] Results Component Value Reference Range Notes Complete Blood Count Auto Di ff Reviewed date:08/05/2024 12:15:24 PM Interpretation: Performing Lab:[facility], [address] [place] [phone] Notes/Report: White Blood Count 4.4 4.8-10.8 X10*3/uL [...] NRBC Abs Auto 0.000 0.0-0.012 X10*3/uL Comprehensive [place]. Panel Fa Reviewed date:08/05/2024 12:53:24 PM Interpretation: Performing Lab:[address] [phone] Notes/Report: Sodium 144 135-145 mmol/L Potassium 4.3 3.3-5.1 mmol/L Chloride 109 96-108 mmol/L Carbon Dioxide 26 22-29 mmol/L Anion Gap 13 12-20 Blood Urea Nitrogen 15 9-16 mg/dL Creatinine 0.86 0.5-1.4 mg/dL Estimated Glomerular Filt Rate > 60 NOTE: For -[place]alan individuals, multiply the result by 1.210. Chronic [...] Panel Reviewed date:08/05/2024 12:33:35 PM Interpretation: Performing Lab:[facility], [address] [place] [phone] Notes/Report: Triglycerides 91 <150 mg/dL Desirable Triglyceride: [...] t Reviewed date:08/05/2024 03:09:28 PM Interpretation: Performing Lab:[facility], [address] [place] [phone] Notes/Report: Urine, Clean Catch Color Urine Yellow Appearance Urine Clear PH 5.5 5.0-9.0 Glucose Urine UA Negative Negative mg/dL Urine Blood Negative Negative Specific [place] - Urine 1.010 1.005-1.025 Urine Protein Negative [...] Location Date Provider Diagnosis Darryl Peralta MD [address] [place] [phone] 08/05/2024 Darryl Peralta Lymphocytosis D72.82 0 Assessments Encounter Date Diagnosis (ICD Code) Assessment Notes Treatment Notes Treatment Clinical Notes Section Notes 08/05/2024 Lymphocytosis (ICD-10 - D72.820) Plan Of Treatment Next Appt Details Provider Name:Darryl bahena, 08/09/2025 07:15:00 AM, [address] [place] [address], [address], [phone], Provider Name:Darryl bahena, 08/16/2025 08:30:00 AM, [address] [place] [address], [address], [phone], Progress Notes * CHAPMAN, Riri MDOB: [birth year] (75 yo F)Acc No.[id number]:08/05/2024 Progress Note Patient: Riri BUTLER Provider: Lanre Peralta MD :1950 A ge:74 Y S ex:Female Date:08/05/2024 Address:[address] [place], [place] [phone] Subjective: * Chief Complaints: * 1 . [...] MD Date: 0 08/05/2024 Generated for Caesar godoy/Isabel/Angelasmitting on: 0 05/26/2025 12:50 PM EDT
--- OUTSIDE RECORDS SUMMARY | 2025-05-26 12:51 | XMS_ITS | Patient Health Record ---
Author Organization [facility] Address [address] [facility] [place] [address] Care Team Providers Care Rn Care Manager Name Role Phone Kathryn DARNELL, Darryl Primary Care Provider Vandana Avelar Unavailable [phone] Allergies No Known Allergies Reason For Referral No Information Medications Medication SIG (Take, Route, Frequency, Duration) Notes Start Date End Date Status Alendronate Sodium 70 MG 1 tablet 30 min utes before the first food, beverage or medicine of the day with plain water Orally Not-Taking SUMAtriptan Active CeleBREX Active Melatonin 12 MG 1 tablet on the tong ue and allow to dissolve at bedtime as needed Orally Once a day Active Docusate Sodium 100 MG 1 capsule as need ed Orally Once a day Active Calcium 600 MG 1 tablet with meals Orally Twice a day Active Vitamin D3 Active lamoTRIgine 150 MG 1 tablet Orally Once a day Active Multi Vitamin - 1 tablet Orally Once a day Active ARIPiprazole 5 MG 1 tablet Orally Once a day Active Social History [...] Are you an other tobacco user? No Problems Problem Type SNOMED Code ICD Code Onset Dates Problem Status W/U Status Risk Notes Problem Plantar wart (61896181) Plantar wart (B07.0) Active confirmed Vital Signs Blood pressure diastolic 60 mm Hg 04/12/2025 Height 5ft5in in 04/12/2025 Blood pressure systolic 110 mm Hg 04/12/2025 Weight 160 lbs 04/12/2025 BMI 26.62 kg/m2 04/12/2025 Encounters Encounter Location Date Provider Diagnosis [address] [address] 10/12/2024 Vandana Perica Pain in right toe(s) M79.674 ; Onychomycosis B35.1 and Pain in left toe(s) M79.[address] [address] 04/12/2025 Vandana Perica Onychomycosis B35.1 ; Right foot pain M79.671 and Plantar wart B07.[address] [address] 06/23/2024 Vandana Perica [address] [address] 10/12/20[facility] [address] 11/22/2024 Vandana Perica [address] [address] 01/13/2025 Vandana Isaaca Assessments Encounter Date Diagnosis (ICD Code) Assessment Notes Treatment Notes Treatment Clinical Notes Section Notes 10/12/2024 Pain in right toe(s) (ICD-10 - M79.674) 04/12/2025 Right foot pain (ICD-10 - M79.671) 04/12/2025 Onychomycosis (ICD-10 - B35.1) 10/12/2024 Onychomycosis (ICD-10 - B35.1) 04/12/2025 Plantar wart (ICD-10 - B07.0) 10/12/2024 Pain in left toe(s) (ICD-10 - M79.675) Plan Of Treatment No Information Insurance Providers Payer Name Payer Address Payer Phone Subscriber Number Group Number Insured Name Patient Relationship to Insured Coverage Start Date Coverage End Date Medicare National Gov[employer] Sv[employer] [address] [facility] [place] [address] [phone] [place], [place] [id number] Riri Daniels Self - patient is the insured [address] [facility] [address] [place] [address] [id number] Riri Daniels Self - patient is the insured Medical (General) History Medical History History ICD Code Arthritis asthma Cataracts Depression Headaches/Migraines Mumps Chicken pox Measles Surgical History Surgery Date(Month/Year) appendectomy 1950 tonsillectomy 1955
--- OUTSIDE RECORDS SUMMARY | 2025-05-26 12:51 | XMS_ITS | Patient Health Record ---
Author Organization [facility] Address [address] [place] [address] Care Team Providers Care Show Host Or Hostess Name Role Phone Darryl Peralta MD Primary Care Provider Liu Vail Jr Sha Unavailable Reason For Referral No Information Medications Medication SIG (Take, Route, Fr equency, Duration) Notes Start Date End Date Status Meloxicam 50 mg Acti ve Metamucil 30.9 % as directed Orally 08/04/201311/2024 Active Gabapentin 300 mg Ac tive lamoTRIgine 150 mg A ctive Imitrex 50-100 mg Ac tive Abilify 2.5 mg Activ e Multivitamins Active Melatonin 5mg Active Calcium + D Active Colace 1 cap twice a day Activ e traMADol HCl 50 mg A ctive MoviPrep 100 GM as directed before c olonoscopy Orally for 1 dose 08/04/2013 11/17/2024 Active Problems Problem Type SNOMED Code ICD Code Onset Dates Problem Status W/U Status Risk Notes Problem Constipation (31553365) Constipation (564.00) Active confirmed Problem Colon cancer screening (V76.51) Active confirmed Plan Of Treatment Future Test Test Name Order Date COLONOSCOPY 08/04/2013 Insurance Providers Payer Name Payer Address Payer Phone Subscriber Number Group Number Insured Name Patient Relationship to Insured Coverage Start Date Coverage End Date [facility] [address] [place], [place] [id number] SHELIA CHAPMAN Self - patient is the insured Medical (General) History Medical History History ICD Code Denies UT,DM,CVA,Lung disease,renal dise ase Surgical History Surgery Date(Month/Year) tonsillectomy 1955 appendectomy 1950 dilatation and curettage
--- NOTE | 2025-05-26 13:29 | MHC.OFFVIS ---
Intake Visit Reasons: 6M MIGRAINE Allergies No Known Allergies Allergy (Verified 05/26/25 13:32) Medication List - Last Reconciled 05/26/25 by Kenya Cadena CNP acetaminophen ER (Tylenol Arthritis Pain) 1,300 mg PO Q12H PRN albuterol sulfate 90 mcg/actuation (Ventolin HFA) 2 puffs inhalation Q6H PRN aripiprazole (Abilify) 2.5 mg PO BEDTIME bpxrrhe-ergnfjydupeke-niyplyte 250-250-65 mg (Excedrin Extra Strength) 2 tabs PO Q6H PRN calcium carbonate-vitamin D3 600 mg-5 mcg (200 unit) 1 tab PO BID celecoxib (Celebrex) 200 mg PO BID docusate sodium (Colace) 100 mg PO DAILY lamotrigine 150 mg PO DAILY lifitegrast 5% (Xiidra) 1 drp ophthalmic (eye) BID melatonin mg PO .evening sumatriptan succinate (Imitrex) 50 mg PO Q2-4H PRN therapeutic multivitamin 1 tab PO DAILY HPI Comments Details: 75 yo woman with chronic intractable headaches not responsive to meds. She was doing okay. Headaches have been okay. Gets about 1-2 headaches/week on average. Sumatriptan as needed helps. She was also occasionally using Excedrin which helped if she took it early enough. Triggers include changes in weather and missing meals. Sleep was okay. [facility] Medical History (Updated 05/26/25 @ 13:31 by Kenya Cadena CNP) Asthma Migraine without aura Chronic tension type headache Arthritis Bipolar disorder De Quervain's disease (tenosynovitis) PMR (polymyalgia rheumatica) Surgical History Hx of eye surgery History of tonsillectomy Family History (Updated 05/26/25 @ 11:49 by Yamilet Marcelino MA) Maternal Aunt Colon cancer Daughter Headache Son Headache Social History Patient Tobacco Use Status: Never used Tobacco e-Cigarette/Vaping Use: Never Used Current occupational status: retired 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 Review of Systems Const Denies chills, Denies daytime sleepiness, Denies difficulty sleeping, Denies fatigue, Denies fever(s), Denies frequent falls, Reports headache(s), Denies increased appetite, Denies poor appetite, Denies snoring, Denies weakness, Denies weight gain and Denies weight loss Eyes Denies loss of vision ENT Denies vertigo, Denies dizziness and Reports headache(s) Card Denies chest pain at rest, Denies chest pain with activity, Denies leg edema and Denies palpitations Resp Denies snoring GI Denies constipation, Denies heartburn, Denies diarrhea and Denies nausea Denies urinary frequency, Denies urinary incontinence and Denies urinary urgency Musc Denies abnormal gait, Denies numbness and Denies tingling Skin/Breast Denies dry skin and Denies rash Neuro Denies abnormal gait, Denies vertigo, Denies dizziness, Denies frequent falls, Reports headache(s), Denies lack of coordination, Denies loss of vision, Denies memory loss, Denies numbness, Denies restless legs, Denies seizure-like activity, Denies tingling, Denies paresthesias, Denies tremor(s) and Denies weakness Psych Denies anxiety, Denies depression, Denies auditory hallucinations, Denies memory loss, Denies visual hallucinations and Denies suicidal ideation Endo Denies fatigue and Denies palpitations Physical Exam Const Other: General Appearance:? normal, in no acute distress. Skin:? no rashes, no significant birthmarks. Heart:? S1, S2 normal, no murmurs. Lungs:? clear anteriorly and posteriorly. Extremities:? no edema. Psych:? alert, oriented, cognitive function intact, cooperative with exam. Neuro Other: Mental Status:?Normal attention, orientation, memory and affect.? Cranial Nerves:?Pupils are equal, round and reactive to light. External occular muscles are intact. Visual hilliard are full. Face is symmetrical. Facial sensations are normal. Tongue is midline. Palate elevates symmetrically. Shoulder shrugging is normal. Hearing to bedside conversation is normal. Motor Examination:?Normal muscle tone, bulk and strength,?Deep tendon reflexes are 2+,?Plantars are flexor.? Sensory Exam:?....? Coordination:?No ataxia,?no titubation.? Gait Exam: Within normal limits. Cerebellar Signs:?Iderdw-ki-pivb and qugj-da-hjut is normal.? Extrapyramidal System:?No tremor, rigidity with normal facial expressions.? Pronator Drift:?Not present.? Involuntary Movements:?No tremors seen.? Speech:?Normal.? Assessment & Plan Assessment & Plan (1) Migraine without aura: Code(s): G43.009 - Migraine without aura, not intractable, without status migrainosus Category: Medical Qualifiers: Status migrainosus presence: without status migrainosus Intractability: not intractable Qualified Code(s): G43.009 - Migraine without aura, not intractable, without status migrainosus Plan: Continue sumatriptan 50mg 1 tablet as needed for migraine. Plan Meds tried: Topiramate, gabapentin, propranolol, depakote, emgality Coding Level of Care Code Est Pt Level 3 (45839) Diagnoses Migraine without aura and without status migrainosus, not intractable G43.009 Status migrainosus presence: without status migrainosus Intractability: not intractable
== END 2025-05-26 13:42 | disposition home or self-care (01) ==
LOC: HO.HSM 12:48
PROVIDERS: PCP Internal Medicine; Referring Provider Internal Medicine; Visit Provider Registered Nurse
DX: G43.009 Migraine without aura, not intractable, without status migrainosus (principal)
CPT/HCPCS: 99213

== ENCOUNTER → 2025-05-26 12:48 | Outpatient (BNVA) | payer MEDICARE, BC, SELFPAY | PROVIDERS: PCP Internal Medicine; Referring Provider Internal Medicine; Visit Provider Registered Nurse | DX: G43.009 Migraine without aura, not intractable, without status migrainosus (principal) | CPT/HCPCS: 99212 ==

== ENCOUNTER 2025-08-09 11:13 | Outpatient (REF) | payer MEDICARE, BC, SELFPAY ==
--- OUTSIDE RECORDS SUMMARY | 2024-08-05 04:30 | XMS_ITS ---
Author Organization Darryl Peralta MD Address [address] [place], [place] [phone] Care Team Providers Care Senior Benefits Specialist Name Role Phone Darryl Peralta Primary Care Provider Results Component Value Reference Range Notes Complete Blood Count Auto Di ff Reviewed date:08/05/2024 12:15:24 PM Interpretation: Performing Lab:[facility], [address] [place] [phone] Notes/Report: White Blood Count 4.4 4.8-10.8 X10*3/uL [...] NRBC Abs Auto 0.000 0.0-0.012 X10*3/uL Comprehensive [place]. Panel Fa Reviewed date:08/05/2024 12:53:24 PM Interpretation: Performing Lab:[address] [phone] Notes/Report: Sodium 144 135-145 mmol/L Potassium 4.3 3.3-5.1 mmol/L Chloride 109 96-108 mmol/L Carbon Dioxide 26 22-29 mmol/L Anion Gap 13 12-20 Blood Urea Nitrogen 15 9-16 mg/dL Creatinine 0.86 0.5-1.4 mg/dL Estimated Glomerular Filt Rate > 60 NOTE: For -Georgian individuals, multiply the result by 1.210. Chronic [...] Panel Reviewed date:08/05/2024 12:33:35 PM Interpretation: Performing Lab:[facility], [address] [place] [phone] Notes/Report: Triglycerides 91 <150 mg/dL Desirable Triglyceride: [...] t Reviewed date:08/05/2024 03:09:28 PM Interpretation: Performing Lab:[facility], [address] [place] [phone] Notes/Report: Urine, Clean Catch Color Urine Yellow Appearance Urine Clear PH 5.5 5.0-9.0 Glucose Urine UA Negative Negative mg/dL Urine Blood Negative Negative Specific [place] - Urine 1.010 1.005-1.025 Urine Protein Negative [...] Location Date Provider Diagnosis Darryl Peralta MD [address] [place] [address] [place] [phone] 08/05/2024 Darryl Peralta Lymphocytosis D72.82 0 Assessments Encounter Date Diagnosis (ICD Code) Assessment Notes Treatment Notes Treatment Clinical Notes Section Notes 08/05/2024 Lymphocytosis (ICD-10 - D72.820) Plan Of Treatment Next Appt Details Provider Name:Darryl bahena, 08/16/2025 08:30:00 AM, [address] [place] [address], [address] [facility], [place], [place], [phone], Progress Notes * Riri CHAPMAN MDOB: [birth year] (75 yo F)Acc No.[id number]:08/05/2024 Progress Note Patient: Riri BUTLER Provider: Lanre Peralta MD :1950 A ge:74 Y S ex:Female Date:08/05/2024 Address:[address] [place] [address] Sukhwinder xu Nicole [id number] Subjective: * Chief Complaints: * 1 . [...] Pending * Provider: Lanre Peralta MD Date: 08/05/2024 Generated for Caesar godoy/Isabel/Oliviaitting on: 0 08/09/2025 02:03 PM EDT
--- OUTSIDE RECORDS SUMMARY | 2024-08-12 04:30 | XMS_ITS ---
Author Organization Darryl Peralta MD Address [address] [place], [place] [phone] Care Team Providers Care Remote Sensing Surveyor Name Role Phone Darryl Peralta Primary Care Provider [phone] Allergies No Known Allergies REASON FOR [...] Problem Status W/U Status Risk Notes Problem [id number] Neutropenia, unspecified type (D70.9) Active confirmed Vital Signs Blood pressure systolic 116 mm Hg 08/12/20 24 Blood pressure diastolic 62 mm Hg 024 Height 66 in 08/12/2024 Weight 160 lbs 08/12/2024 BMI 25.82 kg/m2 08/12/2024 weight is down 6 pounds formerly [facility] 08-11-23 Encounters Encounter Location Date Provider Diagnosis Darryl Peralta MD [address] [place] [address] Drive [address] [place], [place] [phone] 08/12/2024 Darryl Peralta Neutropenia, unspecified type D70.9 [...] Up: 1 Year, Reason: Provider Name:Darryl bahena, 08/16/2025 08:30:00 AM, [address] [place] [address] Drive, [address], [place], [place], [id number], Progress Notes * Riri CHAPMAN MDOB: [birth year] (74 yo F)Acc No.[id number]:08/12/2024 Patient: Riri Morley Provider: Lanre Peralta MD :1950 A ge:74 Y S ex:Female Date:08/12/2024 Address:[address] [place] [address] [id number] Subjective: * Chief Complaints: * R eview [...] T obacco Use: T obacco Use/Smoking P danette is a n onsmoker, A dditional Findings: [...] 1 cat. no Travel outside of the [place]. * Medications: T akingARIPiprazole 5 MG [...] Auto 0.000 0.0-0.012 - X10*3/uL L ab:Comprehensive [place]. Panel Fast (Order Date - 08/05/2024) (Collection [...] mg/dL Urine Blood Negative Negative - Specific [place] - Urine 1.010 1.005-1.025 - Urine Protein [...] 0 08/12/2024 Generated for Caesar godoy/Isabel/Oliviaitting on: 0 08/09/2025 02:04 PM EDT History and Physical Notes * [...]
--- OUTSIDE RECORDS SUMMARY | 2024-10-12 04:15 | XMS_ITS ---
Author Organization Darryl Peralta MD Address [address] [place] [address] [phone] Care Team Providers Care Cooler Deliverer Name Role Phone Darryl Peralta Primary Care Provider REASON FOR VISIT CBC AUTO DIFF Encounters Encounter Location Date Provider Diagnosis Darryl Peralta MD [address] [facility] [address] [place] [phone] 10/12/2024 Darryl Peralta Neutropenia, unspecified type D70.9 Assessments Encounter Date Diagnosis (ICD Code) Assessment Notes Treatment Notes Treatment Clinical Notes Section Notes 10/12/2024 Neutropenia, unspecified type (ICD-10 - D70.9) Plan Of Treatment Next Appt Details Provider Name:Darryl Starks ier, 08/16/2025 08:30:00 AM, [address] [facility], Suite [facility], [place], [place], [phone], Progress Notes * Riri CHAPMAN MDOB: [birth year] (75 yo F)Acc No.[id number]:10/12/2024 Progress Note Patient: Tabatha WALKERRiri Norris Provider: Lanre Peralta MD :1950 A ge:74 Y S ex:Female Date:10/12/2024 Address:[address] [place] [address] [place] Subjective: * Chief Complaints: * 1 . [...] Peralta MD Date: 12/12/2023 Generated for Caesar godoy/Isabel/Migdalia on: 0 08/09/2025 02:04 PM EDT
--- OUTSIDE RECORDS SUMMARY | 2025-08-09 03:15 | XMS_ITS ---
Author Organization Darryl Peralta MD Address [address] [place], [place] [phone] Care Team Providers Care Mac Artist Name Role Phone Darryl Peralta Primary Care Provider Results Component Value Reference Range Notes UA ClnCatch+Micro w/rflx Cul t (Not yet reviewed by provider) Interpretation: Performing Lab:[facility], [address] [place] [phone] Notes/Report: Urine, Clean Catch Color Urine Yellow Appearance Urine Clear PH 5.5 5.0-9.0 Glucose Urine UA Negative Negative mg/dL Urine Blood Negative Negative Specific [place] - Urine 1.010 1.005-1.025 Urine Protein Negative Neg-Trace mg/dL Urine Ketones Negative Negative mg/dL Nitrite Urine Negative Negative Leukocyte Esterase Urine Negative Negative RBC Urine 0-2 0-2 /HPF WBC Urine 0-5 0-5 /HPF Squamous Epithelial Cell Urine 0-2 0-2 /HPF Bacteria Urine None Seen None Seen Hyaline Casts Urine 0-2 0-2 /LPF Complete Blood Count Auto Di ff Reviewed date:08/09/2025 12:25:35 PM Interpretation: Performing Lab:[facility], [address] [place] [phone] Notes/Report: White Blood Count 5.2 4.8-10.8 X10*3/uL [...] Panel Reviewed date:08/09/2025 12:29:27 PM Interpretation: Performing Lab:[facility], [address] [place] [phone] Notes/Report: Triglycerides 61 <150 mg/dL Desirable Triglyceride: [...] low results in patients with liver disease. REASON FOR VISIT FASTING LABS Immunizations Vaccine Route Administration Date Status Comme nts Influenza High Dose IM Intramuscular 08/09/2025 Administer ed Encounters Encounter Location Date Provider Diagnosis Darryl Peralta MD [address] [place] [address] [address] [place], [place] [phone] 08/09/2025 Darryl Peralta Lymphocytosis D72.82 0 and Encounter for administration of vaccine Z23 Assessments Encounter Date Diagnosis (ICD Code) Assessment Notes Treatment Notes Treatment Clinical Notes Section Notes 08/09/2025 Lymphocytosis (ICD-10 - D72.820) 08/09/2025 Encounter for administration of vaccine (ICD-10 - Z23) Plan Of Treatment Pending Test Test Name Order Date Comprehensive [place]. Panel Fast UA ClnCatch+Micro w/rflx Cult 08/09/2025 Next Appt Details Provider Name:Darryl Starks ier, 08/16/2025 08:30:00 AM, [address] [place] [address], [address], [place], [place], [phone], Progress Notes * Riri CHAPMAN MDOB: [birth year] (75 yo F)Acc No.[id number]:08/09/2025 Progress Note Patient: Riri BUTLER Provider: Lanre Peralta MD :1950 A ge:75 Y S ex:Female Date:08/09/2025 Address:[address] [place], [place] [phone] Subjective: * Chief Complaints: * 1 . [...] 0662 FLU VACC PRSV FREE INC ANTIG, 03867 VENIPUNCT, ROUTINE*, G0008 ADMN FLU VAC NO FEE SCHED SAME DAY * * The named appointment provid er may or may not be the originator of this progress note, and it is not deemed complete until electronically signed by the appointment provider. Sign off status: Pending * Provider: Lanre Peralta MD Date: 08/09/2025 Generated for Caesar godoy/Isabel/Migdalia on: 08/09/2025 02:04 PM EDT
[2025-08-09 11:16] LABS: MANUAL DIFF FLAG NO
[2025-08-09 11:27] LABS: Appearance Urine Clear; Glucose Urine UA Negative (Negative); PH 5.5 (5.0-9.0); Specific Gravity - Urine 1.010 (1.005-1.025)
[2025-08-09 11:31] LABS: Hematocrit 35.7 % (37.0-47.0); Hemoglobin 12.0 g/dl (12.0-16.0); Imm Gran Abs Auto 0.01 X10*3/uL (0.00-0.03); Imm Gran Pct Auto 0.2 % (0.0-0.4); Lymphocytes Absolute Auto 2.3 X10*3/uL (1.2-4.9); Mean Corpuscular HGB Conc 33.6 g/dl (31.0-35.0); Mean Corpuscular Hemoglobin 29.8 pg (27.0-33.0); Mean Corpuscular Volume 88.6 fL (80.0-98.0); NRBC Abs Auto 0.000 X10*3/uL (0.0-0.012); NRBC Pct Auto 0.0 /100WBC (0.0-0.2); Platelet Count 232 X10*3/uL (160-400); Red Blood Count 4.03 X10*6/uL (4.20-5.50); White Blood Count 5.2 X10*3/uL (4.8-10.8)
[2025-08-09 12:26] LABS: Alanine Aminotransferase 23 U/L (0-31); Albumin Level 4.0 g/dL (3.5-5.0); Alkaline Phosphatase 47 U/L (39-117); Anion Gap 12 (12-20); Aspartate Amino Transferase 33 U/L (5-31); Blood Urea Nitrogen 22 mg/dL (9-16); Calcium 9.6 mg/dL (8.4-10.2); Carbon Dioxide 25 mmol/L (22-29); Chloride 109 mmol/L (96-108); Cholesterol 180 mg/dL (<200); Estimated Glomerular Filt Rate 52; HDL Cholesterol 48 mg/dL (>40); Potassium 4.4 mmol/L (3.3-5.1); Sodium 142 mmol/L (135-145); Total Protein 7.1 g/dL (6.5-8.0); Triglycerides 61 mg/dL (<150)
--- OUTSIDE RECORDS SUMMARY | 2025-08-09 14:04 | XMS_ITS | Patient Health Record ---
Author Organization Darryl Peralta MD Address [address] [place], [place] [phone] Care Team Providers Care Seam Feller Name Role Phone Darryl Peralta Primary Care Provider [phone] Allergies No Known Allergies Results Component Value Reference Range Notes UA ClnCatch+Micro w/rflx Cul t (Not yet reviewed by provider) Interpretation: Performing Lab:[facility], [address] [place] [phone] Notes/Report: Urine, Clean Catch Color Urine Yellow Appearance Urine Clear PH 5.5 5.0-9.0 Glucose Urine UA Negative Negative mg/dL Urine Blood Negative Negative Specific [place] - Urine 1.010 1.005-1.025 Urine Protein Negative [...] ff Reviewed date:08/09/2025 12:25:35 PM Interpretation: Performing Lab:[facility], [address] [place] [phone] Notes/Report: White Blood Count 5.2 4.8-10.8 X10*3/uL [...] Panel Reviewed date:08/09/2025 12:29:27 PM Interpretation: Performing Lab:[facility], [address] [place] [phone] Notes/Report: Triglycerides 61 <150 mg/dL Desirable Triglyceride: [...] low results in patients with liver disease. Complete Blood Count Auto Di ff Reviewed date:10/11/2024 05:29:57 PM Interpretation: Performing Lab:[address] [phone] Notes/Report: White Blood Count 5.2 4.8-10.8 X10*3/uL Red Blood Count 4.08 4.20-5.50 X10*6/uL Hemoglobin 12.4 12.0-16.0 g/dl Hematocrit 36.5 37.0-47.0 % Mean Corpuscular Volume 89.5 80.0-98.0 fL Mean Corpuscular Hemoglobin 30.4 27.0-33.0 pg Mean Corpuscular HGB Conc 34.0 31.0-35.0 g/dl Red Cell Distribution Width 12.8 11.0-16.0 % Platelet Count 193 160-400 X10*3/uL Mean Platelet Volume 8.9 9.4-12.3 fL Neutrophils Percent Auto 53.5 45-73 % Imm Gran Pct Auto 0.2 0.0-0.4 % Lymphocytes Percent Auto 38.0 20-40 % Monocytes Percent Auto 5.0 2-11 % Eosinophils Percent Auto 1.9 0-4 % Basophils Percent Auto 1.4 0-2 % NRBC Pct Auto 0.0 0.0-0.2 /100WBC Neutrophils Absolute Auto 2.8 2.0-8.3 x10*3/u L Imm Gran Abs Auto 0.01 0.00-0.03 X10*3/uL Lymphocytes Absolute Auto 2.0 1.2-4.9 X10*3/u L Monocytes Absolute Auto 0.3 0.1-1.2 X10*3/uL Eosinophils Absolute Auto 0.1 0.0-0.4 X10*3/u L Basophils Absolute Auto 0.1 0.0-0.2 X10*3/uL NRBC Abs Auto 0.000 0.0-0.012 X10*3/uL Comprehensive Met. Panel Reviewed date:08/09/2025 12:45:47 PM Interpretation: Performing Lab:[facility], [address] [place] [phone] Notes/Report: Sodium 142 135-145 mmol/L Potassium 4.4 3.3-5.1 mmol/L Chloride 109 96-108 mmol/L Carbon Dioxide 25 22-29 mmol/L Anion Gap 12 12-20 Blood Urea Nitrogen 22 9-16 mg/dL Creatinine 1.03 0.5-1.4 mg/dL Estimated Glomerular Filt Rate 52 Chronic Kidney Disease: Estimated GFR < 60 mL/min/1.73m2 Severe Kidney Disease: Estimated GFR < 15 mL/min/1.73m2 Glucose Random 77 60-115 mg/dL Calcium 9.6 8.4-10.2 mg/dL Bilirubin Total 0.5 0.0-1.0 mg/dL Aspartate Amino Transferase 33 5-31 U/L Alanine Aminotransferase 23 0-31 U/L Total Protein 7.1 6.5-8.0 g/dL Albumin Level 4.0 3.5-5.0 g/dL Alkaline Phosphatase 47 39-117 U/L Reason For Referral No Information Medications Medication SIG (Take, Route, Frequency, Duration) Notes Start Date End Date Status ARIPiprazole 5 MG 0.5 tab Orally Once a day Active Colace 100 MG 1 capsule as needed [...] MG 1 tablet Orally once a week () Active Calcium + D 500-1000-40 MG-UNT-MCG 1 tablet with food Orally Twice a day Active Melatonin 5 MG 1 tablet at bedtime as needed with food Orally Once a day Active Multivitamin Adult 1 tablet Orally once a day Active lamoTRIgine 150 MG 1 tablet Orally Once a day for 30 day(s) Active Immunizations Vaccine Route Administration Date Status Comme nts Flu Vaccine IM Intramuscular 09/05/2011 Administered Flu Vaccine IM Intramuscular 09/03/2012 Administered PPSV23 (Pnemovax) IM Intramuscular 09/16/2013 Administered Flu Vaccine Unknown 08/16/2013 Administered Had it at [facility]. Fluarix Quadrivalent Unknown 08/08/2014 Administered Micah [place] at work Prevnar 13 IM Intramuscular 08/09/2014 Administered Fluarix Quadrivalent IM Intramuscular 07/18/2016 Administe red PPSV23 (Pnemovax) IM Intramuscular 11/26/2018 Administered Fluarix Quadrivalent IM Intramuscular 07/20/2019 Administisabelle red Shingrix IM Intramuscular 08/24/2019 Administered Shingrix IM Intramuscular 10/25/2019 Administered Fluarix Quadrivalent IM Intramuscular 08/09/2020 Administe red Influenza High Dose IM Intramuscular 08/02/2021 Administer ed SARS-COV-2 Moderna Unknown 01/12/2021 Administered SARS-COV-2 Moderna Unknown 02/09/2021 Administered SARS-COV-2 Pfizer Unknown 08/16/2021 Administered Influenza High Dose IM Intramuscular 07/26/2022 Administer ed Fluarix Quadrivalent IM Intramuscular 08/05/2023 Adminvaniae red Influenza High Dose IM Intramuscular 08/09/2025 Administer ed Social History Tobacco Use: Social History Observation [...] Problem Status W/U Status Risk Notes Problem 62922635 Lymphocytosis (D72.820) Active confirmed Problem 657521775 Mild intermitten t asthma without complication (J45.20) Active confirmed Problem 405612621 Migraine without aura and without status migrainosus, not intractable (G43.009) Active confirmed Problem 509766725 Neutropenia, unspecified type (D70.9) Active confirmed Problem 482748111 Osteopenia of spine (M85.88) Active confirmed Problem 02349575 PMR (polymyalgia rheumatica) (M35.3) Active confirmed Problem 856502145 Moderate persistent asthma with exacerbation (J45.41) Active confirmed Vital Signs Blood pressure diastolic 62 mm Hg 08/12/2024 herminio ght is down 6 pounds since 08-11-23 Height 66 in 08/12/2024 weight is down 6 pounds since 08-11-23 Blood pressure systolic 116 mm Hg 08/12/2024 weig ht is down 6 pounds since 08-11-23 Weight 160 lbs 08/12/2024 weight is down 6 pounds since 08-11-23 BMI 25.82 kg/m2 08/12/2024 weight is down 6 pounds since 08-11-23 Encounters Encounter Location Date Provider Diagnosis Darryl Peralta MD [address] [place] [address] [address] [place], [place] [phone] 08/09/2025 Darryl Peralta Lymphocytosis D72.82 0 and Encounter for administration of vaccine Z23 Darryl Peralta MD [address] [place] [address] [address] [place], [place] [phone] 08/12/2024 Darryl Peralta Neutropenia, unspecified type D70.9 ; Lymphocytosis D72.820 ; Migraine without aura and without status migrainosus, not intractable G43.009 and Depression screening Z13.31 Assessments Encounter Date Diagnosis (ICD Code) Assessment Notes Treatment Notes Treatment Clinical Notes Section Notes 08/09/2025 Lymphocytosis (ICD-10 - D72.820) 08/09/2025 Encounter for administration of vaccine (ICD-10 - Z23) 08/12/2024 Neutropenia, unspecified type (ICD-10 - D70.9) [...] and counseling the patient. Plan Of Treatment Pending Test Test Name Order Date Electrocardiogram (EKG) 07/03/2017 Electrocardiogram (EKG) 07/16/2018 Comprehensive [place]. Panel Fast 5 MM screening mammo BI 08/06/2021 UA ClnCatch+Micro w/rflx Cult 08/09/2025 Future Test Test Name Order Date BONE DENSITY DEXA 07/04/2021 Next Appt Details Provider Name:Darryl Starks ier, 08/16/2025 08:30:00 AM, [address], [address], [place], [place], [phone], Insurance Providers Payer Name Payer Address Payer Phone Subscriber Number Group Number Insured Name Patient Relationship to Insured Coverage Start Date Coverage End Date [employer] [address] [place] [address] [id number] DanielsRiri johnson Self - patient is the insured [employer] [address] [place], [place] [phone] [id number] DanielsRiri johnson Self - patient is the insured [place] [employer] [place] [address] [place] [address] [phone] [id number] DanielsRiri johnson Self - patient is the insured Medical (General) History Medical History History ICD Code 09/07/2013 Colonoscopy - repeat 10 years 05/17/2015 bone density - repeat 2 yrs don e 2019 repeat 2 yrs History of tinnitus cologard 2022 negative
--- OUTSIDE RECORDS SUMMARY | 2025-08-09 14:04 | XMS_ITS | Patient Health Record ---
Author Organization [facility] Address [address] [address] [place] [address] Care Team Providers Care Embroidery Cutter Name Role Phone Kathryn DARNELL, Darryl Primary Care Provider Vandana Avelar Unavailable [phone] Allergies No Known Allergies Reason For Referral [...] W/U Status Risk Notes Problem Plantar wart (53476238) Plantar wart (B07.0) Active confirmed Vital Signs Blood pressure diastolic 60 mm Hg 04/12/2025 Height 5ft5in in 04/12/2025 Blood pressure systolic 110 mm Hg 04/12/2025 Weight 160 lbs 04/12/2025 BMI 26.62 kg/m2 04/12/2025 Encounters Encounter Location Date Provider Diagnosis [facility] [address] 10/12/2024 Vandana Perica Pain in right toe(s) M79.674 ; Onychomycosis B35.1 and Pain in left toe(s) M79.[address] [facility] [address] 04/12/2025 Vandana Perica Onychomycosis B35.1 ; Right foot pain M79.671 and Plantar wart B07.[address] [address] 10/12/2024 [facility] [address] 11/22/2024 Vandana Perica [facility] [address] 01/13/2025 Vandana Perica [facility] [address] 05/30/2025 Vandana Perica [facility] [address] 07/21/2025 Vandana Isaaca Assessments Encounter Date Diagnosis (ICD [...] [employer] [address] [place] [address] [id number] Riri Daniels Self - patient is the insured [address] [place] [address] [address] [place] [address] [id number] Riri Daniels Self - patient is the insured Medical (General) History Medical History History ICD Code Arthritis asthma Cataracts Depression Headaches/Migraines Mumps Chicken pox Measles Surgical History Surgery Date(Month/Year) appendectomy 1950 tonsillectomy 1955
--- OUTSIDE RECORDS SUMMARY | 2025-08-09 14:04 | XMS_ITS | Clinical Summary ---
Author Organization [facility] Address [address] [place] [id number] Phone Care Team Providers Care Blueprint Assembler Name Role Phone Darryl Peralta MD Primary Care Provider Allergies No known active allergies Social History Tobacco Use Types Packs/Day Years Used Date Smoking Tobacco: Never Assessed Education Answer Date Recorded Are you interested in more education? Not on angie e 03/14/2023 Are you concerned about learning? Not on file 03/14/2023 No 03/14/2023 No 03/14/2023 Digital Access Answer Date Recorded No 04/12/2023 No 04/12/2023 No 04/12/2023 Reliable internet access at home? Not on file 04/12/2023 Device with a working camera? Not on file Intimate Partner Violence Answer Date R ecorded Are you denied basic needs s uch as food, clothing, or medical care? No 11/08/2022 In the past 12 months have y ou been in a relationship with a person who hurts, threatens, or tries to control you? No 11/08/2022 Are you denied basic needs s uch as food, clothing, or medical care? No 11/08/2022 In the past 12 months have y ou been in a relationship with a person who hurts, threatens, or tries to control you? No 11/08/2022 Comments Unknown Sex and Gender Information Value Date Recorded Sex Assigned at Not on file Legal Sex Female 10:37 PM EDT Gender Identity Not on file Sexual Orientation Not on file Last Filed Vital Signs Vital Sign Reading Time Taken Comments Blood Pressure 119/72 11/08/2022 10:55 PM EST Pulse 72 11/08/2022 10:55 PM EST Temperature 37.1 C (98.8 F) 11/08/2022 10:55 PM EST Respiratory Rate 20 11/08/2022 10:55 PM EST Oxygen Saturation 100% 11/08/2022 10:55 PM EST Inhaled Oxygen Concentration - - Weight 69.4 kg (153 lb) 11/08/2022 8:47 PM EST Height 167.6 cm (5' 6 ) 11/08/2022 8:47 PM EST Body Mass Index 24.69 11/08/2022 8:47 PM EST Plan of Treatment Health Maintenance Due Date Last Done Comments Adult Td,Tdap Booster 1950 LIPID PANEL 1950 DEPRESSION SCREENING 1961 SMOKING Hx and SMOKELESS TOBACCO SCREENING 1962 HEPATITIS C SCREENING 1967 OSTEOPOROSIS SCREENING INITIAL (ONE-TIME) 2014 RSV VACCINE (1 - 1-dose 75+ series) 2024 INFLUENZA VACCINE (#1) 2025 2, 07/26/2022, 08/02/2021, Additional history exists COVID-19 VACCINE ( season) 2025 08/16/2021, 02/09/2021, 01/12/2021 PNEUMOCOCCAL VACCINES (50+ years) Completed 11/26/2018, 08/09/2014 ZOSTER VACCINES Completed 10/25/2019, 08/24/2019 HEPATITIS A VACCINES Aged Out No long er eligible based on patient's age to complete this topic HIB VACCINES Aged Out No longer eligi ble based on patient's age to complete this topic MENINGOCOCCAL VACCINES (ACWY) Aged Out No longer eligible based on patient's age to complete this topic MENINGOCOCCAL VACCINES (B) Aged Out N o longer eligible based on patient's age to complete this topic Medical Devices Not on file Insurance MEDICARE PART A & B [facility] MEDICARE PART A & B [facility] MEDICARE PART A & B MEDICARE PART A & B MEDICARE PART A & B MEDICARE PART A & B MEDICARE PART A & B MEDICARE PART A & B [place] MEDICARE PART A & B [facility] FEDERAL Care Teams Blueprint Assembler Relationship Specialty Start Date End Date Darryl Peralta MD [address] [place] [address] [place] [address] PCP - General 11/20/17 Additional Source Comments The information contained in this document represents components of the legal health record. It is not the complete legal health record.[facility]
--- OUTSIDE RECORDS SUMMARY | 2025-08-09 14:04 | XMS_ITS | Patient Health Record ---
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 Name Role Phone Darryl Peralta MD Primary Care Provider Liu Vail Jr, Sha Unavailable Reason For Referral No Information [...] Status W/U Status Risk Notes Problem Constipation (57311951) Constipation (564.00) Active confirmed Problem Colon cancer screening (963498633) Colon cancer screening (V76.51) Active confirmed Plan Of Treatment Future Test Test Name Order Date COLONOSCOPY 08/04/2013 Insurance Providers Payer Name Payer Address Payer Phone Subscriber Number Group Number Insured Name Patient Relationship to Insured Coverage Start Date Coverage End Date [facility] [address] [place], [place] [id number] SHELIA CHAPMAN Self - patient is the insured Medical (General) History Medical History History ICD Code Denies PR,DM,CVA,Lung disease,renal dise ase Surgical History Surgery Date(Month/Year) tonsillectomy 1955 appendectomy 1950 dilatation and curettage
== END 2025-08-09 11:14 | disposition home or self-care (01) ==
LOC: HO.LNP 11:13
PROVIDERS: Visit Provider Internal Medicine
DX: Z13.6 Encounter for screening for cardiovascular disorders (principal); D72.820 Lymphocytosis (symptomatic)
CPT/HCPCS: 80053; 80061; 81001; 85025

== ENCOUNTER 2025-08-23 14:31 | Emergency (ER) | payer MEDICARE, BC, SELFPAY ==
--- OUTSIDE RECORDS SUMMARY | 2024-08-05 04:30 | XMS_ITS ---
Author Organization Darryl Peralta MD Address [address] [place], [place] [phone] Care Team Providers Care Customer Supply Coordinator Name Role Phone Darryl Peralta Primary Care Provider Results Component Value Reference Range Notes Complete Blood Count Auto Di ff Reviewed date:08/05/2024 12:15:24 PM Interpretation: Performing Lab:[facility], [address] [place] [phone] Notes/Report: White Blood Count 4.4 4.8-10.8 X10*3/uL [...] NRBC Abs Auto 0.000 0.0-0.012 X10*3/uL Comprehensive [place]. Panel Fa Reviewed date:08/05/2024 12:53:24 PM Interpretation: Performing Lab:[address] [phone] Notes/Report: Sodium 144 135-145 mmol/L Potassium 4.3 3.3-5.1 mmol/L Chloride 109 96-108 mmol/L Carbon Dioxide 26 22-29 mmol/L Anion Gap 13 12-20 Blood Urea Nitrogen 15 9-16 mg/dL Creatinine 0.86 0.5-1.4 mg/dL Estimated Glomerular Filt Rate > 60 NOTE: For -[place]ese individuals, multiply the result by 1.210. Chronic [...] Panel Reviewed date:08/05/2024 12:33:35 PM Interpretation: Performing Lab:[facility], [address] [place] [phone] Notes/Report: Triglycerides 91 <150 mg/dL Desirable Triglyceride: [...] t Reviewed date:08/05/2024 03:09:28 PM Interpretation: Performing Lab:[facility], [address] [place] [phone] Notes/Report: Urine, Clean Catch Color Urine Yellow Appearance Urine Clear PH 5.5 5.0-9.0 Glucose Urine UA Negative Negative mg/dL Urine Blood Negative Negative Specific [place] - Urine 1.010 1.005-1.025 Urine Protein Negative [...] Location Date Provider Diagnosis Darryl Peralta MD [address] [place] [address] [place] [phone] 08/05/2024 Darryl Peralta Lymphocytosis D72.82 0 Assessments Encounter Date Diagnosis (ICD Code) Assessment Notes Treatment Notes Treatment Clinical Notes Section Notes 08/05/2024 Lymphocytosis (ICD-10 - D72.820) Plan Of Treatment Next Appt Details Provider Name:Darryl bahena, 02/13/2026 07:15:00 AM, [address] [place] [address], [address], [phone], Provider Name:Darryl bahena, 08/11/2026 07:15:00 AM, [address] [place] [address], [address], [phone], Provider Name:Darryl Starks ier, 08/18/2026 08:00:00 AM, [address], [address], [place], [phone], Progress Notes * Riri CHAPMAN MDOB: [birth year] (75 yo F)Acc No.[id number]:08/05/2024 Progress Note Patient: Riri BUTLER Provider: Lanre Peralta MD :1950 A ge:74 Y S ex:Female Date:08/05/2024 Address:[address] [place] [address] Subjective: * Chief Complaints: * 1 . [...] 0 08/05/2024 Generated for Caesar godoy/Isabel/Oliviaitting on: 06:51 PM EDT
--- OUTSIDE RECORDS SUMMARY | 2024-08-12 04:30 | XMS_ITS ---
Author Organization Darryl Peralta MD Address [address] [place], [place] [id number] Care Team Providers Care Verifier Operator Name Role Phone Darryl Peralta Primary Care Provider [phone] Allergies No Known Allergies REASON FOR VISIT [...] Problem Status W/U Status Risk Notes Problem [id number] Neutropenia, unspecified type (D70.9) Active confirmed Vital Signs Blood pressure systolic 116 mm Hg 08/12/20 24 Blood pressure diastolic 62 mm Hg 024 Height 66 in 08/12/2024 Weight 160 lbs 08/12/2024 BMI 25.82 kg/m2 08/12/2024 weight is down 6 pounds [facility] 08-11-23 Encounters Encounter Location Date Provider Diagnosis Darryl Peralta MD [address] [place] [address] [address] [place], [place] [phone] 08/12/2024 Darryl Peralta Neutropenia, unspecified type D70.9 [...] Reason: Provider Name:Darryl bahena, 02/13/2026 07:15:00 AM, [address] [place] [address], [address], [place], [place], [phone], Provider Name:Darryl bahena, 08/11/2026 07:15:00 AM, [address], [address], [place], [place], [id number], Provider Name:Darryl Starks ier, 08/18/2026 08:00:00 AM, [address], [address], [place], [id number], Progress Notes * Riri CHAPMAN MDOB: [birth year] (74 yo F)Acc No.[id number]:08/12/2024 Patient: Riri Morley Provider: Lanre Peralta MD :1950 A ge:74 Y S ex:Female Date:08/12/2024 Address:[address] [place] [address] [id number] Subjective: * Chief Complaints: * R eview [...] Auto 0.000 0.0-0.012 - X10*3/uL L ab:Comprehensive [place]. Panel Fast (Order Date - 08/05/2024) (Collection [...] mg/dL Urine Blood Negative Negative - Specific [place] - Urine 1.010 1.005-1.025 - Urine Protein [...] MD Date: 0 08/12/2024 Generated for Caesar godoy/Isabel/Oliviaitting on: 1 06:53 PM EDT History and Physical Notes * HPI (History [...]
--- OUTSIDE RECORDS SUMMARY | 2024-10-12 04:15 | XMS_ITS ---
Author Organization Darryl Peralta MD Address [address] [place] [phone] Care Team Providers Care Television Engineering Teacher Name Role Phone Darryl Peralta Primary Care Provider [phone] REASON FOR VISIT CBC AUTO DIFF Encounters Encounter Location Date Provider Diagnosis Darryl Peralta MD [address] [place] [phone] 10/12/2024 Darryl Peralta Neutropenia, unspecified type D70.9 Assessments Encounter Date Diagnosis (ICD Code) Assessment Notes Treatment Notes Treatment Clinical Notes Section Notes 10/12/2024 Neutropenia, unspecified type (ICD-10 - D70.9) Plan Of Treatment Next Appt Details Provider Name:Darryl bahena, 02/13/2026 07:15:00 AM, [address] [place] [address], [phone], Provider Name:Darryl bahena, 08/11/2026 07:15:00 AM, [address] [place] [address], [phone], Provider Name:Darryl bahena, 08/18/2026 08:00:00 AM, [address] [place] [address], [phone], Progress Notes * Olivia CHAPMAN MDOB: [birth year] (75 yo F)Acc No.[id number]:10/12/2024 Progress Note Patient: Olivia BUTLER Provider: Lanre Peralta MD :1950 A ge:74 Y S ex:Female Date:10/12/2024 Address:[address] [place] [address] [facility] [place] [place] Subjective: * Chief Complaints: * 1 . [...] Date: 12/12/2023 Generated for Caesar godoy/Isabel/Oliviaitting on: 06:52 PM EDT
--- OUTSIDE RECORDS SUMMARY | 2025-08-09 03:15 | XMS_ITS ---
Author Organization Darryl Peralta MD Address [address] [place], [place] [phone] Care Team Providers Care Oncology Registrar Name Role Phone Darryl Peralta Primary Care Provider Results Component Value Reference Range Notes Complete Blood Count Auto Di ff Reviewed date:08/09/2025 12:25:35 PM Interpretation: Performing Lab:[facility], [address] [place] [phone] Notes/Report: White Blood Count 5.2 4.8-10.8 X10*3/uL [...] Panel Reviewed date:08/09/2025 12:29:27 PM Interpretation: Performing Lab:[facility], [address] [place] [phone] Notes/Report: Triglycerides 61 <150 mg/dL Desirable Triglyceride: [...] t Reviewed date:08/09/2025 06:22:56 PM Interpretation: Performing Lab:[facility], [address] [place] [phone] Notes/Report: Urine, Clean Catch Color Urine Yellow Appearance Urine Clear PH 5.5 5.0-9.0 Glucose Urine UA Negative Negative mg/dL Urine Blood Negative Negative Specific [place] - Urine 1.010 1.005-1.025 Urine Protein Negative [...] Date Provider Diagnosis Darryl Peralta MD [address] [place] [id number] 08/09/2025 Darryl Peralta Lymphocytosis D72.82 0 and Encounter for administration of vaccine Z23 Assessments Encounter Date Diagnosis (ICD Code) Assessment Notes Treatment Notes Treatment Clinical Notes Section Notes 08/09/2025 Lymphocytosis (ICD-10 - D72.820) 08/09/2025 Encounter for administration of vaccine (ICD-10 - Z23) Plan Of Treatment Pending Test Test Name Order Date Comprehensive [place]. Panel Fast Next Appt Details Provider Name:Darryl bahena, 02/13/2026 07:15:00 AM, [address] [place] [address], [address], [phone], Provider Name:Darryl bahena, 08/11/2026 07:15:00 AM, [address] [place] [address], [address], [phone], Provider Name:Darryl bahena, 08/18/2026 08:00:00 AM, [address] [place] [address], [address], [phone], Progress Notes * Riri CHAPMAN MDOB: [birth year] (75 yo F)Acc No.[id number]:08/09/2025 Progress Note Patient: Riri BUTLER Provider: Lanre Peralta MD :1950 A ge:75 Y S ex:Female Date:08/09/2025 Address:[address] [place] [address] janae [id number] Subjective: * Chief Complaints: * 1 . [...] 0662 FLU VACC PRSV FREE INC ANTIG, [address] VENIPUNCT, ROUTINE*, G0008 ADMN FLU VAC NO FEE SCHED SAME DAY * * The named appointment provid er may or may not be the originator of this progress note, and it is not deemed complete until electronically signed by the appointment provider. Sign off status: Pending * Provider: Lanre Peralta MD Date: 0 08/09/2025 Generated for Caesar godoy/Isabel/Oliviaitting on: 1 06:52 PM EDT
--- OUTSIDE RECORDS SUMMARY | 2025-08-16 04:30 | XMS_ITS ---
Author Organization Darryl Peralta MD Address [address] [place], [place] [id number] Care Team Providers Care Entertainer Or Variety Artist Name Role Phone Darryl Peralta Primary [...] Location Date Provider Diagnosis Darryl Peralta MD [address] [place] [phone] 08/16/2025 Darryl Peralta Elevated BUN R79.9 ; [...] Reason: Provider Name:Darryl bahena, 02/13/2026 07:15:00 AM, [address] [place] [address], [place] [address], [place], [place], [phone], Provider Name:Darryl bahena, 08/11/2026 07:15:00 AM, [address] [place] [address], [place] [address], [place], [place], [phone], Provider Name:Darryl bahena, 08/18/2026 08:00:00 AM, [address] [place] [address], [address], [phone], Progress Notes * Riri CHAPMAN MDOB: [birth year] (75 yo F)Acc No.[id number]:08/16/2025 Patient: Riri BUTLER Provider: Lanre Peralta MD :1950 A ge:75 Y S ex:Female Date:08/16/2025 Address:[address] [place], [place] [phone] Subjective: * Chief Complaints: * R eview [...] mg/dL Urine Blood Negative Negative - Specific [place] - Urine 1.010 1.005-1.025 - Urine Protein [...] MD Date: 0 08/16/2025 Generated for Caesar godoy/Isabel/Angelasmitting on: 1 06:53 PM EDT History and [...]
[2025-08-23 14:54] VITALS: BP 140/65; PULSE 68; RESP 20; TEMP 37; O2SAT 96; BMI 26.0
--- NOTE | 2025-08-23 14:58 | ED.GENADULT ---
HPI - General Adult General Chief complaint: General Medical Stated complaint: arthritis flare Time Seen by Provider: 08/23/25 16:11 Source: patient Mode of arrival: ambulatory Limitations: no limitations History of Present Illness ED Provider: Artemio Coley HPI narrative: 75 yold family with generalized osteoarthritits, and PMR presents to the ED for generalized joint pain. Patient deneis any fever, chills, nuasea, vomitting, flank pain, rash, recent trauma, chest pain, shortness of breath, or weakness. Related Data Home Medications ?Medication ?Instructions ?Recorded ?Confirmed acetaminophen 650 mg 1,300 mg PO Q12H PRN 06/12/21 05/26/25 tablet,extended release (Tylenol Arthritis Pain) albuterol sulfate 90 mcg/actuation 2 puff inhalation Q6H PRN 06/12/21 05/26/25 aerosol inhaler (Ventolin HFA) uzhlddh-naktoqkeqegha-ngfxekgj 250 2 tab PO Q6H PRN 06/12/21 05/26/25 mg-250 mg-65 mg tablet (Excedrin Extra Strength) lamotrigine 150 mg tablet 150 mg PO DAILY 06/12/21 05/26/25 melatonin 5 mg capsule mg PO .evening 06/12/21 05/26/25 sumatriptan succinate 50 mg tablet 50 mg PO Q2-4H PRN 06/12/21 05/26/25 (Imitrex) therapeutic multivitamin 1 tab PO DAILY 06/12/21 05/26/25 aripiprazole 5 mg tablet (Abilify) 2.5 mg PO BEDTIME 05/26/25 05/26/25 docusate sodium 100 mg capsule 100 mg PO DAILY 05/26/25 05/26/25 (Colace) lifitegrast 5 % eye drops in a 1 drp ophthalmic (eye) BID 05/26/25 05/26/25 dropperette (Xiidra) Previous Rx's ?Medication ?Instructions ?Recorded calcium 600 mg (as 1 tab PO BID #180 tabs 03/17/25 carbonate)-vitamin D3 5 mcg (200 unit) tablet celecoxib 200 mg capsule (Celebrex) 200 mg PO BID #180 caps 03/17/25 prednisone 20 mg tablet 20 mg PO DAILY #7 tabs 08/23/25 Allergies Allergy/AdvReac Type Severity Reaction Status Date / Time No Known Allergies Allergy Verified 08/23/25 14:54 Review of Systems Review of Systems: bodyaches, joint pain Yes all other systems are reviewed and are negative [facility] Past Medical History Medical History (Updated 08/23/25 @ 16:21 by ERIC Simmons) Asthma Migraine without aura Chronic tension type headache Arthritis Bipolar disorder De Quervain's disease (tenosynovitis) PMR (polymyalgia rheumatica) Surgical History Hx of eye surgery History of tonsillectomy Family History Family History (Updated 05/26/25 @ 11:49 by Yamilet Marcelino MA) Maternal Aunt Colon cancer Daughter Headache Son Headache Social History Social History Patient Tobacco Use Status: Never used Tobacco e-Cigarette/Vaping Use: Never Used Advance Directives: No Advance Directives Information Provided: Yes Current occupational status: retired 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 Physical Exam ED Vital Signs: Vital Signs - 24 hr 08/23/25 14:54 Temperature 98.6 F Pulse Rate 68 Respiratory Rate 20 Blood Pressure 140/65 H Pulse Oximetry 96 Oxygen Delivery Method Room Air BMI result Body Mass Index 26.0 Const General: cooperative, healthy appearing, comfortable, no acute distress, well developed, alert, awake and Physically active Orientation/consciousness: oriented to time and patient oriented x3 HENMT Head: Yes normal to inspection, Yes No palpable skull fracture present, Yes normocephalic and Yes atraumatic Eyes General: appearance normal, both eyes and all related structures Neck Neck: Yes normal visual inspection, Yes full ROM, Yes no lymphadenopathy, Yes no meningeal signs, Yes trachea midline, Yes supple, No anterior neck swelling and No tender Chest Chest palpation & inspection: normal inspection of the chest and normal palpation of entire chest wall Resp Effort & Inspection: normal respiratory effort and able to speak in complete sentences Auscultation: clear to auscultation bilaterally Cardio Jugular venous distension: no JVD Heart sounds: S1 normal heart sound present and S2 normal heart sound present GI Inspection: Yes normal to inspection Palpation (GI): Soft to palpation, not firm, nontender, no guarding and not rigid General: Yes no CVA tenderness Back/Spine/Pelvis Back: no CVA tenderness and No back tenderness Skin General skin exam: no rashes or lesions noted, elasticity normal and turgor normal Neuro General: oriented to time, patient oriented x3, gait normal, tone normal, moves all extremities, Normal light touch and pain sensation, no meningeal signs, no focal motor deficits, CN's II-XI intact bilaterally and normal sensation to monofilament Extrem General: Yes normal to inspection, Yes full ROM and Yes capillary refill normal Psych Appearance: grossly normal, well kempt and disheveled Course Course Course Narrative: RME: 75-year-old female presents to ED for generalized Medical Decision Making Medical Decision Making MDM Narrative: 75 year old female with past medical history of polymyalgia rheumatica and arthritis of bilateral hands, feet, and hip joints presents to ED for generalized joint pain. Patient believes she is having a arthritis flare. Patient denies any chest pain, shortness of breath, nausea, vomiting, headache, dizziness, fever, or chills. Patient denies any recent trauma or rash. Patient denies for any stroke-like symptoms. Patient denies any over exertion, exercising, or walk into indicate rhabdomyolysis. Labs were reassuring. Patient is usually when she has her polymyalgia rheumatica arthritis flare she is treated with steroids. Patient will be discharged with a prednisone. Patient explained worrisome signs informed return to the ED immediately. Not suspecting PE, rhabdomyolsis, SC, CHF, sepsis, or any other life threatening etiology. Differential Diagnosis Differential Diagnoses: The differential diagnosis associated with the presentation includes (Rhabdomyolysis, polymyalgia rheumatica) Admission/Observation Consideration of admission/observation: Escalation of care including admission/observation considered Lab Data [facility] Lab Attestation statement: I reviewed the patient's lab results. 08/23/25 15:09 08/23/25 15:09 Labs: Lab Results 08/23/25 Range/Units 15:09 WBC 5.2 (4.8-10.8) X10*3/uL RBC 3.79 L (4.20-5.50) X10*6/uL Hgb 11.2 L (12.0-16.0) g/dl Hct 33.1 L (37.0-47.0) % MCV 87.3 (80.0-98.0) fL MCH 29.6 (27.0-33.0) pg MCHC 33.8 (31.0-35.0) g/dl RDW 13.2 (11.0-16.0) % Plt Count 214 (160-400) X10*3/uL MPV 8.7 L (9.4-12.3) fL Immature Gran % (Auto) 0.2 (0.0-0.4) % Neut % (Auto) 52.5 (45-73) % Lymph % (Auto) 37.7 (20-40) % [place] % (Auto) 6.9 (2-11) % Eos % (Auto) 1.9 (0-4) % Baso % (Auto) 0.8 (0-2) % Lymph # (Auto) 2.0 (1.2-4.9) X10*3/uL [place] # (Auto) 0.4 (0.1-1.2) X10*3/uL Eos # (Auto) 0.1 (0.0-0.4) X10*3/uL Baso # (Auto) 0.0 (0.0-0.2) X10*3/uL Abs Immat Gran (auto) 0.01 (0.00-0.03) X10*3/uL Absolute Neuts (auto) 2.8 (2.0-8.3) x10*3/uL Absolute Nucleated RBC 0.000 (0.0-0.012) X10*3/uL Nucleated RBC % (auto) 0.0 (0.0-0.2) /100WBC Sodium 142 (135-145) mmol/L Potassium 4.5 (3.3-5.1) mmol/L Chloride 108 (96-108) mmol/L Carbon Dioxide 27 (22-29) mmol/L Anion Gap 12 (12-20) BUN 15 (9-16) mg/dL Creatinine 0.95 (0.5-1.4) mg/dL Estim Creat Clear Calc 51.5 Estimated GFR 57 Random Glucose 83 (60-115) mg/dL Calcium 9.4 (8.4-10.2) mg/dL Total Bilirubin 0.5 (0.0-1.0) mg/dL AST 20 (5-31) U/L ALT 13 (0-31) U/L Alkaline Phosphatase 50 (39-117) U/L Total Creatine Kinase 43 (26-140) U/L Total Protein 6.9 (6.5-8.0) g/dL Albumin 3.9 (3.5-5.0) g/dL COVID-19 (GURINDER) Negative (Negative) COVID-19 Clin Com See Note Influenza Type A (LITA) Negative (Negative) Influenza Type B (LITA) Negative (Negative) Influenza A & B Note See Note Independent Historian Clinical information obtained from an independent historian. History obtained from or confirmed by: Other (patient) Prescription Management I considered prescription management with: Pain Medication Discharge Plan Discharge Clinical Impression: PMR (polymyalgia rheumatica), Osteoarthritis of both feet Osteoarthritis of hands, bilateral Qualifiers: Osteoarthritis type: primary Qualified Code(s): M19.041 - Primary osteoarthritis, right hand Patient Disposition: Home, Self-Care Instructions: Osteoarthritis (ED), Polymyalgia Rheumatica (ED) Additional Instructions: Recommend follow-up with your program coordinator and primary care provider. Return to the ED for any worsening pain, fever, chills, rash, chest pain, shortness of breath, headache, dizziness, loss of vision, change in vision, or any other concerning symptoms. Prescriptions: New prednisone 20 mg tablet 20 mg PO DAILY Qty: 7 0RF No Action melatonin 5 mg capsule PO .evening therapeutic multivitamin Tablet 1 tab PO DAILY Excedrin Extra Strength 250-250-65 mg tablet 2 tab PO Q6H PRN acetaminophen [Tylenol Arthritis Pain] 650 mg tablet extended release 1,300 mg PO Q12H PRN albuterol sulfate [Ventolin HFA] 90 mcg/actuation HFA aerosol inhaler 2 puff inhalation Q6H PRN sumatriptan succinate [Imitrex] 50 mg tablet 50 mg PO Q2-4H PRN Rx Instructions: do not exceed 4 doses per 24 hrs lamotrigine 150 mg tablet 150 mg PO DAILY aripiprazole [Abilify] 5 mg tablet 2.5 mg PO BEDTIME celecoxib [Celebrex] 200 mg capsule 200 mg PO BID Qty: 180 1RF calcium carbonate-vitamin D3 600 mg-5 mcg (200 unit) tablet 1 tab PO BID Qty: 180 1RF docusate sodium [Colace] 100 mg capsule 100 mg PO DAILY Xiidra 5 % dropperette 1 drp ophthalmic (eye) BID Rx Instructions: administer approximately 12 hours apart Referrals: Darryl Peralta MD [Primary Care Provider, Medical] - 2 days Referral Note: Generalized joint pain Clinical Impression: PMR (polymyalgia rheumatica); Osteoarthritis of both feet; Osteoarthritis of hands, bilateral Interventions: ED Discharge Assessment Last Done: 08/23/25 16:34 Discharge Date/Time: 08/23/25 16:34 Print Language: Faroese
[2025-08-23 15:13] LABS: MANUAL DIFF FLAG NO
[2025-08-23 15:16] LABS: Hematocrit 33.1 % (37.0-47.0); Hemoglobin 11.2 g/dl (12.0-16.0); Imm Gran Abs Auto 0.01 X10*3/uL (0.00-0.03); Imm Gran Pct Auto 0.2 % (0.0-0.4); Lymphocytes Absolute Auto 2.0 X10*3/uL (1.2-4.9); Mean Corpuscular HGB Conc 33.8 g/dl (31.0-35.0); Mean Corpuscular Hemoglobin 29.6 pg (27.0-33.0); Mean Corpuscular Volume 87.3 fL (80.0-98.0); NRBC Abs Auto 0.000 X10*3/uL (0.0-0.012); NRBC Pct Auto 0.0 /100WBC (0.0-0.2); Platelet Count 214 X10*3/uL (160-400); Red Blood Count 3.79 X10*6/uL (4.20-5.50); White Blood Count 5.2 X10*3/uL (4.8-10.8)
[2025-08-23 15:26] LABS: IDNOW Serial# 58CA691E
[2025-08-23 15:27] LABS: Alanine Aminotransferase 13 U/L (0-31); Albumin Level 3.9 g/dL (3.5-5.0); Alkaline Phosphatase 50 U/L (39-117); Anion Gap 12 (12-20); Aspartate Amino Transferase 20 U/L (5-31); Blood Urea Nitrogen 15 mg/dL (9-16); Calcium 9.4 mg/dL (8.4-10.2); Carbon Dioxide 27 mmol/L (22-29); Chloride 108 mmol/L (96-108); Creatinine Clr Calc Pharmacy 51.5; Estimated Glomerular Filt Rate 57; Potassium 4.5 mmol/L (3.3-5.1); Sodium 142 mmol/L (135-145); Total Protein 6.9 g/dL (6.5-8.0)
[2025-08-23 15:28] LABS: COVID-19 Test Negative (Negative); IDNOW Serial# 55D5AD1C; Influenza B2 Negative (Negative)
[2025-08-23 16:34] VITALS: BP 140/65; PULSE 68; RESP 20; TEMP 37; O2SAT 96
--- OUTSIDE RECORDS SUMMARY | 2025-08-23 18:52 | XMS_ITS | Clinical Summary ---
Author Organization [facility] Address [address] [place] [address] Phone Care Team Providers Care Gis Consultant Name Role Phone Darryl Peralta MD Primary [...] file Insurance MEDICARE PART A & B [facility] MEDICARE PART A & B [facility] MEDICARE PART A & B MEDICARE PART A & B MEDICARE PART A & B MEDICARE PART A & B MEDICARE PART A & B MEDICARE PART A & B Real Time Translation [facility] MEDICARE PART A & B [facility] [employer]ER[employer] Care Teams Gis Consultant Relationship Specialty Start Date End Date Darryl Peralta MD [address] [place] [address] [place] [address] PCP - General 11/20/17 Additional Source Comments The information contained in this document represents components of the legal health record. It is not the complete legal health record.[facility]
--- OUTSIDE RECORDS SUMMARY | 2025-08-23 18:52 | XMS_ITS | Patient Health Record ---
Author Organization [facility] Address [address] [place] [address] Care Team Providers Care Ground[place] Programs Director Name Role Phone Darryl Peralta MD Primary Care Provider Liu Vail Jr, Sha Unavailable [phone] Reason For Referral No Information Medications Medication [...] Status W/U Status Risk Notes Problem Constipation (48331285) Constipation (564.00) Active confirmed Problem Colon cancer screening (801209482) Colon cancer screening (V76.51) Active confirmed Plan Of Treatment Future Test Test Name Order Date COLONOSCOPY 08/04/2013 Insurance Providers Payer Name Payer Address Payer Phone Subscriber Number Group Number Insured Name Patient Relationship to Insured Coverage Start Date Coverage End Date [facility] [address] [place], [place] [id number] [phone] [id number] SHELIA CHAPMAN Self - patient is the insured Medical (General) History Medical History History ICD Code Denies OK,DM,CVA,Lung disease,renal dise ase Surgical History Surgery Date(Month/Year) tonsillectomy 1955 appendectomy 1950 dilatation and curettage
--- OUTSIDE RECORDS SUMMARY | 2025-08-23 18:52 | XMS_ITS | Patient Health Record ---
Author Organization Darryl Peralta MD Address [address] [place], [place] [id number] Care Team Providers Care Vice President Of Marketing Name Role Phone Darryl Peralta Primary Care Provider Allergies No Known Allergies Results Component Value Reference Range Notes Complete Blood Count Auto Di ff Reviewed date:08/09/2025 12:25:35 PM Interpretation: Performing Lab:[facility], [address] [place] [phone] Notes/Report: White Blood Count 5.2 4.8-10.8 X10*3/uL [...] Panel Reviewed date:08/09/2025 12:29:27 PM Interpretation: Performing Lab:[facility], [address] [place] [phone] Notes/Report: Triglycerides 61 <150 mg/dL Desirable Triglyceride: [...] t Reviewed date:08/09/2025 06:22:56 PM Interpretation: Performing Lab:[facility], [address] [place] [phone] Notes/Report: Urine, Clean Catch Color Urine Yellow Appearance Urine Clear PH 5.5 5.0-9.0 Glucose Urine UA Negative Negative mg/dL Urine Blood Negative Negative Specific [place] - Urine 1.010 1.005-1.025 Urine Protein Negative [...] ff Reviewed date:10/11/2024 05:29:57 PM Interpretation: Performing Lab:[address] [phone] Notes/Report: White Blood Count 5.2 4.8-10.8 X10*3/uL [...] Panel Reviewed date:08/09/2025 12:45:47 PM Interpretation: Performing Lab:[facility], [address] [place] [phone] Notes/Report: Sodium 142 135-145 mmol/L Potassium 4.4 [...] 3.5-5.0 g/dL Alkaline Phosphatase 47 39-117 U/L Complete Blood Count Auto Di ff (Not yet reviewed by provider) Interpretation: Performing Lab:[facility], [address] [place] [phone] Notes/Report: White Blood Count 5.2 4.8-10.8 X10*3/uL Red Blood Count 3.79 4.20-5.50 X10*6/uL Hemoglobin 11.2 12.0-16.0 g/dl Hematocrit 33.1 37.0-47.0 % Mean Corpuscular Volume 87.3 80.0-98.0 fL Mean Corpuscular Hemoglobin 29.6 27.0-33.0 pg Mean Corpuscular HGB Conc 33.8 31.0-35.0 g/dl Red Cell Distribution Width 13.2 11.0-16.0 % Platelet Count 214 160-400 X10*3/uL Mean Platelet Volume 8.7 9.4-12.3 fL Neutrophils Percent Auto 52.5 45-73 % Imm Gran Pct Auto 0.2 0.0-0.4 % Lymphocytes Percent Auto 37.7 20-40 % Monocytes Percent Auto 6.9 2-11 % Eosinophils Percent Auto 1.9 0-4 % Basophils Percent Auto 0.8 0-2 % NRBC Pct Auto 0.0 0.0-0.2 /100WBC Neutrophils Absolute Auto 2.8 2.0-8.3 x10*3/u L Imm Gran Abs Auto 0.01 0.00-0.03 X10*3/uL Lymphocytes Absolute Auto 2.0 1.2-4.9 X10*3/u L Monocytes Absolute Auto 0.4 0.1-1.2 X10*3/uL Eosinophils Absolute Auto 0.1 0.0-0.4 X10*3/u L Basophils Absolute Auto 0.0 0.0-0.2 X10*3/uL NRBC Abs Auto 0.000 0.0-0.012 X10*3/uL Comprehensive Met. Panel (No t yet reviewed by provider) Interpretation: Performing Lab:[address] [phone] Notes/Report: Sodium 142 135-145 mmol/L Potassium 4.5 3.3-5.1 mmol/L Chloride 108 96-108 mmol/L Carbon Dioxide 27 22-29 mmol/L Anion Gap 12 12-20 Blood Urea Nitrogen 15 9-16 mg/dL Creatinine 0.95 0.5-1.4 mg/dL Creatinine Clr Calc Pharmacy 51.5 Provided height and weight: 167.64 cm, 73.119 kg. eGFR (calculated from the MDRD study equation) and eCrCl (calculated from the Cockcroft-Gault equation) are based on different parameters and may not yield comparable results. If eCrCl result is absurd, please check patient's height/weight. Estimated Glomerular Filt Rate 57 Chronic Kidney Disease: Estimated GFR < 60 mL/min/1.73m2 Severe Kidney Disease: Estimated GFR < 15 mL/min/1.73m2 Glucose Random 83 60-115 mg/dL Calcium 9.4 8.4-10.2 mg/dL Bilirubin Total 0.5 0.0-1.0 mg/dL Aspartate Amino Transferase 20 5-31 U/L Alanine Aminotransferase 13 0-31 U/L Total Protein 6.9 6.5-8.0 g/dL Albumin Level 3.9 3.5-5.0 g/dL Alkaline Phosphatase 50 39-117 U/L Creatine Kinase Total (Not y et reviewed by provider) Interpretation: Performing Lab:[address] [phone] Notes/Report: Creatine Kinase Total 43 26-140 U/L COVID-19 ID NOW (Zhao) (No t yet reviewed by provider) Interpretation: Performing Lab:[facility], [address] [place] [phone] Notes/Report: IDNOW Serial# [id number] COVID-19 Test Negative Negative COVID-19 Note See Note Results are for the identification of SARS-CoV2 RNA. The SARS-CoV2 RNA is generally detectable in respiratory samples during the acute phase of infection. Positive results are indicative of the presence of SARS-CoV-2 RNA; clinical correlation with patient history and other diagnostic information is necessary to determine patient infection status. Positive results do not rule out bacterial infection or co-infection with other viruses. Testing facilities within the [facility] and its territories are required to report all positive results to the appropriate public health authorities. Negative results should be treated as presumptive and, if inconsistent with clinical signs and symptoms or necessary for patient management, should be tested with different authorized or cleared molecular tests. Negative results do not preclude SARS-CoV2 RNA infection and should not be used as the sole basis for patient management decisions. Negative results should be considered in the context of a patient's recent exposures, history and the presence of clinical signs and symptoms consistent with COVID-19. This test has been authorized by the FDA under an Emergency Use Authorization (EUA) for use by authorized laboratories. Testing performed on the Zhao ID NOW utilizing NAAT. Influenza A B2 ID NOW (Abbot t) (Not yet reviewed by provider) Interpretation: Performing Lab:[facility], [address] [place] [phone] Notes/Report: IDNOW Serial# [id number] Influenza A Negative Negative Influenza B2 Negative Negative Influenza A B2 Note See Note The Zhao ID NOW Influenza A B2 test is used for the qualitative detection of influenza A and B from patients with signs and symptoms of respiratory infection. Negative results do not preclude influenza virus infection and should not be used as the sole basis for diagnosis, treatment or other patient management decisions. There is a risk of false negative results due to the presence of variants in the viral targets of the assay, low levels of virus in the specimen and co-infection with Respiratory Syncytial Virus. Reason For Referral No Information Medications Medication SIG (Take, Route, Frequency, Duration) Notes Start Date End Date Status Alendronate Sodium 70 MG 1 tablet Orally once a week (friday') Active Calcium + D 500-1000-40 MG-UNT-MCG 1 tablet with food Orally Twice a day Active Melatonin 5 MG 1 tablet at bedtime as needed with food Orally Once a day Active Multivitamin Adult 1 tablet Orally once a day Active Tylenol Arthritis Pain 650 MG 2 tablets as needed Orally every 8 hrs Not-Taking Imitrex 100 MG 1 tablet Orally as needed Not-Taking ProAir HFA 108 (90 Base) MCG/ACT 2 puffs as needed Inhalation every 4 hrs for 30 days Not-Taking Topiramate 50 MG 1 tablet Orally at bedtime Not-Taking ARIPiprazole 5 MG 0.5 tab Orally Once a day Active CeleBREX 200 MG 1 capsule as needed Orally twice a day Active Colace 100 MG 1 capsule as needed Orally Bid Not-Taking lamoTRIgine 150 MG 1 tablet Orally Once a day for 30 day(s) Active Immunizations Vaccine Route Administration Date Status Comme nts Flu Vaccine IM Intramuscular 09/05/2011 Administered Flu Vaccine IM Intramuscular 09/03/2012 Administered PPSV23 (Pnemovax) IM Intramuscular 09/16/2013 Administered Flu Vaccine Unknown 08/16/2013 Administered Had it at [facility]. Fluarix Quadrivalent Unknown 08/08/2014 Administered [place] [facility] Prevnar 13 IM Intramuscular 08/09/2014 Administered Fluarix Quadrivalent IM Intramuscular 07/18/2016 Administe red PPSV23 (Pnemovax) IM Intramuscular 11/26/2018 Administered Fluarix Quadrivalent IM Intramuscular 07/20/2019 Administe red Shingrix IM Intramuscular 08/24/2019 Administered Shingrix IM Intramuscular 10/25/2019 Administered Fluarix Quadrivalent IM Intramuscular 08/09/2020 Administe red Influenza High Dose IM Intramuscular 08/02/2021 Administer ed SARS-COV-2 Moderna Unknown 01/12/2021 Administered SARS-COV-2 Moderna Unknown 02/09/2021 Administered SARS-COV-2 Pfizer Unknown 08/16/2021 Administered Influenza High Dose IM Intramuscular 07/26/2022 Administer ed Fluarix Quadrivalent IM Intramuscular 08/05/2023 Administe red Influenza High Dose IM Intramuscular 08/09/2025 [...] Problem Status W/U Status Risk Notes Problem 50590036 Lymphocytosis (D72.820) Active confirmed Problem 659429274 Mild intermitten t asthma without complication (J45.20) Active confirmed Problem 930825445 Migraine without aura and without status migrainosus, not intractable (G43.009) Active confirmed Problem 462923046 Neutropenia, unspecified type (D70.9) Active confirmed Problem 777786791 Osteopenia of spine (M85.88) Active confirmed Problem 69972379 PMR (polymyalgia rheumatica) (M35.3) Active confirmed Problem 529060198 Moderate persistent asthma with exacerbation (J45.41) Active confirmed Vital Signs Blood pressure diastolic 64 mm Hg 08/16/2025 herminio ght is up 2 pounds since 08-12-24 Height 66 in 08/16/2025 weight is up 2 pounds since 08-12-24 Blood pressure systolic 102 mm Hg 08/16/2025 weig ht is up 2 pounds since 08-12-24 Weight 162 lbs 08/16/2025 weight is up 2 pounds since 08-12-24 BMI 26.14 kg/m2 08/16/2025 weight is up 2 pounds since 08-12-24 Encounters Encounter Location Date Provider Diagnosis Darryl Peralta MD [address] [place] [id number] 08/09/2025 Darryl Peralta Lymphocytosis D72.82 0 and Encounter for administration of vaccine Z23 Darryl Peralta MD [address] [place] [id number] 08/16/2025 Darryl Peralta Elevated BUN R79.9 ; Migraine without aura and without status migrainosus, not intractable G43.009 ; Depression screening Z13.31 and Lymphocytosis D72.820 Assessments Encounter Date Diagnosis (ICD Code) Assessment Notes Treatment Notes Treatment Clinical Notes Section Notes 08/09/2025 Lymphocytosis (ICD-10 - D72.820) 08/09/2025 Encounter for administration of vaccine (ICD-10 - Z23) 08/16/2025 Elevated BUN (ICD-10 - R79.9) will continue to monitor, future labs pending 08/16/2025 Migraine without aura and without status migrainosus, not intractable (ICD-10 - G43.009) stable, will continue current regiment 08/16/2025 Depression screening (ICD-10 - Z13.31) negative screen 08/16/2025 Lymphocytosis (ICD-10 - D72.820) stable, will continue to monitor Plan Of Treatment Pending Test Test Name Order Date Electrocardiogram (EKG) 07/03/2017 Electrocardiogram (EKG) 07/16/2018 Complete Blood Count Auto Diff 5 Comprehensive Met. Panel 08/23/2025 Comprehensive [place]. Panel Fast Creatine Kinase Total 08/23/2025 MM screening mammo BI 08/06/2021 COVID-19 ID NOW (Cono-C) 08/23/2025 Influenza A B2 ID NOW (Cono-C) 5 Future Test Test Name Order Date BONE DENSITY DEXA 07/04/2021 Next Appt Details Provider Name:Darryl Starks ier, 02/13/2026 07:15:00 AM, [address] [place] [address], [address], [phone], Provider Name:Darryl Starks ier, 08/11/2026 07:15:00 AM, [address] [place] [address], [address], [phone], Provider Name:Darryl Starks ier, 08/18/2026 08:00:00 AM, [address] [place] [address], [address], [phone], Insurance Providers Payer Name Payer Address Payer Phone Subscriber Number Group Number Insured Name Patient Relationship to Insured Coverage Start Date Coverage End Date MEDICARE [employer] [place] [address] [place] [address] [id number] Riri Daniels Self - patient is the insured [employer] [address] [place], [place] [id number] [phone] [id number] Riri Daniels Self - patient is the insured Citizen Ins [address] [id number] Frances Riri Self - patient is the insured Medical (General) History Medical History History ICD Code 09/07/2013 Colonoscopy - repeat 10 years 05/17/2015 bone density - repeat 2 yrs don e 2019 repeat 2 yrs History of tinnitus cologard 2022 negative
--- OUTSIDE RECORDS SUMMARY | 2025-08-23 18:53 | XMS_ITS | Patient Health Record ---
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 Name Role Phone Kathryn DARNELL, Darryl Primary Care Provider Vandana Avelar Unavailable [phone] Allergies No Known Allergies Reason For Referral [...] W/U Status Risk Notes Problem Plantar wart (49222265) Plantar wart (B07.0) Active confirmed Vital Signs Blood pressure diastolic 60 mm Hg 04/12/2025 Height 5ft5in in 04/12/2025 Blood pressure systolic 110 mm Hg 04/12/2025 Weight 160 lbs 04/12/2025 BMI 26.62 kg/m2 04/12/2025 Encounters Encounter Location Date Provider Diagnosis [facility] [address] 10/12/2024 Vandana Perica Pain in right toe(s) M79.674 ; Onychomycosis B35.1 and Pain in left toe(s) M79.[address] [facility] [address] 04/12/2025 Vandana Perica Onychomycosis B35.1 ; Right foot pain M79.671 and Plantar wart B07.[address] [address] 10/12/2024 [facility] [address] 11/22/2024 Vandana Perica [facility] [address] 01/13/2025 Vandana Perica [facility] [address] 05/30/2025 Vandana Perica [facility] [address] 07/21/2025 Vandana Isaaca Assessments Encounter Date Diagnosis [...] Inc [address] [place] [address] [id number] Riri Daniels Self - patient is the insured [address] [place] [address] [address] [place] [address] [id number] Riri Daniels Self - patient is the insured Medical (General) History Medical History History ICD Code Arthritis asthma Cataracts Depression Headaches/Migraines Mumps Chicken pox Measles Surgical History Surgery Date(Month/Year) appendectomy 1950 tonsillectomy 1955
== END 2025-08-23 16:34 | disposition home or self-care (01) ==
PROVIDERS: Physician Assistant; Emergency Provider Student in an Organized Health Care Education/Training Program; PCP Internal Medicine
DX: M35.3 Polymyalgia rheumatica (principal); M19.072 Primary osteoarthritis, left ankle and foot; M19.071 Primary osteoarthritis, right ankle and foot; M19.041 Primary osteoarthritis, right hand; M19.042 Primary osteoarthritis, left hand; M16.0 Bilateral primary osteoarthritis of hip; Z11.52 Encounter for screening for COVID-19
CPT/HCPCS: 36415; 80053; 82550; 85025; 87502; 87635; 99282; 99283

== ENCOUNTER 2025-08-26 13:25 | Outpatient (AMB) | payer MEDICARE, BC, SELFPAY ==
[2025-08-26 13:28] VITALS: BP 130/80; PULSE 68; O2SAT 98; BMI 24.5
--- NOTE | 2025-08-26 13:28 | A.OFFVIS_ITS ---
Vital Signs 08/26/25 13:28 Height 5 ft 6 in Weight 152 lb 1.903 oz BMI 24.5 BP 130/80 Blood Pressure Location Lt brachial Position Sitting Pulse 68 Pulse Source Pulse Oximeter Pulse Oximetry (%) 98 Oxygen Delivery Method Room Air Intake Visit Reasons: arthritis flare follow up Intake Note: Patient presents for follow up on tenosynovitis today Accompanied by: Self / Same As Patient Allergies No Known Allergies Allergy (Verified 08/26/25 13:29) Medication List - Last Reconciled 08/26/25 by Kerry Londono MD acetaminophen ER (Tylenol Arthritis Pain) 1,300 mg PO Q12H PRN albuterol sulfate 90 mcg/actuation (Ventolin HFA) 2 puffs inhalation Q6H PRN aripiprazole (Abilify) 2.5 mg PO BEDTIME chqgsdh-xclzefzrllmhu-hpgddbpa 250-250-65 mg (Excedrin Extra Strength) 2 tabs PO Q6H PRN calcium carbonate-vitamin D3 600 mg-5 mcg (200 unit) 1 tab PO BID celecoxib (Celebrex) 200 mg PO BID docusate sodium (Colace) 100 mg PO DAILY lamotrigine 150 mg PO DAILY lifitegrast 5% (Xiidra) 1 drp ophthalmic (eye) BID melatonin mg PO .evening prednisone 20 mg PO DAILY sumatriptan succinate (Imitrex) 50 mg PO Q2-4H PRN therapeutic multivitamin 1 tab PO DAILY HPI Comments Details: Patient is a 74-year-old female with migraines, polymyalgia rheumatica, OA and osteopenia who presents today for follow-up. Interval History: Patient last seen 03/17/2025 with me. - Steroid injection helped CMC joints - Still has some ache to the base of bilateral CMC joints - Started an exercise program including weights - No prolonged headaches but does have a history of migraines, no vision changes, no stiffness to bilateral shoulders or hips Today - Not on any rheum medications - Had a flare of her sx: shoulder pain, hip pain and muscle aches - Went to the ED, and received prednisone 20mg with improvement in sx - Last time she received prednisone 2017 Rheumatologic History: Patient diagnosed with polymyalgia rheumatica 04/05/2017 after presenting with prolonged pain and stiffness in her shoulders and then found to have elevated inflammatory markers. Treated with prednisone until 02/03/2018 now on Celebrex b.i.d. since 05/06/2018 which she uses as needed. No recurrence of her symptoms of PMR. No evidence or symptoms of GCA. Alendronate since 2018 - 2024. Drug holiday Current Rheumatology Medication(s): Calcium and vitamin D Prednisone 20mg Celebrex 200mg bid [facility] Medical History (Updated 08/26/25 @ 14:04 by Kerry Londono MD) Asthma Migraine without aura Chronic tension type headache Arthritis Bipolar disorder De Quervain's disease (tenosynovitis) PMR (polymyalgia rheumatica) Surgical History Hx of eye surgery History of tonsillectomy Family History (Updated 05/26/25 @ 11:49 by Yamilet Marcelino MA) Maternal Aunt Colon cancer Daughter Headache Son Headache Social History Patient Tobacco Use Status: Never used Tobacco e-Cigarette/Vaping Use: Never Used Current occupational status: retired 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 Review of Systems Const Details: Review of Systems Constitutional: Denies fever, chills, weight loss ENT: Denies vision changes, eye pain or eye redness, dental caries, dry mouth GI: Denies nausea, vomiting, diarrhea, abdominal pain, change in BM Pulm: Denies SOB, BURGESS, hemoptysis, wheezing Cards: Denies chest pain, palpitations Skin: Denies Raynaud's, rash, nail changes, photosensitivity, DOOR ATTENDANT: Denies headaches, weakness, paresthesias, recurrent falls MSK: as per HPI All other systems reviewed and are unremarkable except noted above Physical Exam Exam Exam: Vital signs reviewed Physical Examination CONSTITUITIONAL Patient alert and cooperative. Well appearing and in no apparent painful distress MSK Hands * Right Hand: Able to make a fist. Mild swelling noted to fingers but tenderness to palpation of the MCPs, PIPs or DIPs. * Left Hand: Able to make a fist. Mild swelling noted to fingers but tenderness to palpation of the MCPs, PIPs or DIPs. * Herbedens nodes noted bilaterally Wrists * Right Wrist: Full ROM to flexion and extension. No swelling or TTP * Left Wrist: Full ROM to flexion and extension. No swelling or TTP Elbows * Right Elbow: Full ROM. No swelling or TTP. No TTP of the medial epicondyle. No TTP of the lateral epicondyle * Left Elbow: Full ROM. No swelling or TTP. No TTP of the medial epicondyle. No TTP of the lateral epicondyle Shoulders * Right shoulder: Full ROM. No swelling noted. No TTP of the AC joint. No TTP of the subacromial bursa. No TTP of the posterior shoulder * Left shoulder: Full ROM. No swelling noted. No TTP of the AC joint. No TTP of the subacromial bursa. No TTP of the posterior shoulder Knees * Right knee: Full ROM. No swelling noted. No TTP of the knee joint line. No TTP of pes anserine bursa * Left knee: Full ROM. No swelling noted. No TTP of the knee joint line. No TTP of pes anserine bursa. * Crepitations felt bilaterally Ankles * Right ankle: Good ankle dorsiflexion and plantar flexion. No swelling. No TTP of the ankle joint * Left ankle: Good ankle dorsiflexion and plantar flexion. No swelling. No TTP of the ankle joint Feet * Right foot: Negative squeeze test * Left foot: Negative squeeze test Tender points? * No tenderness to palpation of the bilateral trapezius, supraspinatus, anterior costochondral junctions, bilateral suboccipital muscle insertions SKIN No rashes Vital Signs: Last Vital Signs Pulse 68 08/26/25 13:28 BP 130/80 08/26/25 13:28 Pulse Ox 98 08/26/25 13:28 Oxygen Delivery Method Room Air 08/26/25 13:28 BMI result Body Mass Index 24.5 Results Reviewed Results Reviewed: Laboratory Tests 03/17/25 08/23/25 11:20 15:09 WBC 5.2 RBC 3.79 L Hgb 11.2 L Hct 33.1 L Plt Count 214 Sodium 142 Potassium 4.5 Chloride 108 Carbon Dioxide 27 BUN 15 Creatinine 0.95 AST 20 ALT 13 Alkaline Phosphatase 50 25-OH Vitamin D Total 51 DEXA 08/2023 FINDINGS: LEFT FEMUR, NECK: Current: BMD 0.769 g/cm2, Z-score -0.2, T-score -1.9, osteopenia. Prior: BMD 0.869 g/cm2. Baseline: BMD 0.929 g/cm2. LEFT FEMUR, TOTAL: Current: BMD 0.810 g/cm2, Z-score -0.1, T-score -1.6, osteopenia, 6.1% decrease from previous, 14.0% decrease from baseline (<5% change is not significant). Prior: BMD 0.863 g/cm2. Baseline: BMD 0.942 g/cm2. AP SPINE L1-L2 (excluding L3 and L4): The data of L1-L4 has been changed to exclude the L3 and L4 vertebral bodies, because increased degenerative sclerosis at these levels may cause overestimation of lumbar spine density. Current: BMD 0.968 g/cm2, Z-score -0.2, T-score -1.6, osteopenia, 0.7% increase from previous, 6.5% decrease from baseline (<5% change is not significant). Prior: BMD 0.961 g/cm2. Baseline: BMD 1.035 g/cm2. Assessment & Plan Assessment & Plan (1) PMR (polymyalgia rheumatica): Comment: Diagnosed in 2016, completed steroid course in 2017. And in remission since then Relapse 08/2025, steroids restarted Code(s): M35.3 - Polymyalgia rheumatica Category: Medical Plan: #PMR Patient is a 75-year-old female with polymyalgia rheumatica here today for follow up. Patient has been in remission and off steroids since 2018 however is currently in a flare of her disease as evidenced by worsening shoulder stiffness and myalgias. She is post ED follow up. Responded well to prednisone 20 mg. Had a long discussion with patient about next steps 1. Repeating a prednisone taper 2. Starting further immunosuppression with Kevzara Given that the patient does not have any contraindications to steroid use such as diabetes, glaucoma or any other concerns at this time I think we can do a slow prednisone taper again. If during this time we get return of symptoms while trying to taper then we will need to switch to immunosuppression with Kevzara. Patient is in agreement with this plan Plan - Prednisone 20mg for an additional 3 weeks then 15 mg for 4 weeks then 10 mg for 4 weeks then 9 mg for 4 weeks - RTC 3.5 months - Labs before visit: CBC, CMP, ESR, CRP (2) Osteopenia: Comment: DEXA 07/2021: AP Spine L1-L2 -1.7, Left femur neck -1.2, Left femur total -1.1 DEXA 08/2023: AP Spine L1-L2 -1.6, Left femur neck -1.9, Left femur total -1.6 Alendronate 06/18/2019-11/2024. Drug Holiday Code(s): M85.80 - Other specified disorders of bone density and structure, unspecified site Category: Medical Qualifiers: Osteopenia location: multiple sites Qualified Code(s): M85.89 - Other specified disorders of bone density and structure, multiple sites Plan: #Osteopenia Patient currently on a drug holiday from alendronate. 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 of systemic steroids: Code(s): Z79.52 - manager intermediate (current) use of systemic steroids Plan: .#Long-term Use of Steroids Discussed with patient the risks and benefits of steroid for managing the rheumatic condition Benefits include: - Reduced pain, improved mobility, increased participation in activities, and decreased progression of disease Risks include: - GI upset, potential ultrasound worsening or formation (especially in patients > 65 years old), elevated blood pressure/worsening hypertension, elevated blood sugar/worsening diabetes control, worsening of bone density, elevated lipids/worsening triglycerides, cataract formation, weight gain Recommended using proton pump inhibitors (PPIs) for the duration of steroid use to reduce the risk of gastric ulcers and vitamin-D daily to reduce the risk of osteoporosis Labs checked: ?A1c, T spot, hepatitis-B and C serologies Pneumocystis jiroveci prophylaxis: ?Patient with risk factors including steroids greater than 50 mg for more than 30 days, age greater than 60 years, and lung involvement from underlying rheumatic disease requires prophylaxis and will be given so Plan For this post ED follow up patient. I spent 40 minutes reviewing the record and labs, taking a history, examining the patient, discussing the treatment plan, ordering diagnostic work up and documenting in the medical record Orders: Orders XR DEXA axial skeleton Today M81.0 - Age-related osteoporosis without current pathological fracture Medications: New prednisone To be taken with 5 mg tablets once you have tapered to one 5mg tablet so that you decrease from 10mg to 9mg 4 mg (4 x 1 mg) PO DAILY 112 tabs 0RF 4 weeks M35.3 - Polymyalgia rheumatica prednisone Take 4 tablets daily for 21 days then 3 tablets daily for 28 days then 2 tablets daily for 28 days then 1 tablet daily for 28 days 5 mg PO DIRECTED 252 tabs 0RF M35.3 - Polymyalgia rheumatica prednisone Take 4 tablets daily for 21 days then 3 tablets daily for 28 days then 2 tablets daily for 28 days then 1 tablet daily (this should be taken with 4mg of prednisone for a total of 9mg) for 28 days 5 mg PO DIRECTED 252 tabs 0RF M35.3 - Polymyalgia rheumatica Discontinued prednisone Discontinued Reason: Doctor's Order 20 mg PO DAILY 7 tabs 0RF Coding Level of Care Code Est Pt Level 5 (34823) Complex EM visit Add On G2211 Diagnoses PMR (polymyalgia rheumatica) M35.3 Osteopenia of multiple sites M85.89 Osteopenia location: multiple sites manager intermediate current use of systemic steroids Z79.52
== END 2025-08-26 14:03 | disposition home or self-care (01) ==
LOC: HO.RHES 13:25
PROVIDERS: PCP Internal Medicine; Visit Provider Student in an Organized Health Care Education/Training Program
DX: M35.3 Polymyalgia rheumatica (principal); M85.89 Other specified disorders of bone density and structure, multiple sites; Z79.52 Long term (current) use of systemic steroids
CPT/HCPCS: 99215; G2211

== ENCOUNTER → 2025-08-26 13:25 | Outpatient (BNVA) | payer MEDICARE, BC, SELFPAY | PROVIDERS: PCP Internal Medicine; Visit Provider Student in an Organized Health Care Education/Training Program | DX: M35.3 Polymyalgia rheumatica (principal); M85.89 Other specified disorders of bone density and structure, multiple sites; M25.50 Pain in unspecified joint; Z79.52 Long term (current) use of systemic steroids | CPT/HCPCS: 99212 ==

== ENCOUNTER 2025-11-04 10:52 | Outpatient (REF) | payer MEDICARE, BC, SELFPAY ==
--- OUTSIDE RECORDS SUMMARY | 2024-08-05 03:30 | XMS_ITS ---
Author Organization Darryl Peralta MD Address [address] [place], [place] [id number] Care Team Providers Care Pot Washer Name Role Phone Darryl Peralta Primary Care Provider Results Component Value Reference Range Notes Complete Blood Count Auto Di ff Reviewed date:08/05/2024 12:15:24 PM Interpretation: Performing Lab:[facility], [address] [place] [phone] Notes/Report: White Blood Count 4.4 4.8-10.8 X10*3/uL Red Blood Count 3.93 4.20-5.50 X10*6/uL Hemoglobin 12.3 12.0-16.0 g/dl Hematocrit 36.0 37.0-47.0 % Mean Corpuscular Volume 91.6 80.0-98.0 fL Mean Corpuscular Hemoglobin 31.3 27.0-33.0 pg Mean Corpuscular HGB Conc 34.2 31.0-35.0 g/dl Red Cell Distribution Width 13.3 11.0-16.0 % Platelet Count 188 160-400 X10*3/uL Mean Platelet Volume 9.3 9.4-12.3 fL Neutrophils Percent Auto 44.3 45-73 % Imm Gran Pct Auto 0.0 0.0-0.4 % Lymphocytes Percent Auto 47.3 20-40 % Monocytes Percent Auto 6.6 2-11 % Eosinophils Percent Auto 1.1 0-4 % Basophils Percent Auto 0.7 0-2 % NRBC Pct Auto 0.0 0.0-0.2 /100WBC Neutrophils Absolute Auto 1.9 2.0-8.3 x10*3/u L Imm Gran Abs Auto 0.00 0.00-0.03 X10*3/uL Lymphocytes Absolute Auto 2.1 1.2-4.9 X10*3/u L Monocytes Absolute Auto 0.3 0.1-1.2 X10*3/uL Eosinophils Absolute Auto 0.1 0.0-0.4 X10*3/u L Basophils Absolute Auto 0.0 0.0-0.2 X10*3/uL NRBC Abs Auto 0.000 0.0-0.012 X10*3/uL Comprehensive [place]. Panel Fa Reviewed date:08/05/2024 12:53:24 PM Interpretation: Performing Lab:[address] [phone] Notes/Report: Sodium 144 135-145 mmol/L Potassium 4.3 3.3-5.1 mmol/L Chloride 109 96-108 mmol/L Carbon Dioxide 26 22-29 mmol/L Anion Gap 13 12-20 Blood Urea Nitrogen 15 9-16 mg/dL Creatinine 0.86 0.5-1.4 mg/dL Estimated Glomerular Filt Rate > 60 NOTE: For -[place]ian individuals, multiply the result by 1.210. Chronic Kidney Disease: Estimated GFR < 60 mL/min/1.73m2 Severe Kidney Disease: Estimated GFR < 15 mL/min/1.73m2 Glucose Fasting 90 60-99 mg/dL Calcium 9.5 8.4-10.2 mg/dL Bilirubin Total 0.9 0.0-1.0 mg/dL Aspartate Amino Transferase 24 5-31 U/L Alanine Aminotransferase 19 0-31 U/L Total Protein 6.9 6.5-8.0 g/dL Albumin Level 4.0 3.5-5.0 g/dL Alkaline Phosphatase 33 39-117 U/L Lipid Panel Reviewed date:08/05/2024 12:33:35 PM Interpretation: Performing Lab:[facility], [address] [place] [phone] Notes/Report: Triglycerides 91 <150 mg/dL Desirable Triglyceride: less than 150 mg/dL Borderline High Triglyceride 150-199 mg/dL High Triglyceride: 200-499 mg/dL Very High Triglyceride: greater than or equal to 5OO mg/dL Cholesterol 181 <200 mg/dL Desirable Cholesterol: less than 200 mg/dL Borderline High Cholesterol: 200-239 mg/dL High Cholesterol: greater than 239 mg/dL LDL Cholesterol Calculated 108 <100 mg/dL Desirable LDL: less than 100 mg/dL Near Optimal/Above Optimal LDL: 110-129 mg/dL Borderline High LDL: 130-159 mg/dL High LDL: 160-189 mg/dL Very High LDL: greater than or equal to 190 mg/dL HDL Cholesterol 55 >40 mg/dL Desirable HDL: greater than 40 mg/dL Note: This HDL assay may give artificially low results in patients with liver disease. UA ClnCatch+Micro w/rflx Cul t Reviewed date:08/05/2024 03:09:28 PM Interpretation: Performing Lab:[facility], [address] [place] [phone] Notes/Report: Urine, Clean Catch Color Urine Yellow Appearance Urine Clear PH 5.5 5.0-9.0 Glucose Urine UA Negative Negative mg/dL Urine Blood Negative Negative Specific [place] - Urine 1.010 1.005-1.025 Urine Protein Negative Neg-Trace mg/dL Urine Ketones Negative Negative mg/dL Nitrite Urine Negative Negative Leukocyte Esterase Urine Negative Negative RBC Urine 0-2 0-2 /HPF WBC Urine 0-5 0-5 /HPF Squamous Epithelial Cell Urine 0-2 0-2 /HPF Bacteria Urine None Seen None Seen Hyaline Casts Urine 0-2 0-2 /LPF REASON FOR VISIT FASTING LABS Encounters Encounter Location Date Provider Diagnosis Darryl Peralta MD [address] [place] [address] [place] [phone] 08/05/2024 Darryl Peralta Lymphocytosis D72.82 0 Assessments Encounter Date Diagnosis (ICD Code) Assessment Notes Treatment Notes Treatment Clinical Notes Section Notes 08/05/2024 Lymphocytosis (ICD-10 - D72.820) Plan Of Treatment Next Appt Details Provider Name:Darryl bahena, 02/13/2026 07:15:00 AM, [address] [place] [address], [address], [phone], Provider Name:Darryl bahena, 08/11/2026 07:15:00 AM, [address] [place] [address], [address], [phone], Provider Name:Darryl Starks ier, 08/18/2026 08:00:00 AM, [address], [address], [place], [phone], Progress Notes * Riri CHAPMAN MDOB: [birth year] (75 yo F)Acc No.[id number]:08/05/2024 Progress Note Patient: Riri BUTLER Provider: Lanre Peralta MD :1950 A ge:74 Y S ex:Female Date:08/05/2024 Address:[address] [place] [address] Subjective: * Chief Complaints: * 1 . FASTING LABS. * Medical History: Objective: * Vitals: Assessment: * Assessment: 1. L ymphocytosis - D72.820 (Primary) Plan: * Treatment: * Procedure Codes: 3 6415 VENIPUNCT, ROUTINE* * * The named appointment provid er may or may not be the originator of this progress note, and it is not deemed complete until electronically signed by the appointment provider. Sign off status: Pending * Provider: Lanre Peralta MD Date: 0 08/05/2024 Generated for Caesar godoy/Isabel/Oliviaitting on: 01/05/2025 12:42 PM EST
--- OUTSIDE RECORDS SUMMARY | 2024-08-12 03:30 | XMS_ITS ---
Author Organization Darryl Peralta MD Address [address] [place], [place] [id number] Care Team Providers Care Emergency Planner Name Role Phone Darryl Peralta Primary Care Provider Allergies No Known Allergies REASON FOR VISIT review labs, c/o Insomnia Medications Medication SIG (Take, Route, Frequency, Duration) Notes Start Date End Date Status Colace 100 MG 1 capsule as needed Orally Bid Not-Taking Tylenol Arthritis Pain 650 MG 2 tablets as needed Orally every 8 hrs Not-Taking Imitrex 100 MG 1 tablet Orally as needed Not-Taking ProAir HFA 108 (90 Base) MCG/ACT 2 puffs as needed Inhalation every 4 hrs for 30 days Not-Taking Topiramate 50 MG 1 tablet Orally at bedtime Not-Taking Alendronate Sodium 70 MG 1 tablet Orally once a week (friday') Active Calcium + D 500-1000-40 MG-UNT-MCG 1 tablet with food Orally Twice a day Active Melatonin 5 MG 1 tablet at bedtime as needed with food Orally Once a day Active Multivitamin Adult 1 tablet Orally once a day Active lamoTRIgine 150 MG 1 tablet Orally Once a day for 30 day(s) Active ARIPiprazole 5 MG 0.5 tab Orally Once a day Active Social History Tobacco Use: Social History Observation Description Date Details (start date - stop date) Never Smoker NA - NA Tobacco Use/Smoking Question Answer Notes Patient is a nonsmoker Additional Findings: Tobacco Non-User Cu rrent non-smoker, currently using no form of tobacco Alcohol Screen Question Answer Notes Did you have a drink containing alcohol in the p ast year? No Points 0 Interpretation Negative Problems Problem Type SNOMED Code ICD Code Onset Dates Problem Status W/U Status Risk Notes Problem [id number] Neutropenia, unspecified type (D70.9) Active confirmed Vital Signs Blood pressure systolic 116 mm Hg 08/12/20 24 Blood pressure diastolic 62 mm Hg 024 Height 66 in 08/12/2024 Weight 160 lbs 08/12/2024 BMI 25.82 kg/m2 08/12/2024 weight is down 6 pounds formerly [facility], later [facility] 08-11-23 Encounters Encounter Location Date Provider Diagnosis Darryl Peralta MD [address] [place] [address] [address] [place], [place] [id number] 08/12/2024 Darryl Peralta Neutropenia, unspecified type D70.9 ; Lymphocytosis D72.820 ; Migraine without aura and without status migrainosus, not intractable G43.009 and Depression screening Z13.31 Assessments Encounter Date Diagnosis (ICD Code) Assessment Notes Treatment Notes Treatment Clinical Notes Section Notes 08/12/2024 Neutropenia, unspecified type (ICD-10 - D70.9) pending labs 08/12/2024 Lymphocytosis (ICD-10 - D72.820) has been chronic, will continue to monitor 08/12/2024 Migraine without aura and without status migrainosus, not intractable (ICD-10 - G43.009) followed by dr yanez 08/12/2024 Depression screening (ICD-10 - Z13.31) negative screen 08/12/2024 Other Total time spent on the date of the encounter is 35 minutes including both face to face time spent and time spent reviewing documentation, and counseling the patient. Plan Of Treatment Treatment Notes Assessment Notes Neutropenia, unspecified type pending la bs Lymphocytosis has been chronic, wi ll continue to monitor Migraine without aura and wi thout status migrainosus, not intractable followed by dr yanez Depression screening negative screen Other Total time spent on the date of the encounter is 35 minutes including both face to face time spent and time spent reviewing documentation, and counseling the patient. Next Appt Details Follow Up: 1 Year, Reason: Provider Name:Darryl bahena, 02/13/2026 07:15:00 AM, [address] [place] [address], [address], [place], [place], [id number], Provider Name:Darryl bahena, 08/11/2026 07:15:00 AM, [address], [address], [place], [place], [id number], Provider Name:Darryl Starks ier, 08/18/2026 08:00:00 AM, [address], [address], [place], [id number], Progress Notes * Riri CHAPMAN MDOB: [birth year] (74 yo F)Acc No.[id number]:08/12/2024 Patient: Riri Morley Provider: Lanre Peralta MD :1950 A ge:74 Y S ex:Female Date:08/12/2024 Address:[address] [place] [address] [id number] Subjective: * Chief Complaints: * R eview labsc/o Insomnia * HPI: D epression Screening: PHQ-9 L ittle interest or pleasure in doing things N ot at all, F eeling down, depressed, or hopeless N ot at all, T rouble falling or staying asleep, or sleeping too much N ot at all, F eeling tired or having little energy N ot at all, P oor appetite or overeating N ot at all, F eeling bad about yourself or that you are a failure, or have let yourself or your family down N ot at all, T rouble concentrating on things, such as reading the newspaper or watching television N ot at all, M oving or speaking so slowly that other people could have noticed; or the opposite, being so fidgety or restless that you have been moving around a lot more than usual N ot at all, T houghts that you would be better off or of hurting yourself in some way N ot at all, T otal Score 0 . C ommunication Needs: Communication Needs D oes the patient have a hearing impairment N o, D oes the patient have a vision impairment? Y es, I f yes, what is the vision impairment? G lasses, D oes the patient have a cognition impairment? N o. F all Risk: History H ave you had any falls with injury in the past year? N o, H ave you had two or more falls in the past year? N o. S HEN[place] Questions: SDOH Questions I n the past year have you been worried about losing housing? N o, I n the past year have you or any family members you live with been unable to get any of the following when it was really needed? Check all that apply: N one. S ymptom(s): patient is a 74 yo female here for review of recent labs and follow up of chronic issues, has trouble sleeping. almost nightly. has been a long time. * ROS: G eneral/Constitutional: Patient denies c hills , fever , headache. E NT: Patient denies d ecreased sense of smell , any loss of taste , sore throat. R espiratory: Patient denies s hortness of breath at rest shortness of breath with exertion. C ardiovascular: Patient denies c hest pain with exertion chest pain at rest. G astrointestinal: Patient denies c hange in bowel habits. G enitourinary: Patient denies f requent urination difficulty urinating.? M usculoskeletal: Patient denies m uscle aches. P eripheral Vascular: Patient denies r ed and blue toes. * Medical History: * Surgical History: * Hospitalization/Major Diagno stic Procedure: * Family History: F ather: 48 yrs. M other: 92 yrs. 3 brother(s) , 3 sister(s) . 2 son(s) , 2 daughter(s) . . Father-Renal Failure Mother-CHF COPD 1 brother-Renal Failure, Denies mental health/substance abuse family history, Denies mental health/substance abuse family history, Denies mental health/substance abuse family history, No pertinent family medical history, No pertinent family medical history. * Social History: T obacco Use: T obacco Use/Smoking P atient is a n onsmoker, A dditional Findings: Tobacco Non-User C urrent non-smoker, currently using no form of tobacco. D rugs/Alcohol: A lcohol Screen D id you have a drink containing alcohol in the past year? N o, P oints 0 , I nterpretation N egative. M iscellaneous: C affeine: yes, frequency:, 1 cup of tea per day. Children: yes. Community involvements: yes. no Exercise, 4-5 times a week 3 miles. Home smoke detector use: yes. Housing: owning. Living with: spouse. Marital status: . Occupation: retired. Pets: 1 cat. no Travel outside of the [place]. * Medications: T akingARIPiprazole 5 MG Tablet 0.5 tab Orally Once a daylamoTRIgine 150 MG Tablet 1 tablet Orally Once a dayMultivitamin Adult Tablet 1 tablet Orally once a dayMelatonin 5 MG Tablet 1 tablet at bedtime as needed with food Orally Once a dayCalcium + D 500-1000-40 MG-UNT-MCG Tablet Chewable 1 tablet with food Orally Twice a dayAlendronate Sodium 70 MG Tablet 1 tablet Orally once a week ()Taking ARIPiprazole 5 MG Tablet 0.5 tab Orally Once a dayTaking lamoTRIgine 150 MG Tablet 1 tablet Orally Once a dayTaking Multivitamin Adult Tablet 1 tablet Orally once a dayTaking Melatonin 5 MG Tablet 1 tablet at bedtime as needed with food Orally Once a dayTaking Calcium + D 500-1000-40 MG-UNT-MCG Tablet Chewable 1 tablet with food Orally Twice a dayTaking Alendronate Sodium 70 MG Tablet 1 tablet Orally once a week ()Not-Taking/PRNTopiramate 50 MG Tablet 1 tablet Orally at bedtimeProAir HFA 108 (90 Base) MCG/ACT Aerosol Solution 2 puffs as needed Inhalation every 4 hrsImitrex 100 MG Tablet 1 tablet Orally as neededTylenol Arthritis Pain 650 MG Tablet Extended Release 2 tablets as needed Orally every 8 hrsColace 100 MG Capsule 1 capsule as needed Orally BidNot-Taking/PRN Topiramate 50 MG Tablet 1 tablet Orally at bedtimeNot-Taking/PRN ProAir HFA 108 (90 Base) MCG/ACT Aerosol Solution 2 puffs as needed Inhalation every 4 hrsNot-Taking/PRN Imitrex 100 MG Tablet 1 tablet Orally as neededNot-Taking/PRN Tylenol Arthritis Pain 650 MG Tablet Extended Release 2 tablets as needed Orally every 8 hrsNot-Taking/PRN Colace 100 MG Capsule 1 capsule as needed Orally BidDiscontinuedDivalproex Sodium ER 250 MG Tablet Extended Release 24 Hour 1 tablet Orally Once a dayMedication List reviewed and reconciled with the patientDiscontinued Divalproex Sodium ER 250 MG Tablet Extended Release 24 Hour 1 tablet Orally Once a dayMedication List reviewed and reconciled with the patient * Allergies: N .K.D.A.yes[Allergies Verified] Objective: * Vitals: H t: 66, Wt:160, BMI:25.82, BP:116/62 weight is down 6 pounds since 08-11-23. * P ast Orders: L ab:Complete Blood Count Auto Diff (Order Date - 08/05/2024) (Collection Date - 08/05/2024) Value Reference Range White Blood Count 4.4 L 4.8-10.8 - X10*3/uL Red Blood Count 3.93 L 4.20-5.50 - X10*6/uL Hemoglobin 12.3 12.0-16.0 - g/dl Hematocrit 36.0 L 37.0-47.0 - % Mean Corpuscular Volume 91.6 80.0-98.0 - fL Mean Corpuscular Hemoglobin 31.3 27.0-33.0 - pg Mean Corpuscular HGB Conc 34.2 31.0-35.0 - g/ dl Red Cell Distribution Width 13.3 11.0-16.0 - % Platelet Count 188 160-400 - X10*3/uL Mean Platelet Volume 9.3 L 9.4-12.3 - fL Neutrophils Percent Auto 44.3 L 45-73 - % Imm Gran Pct Auto 0.0 0.0-0.4 - % Lymphocytes Percent Auto 47.3 H 20-40 - % Monocytes Percent Auto 6.6 2-11 - % Eosinophils Percent Auto 1.1 0-4 - % Basophils Percent Auto 0.7 0-2 - % NRBC Pct Auto 0.0 0.0-0.2 - /100WBC Neutrophils Absolute Auto 1.9 L 2.0-8.3 - x10* 3/uL Imm Gran Abs Auto 0.00 0.00-0.03 - X10*3/uL Lymphocytes Absolute Auto 2.1 1.2-4.9 - X10* 3/uL Monocytes Absolute Auto 0.3 0.1-1.2 - X10*3/ uL Eosinophils Absolute Auto 0.1 0.0-0.4 - X10* 3/uL Basophils Absolute Auto 0.0 0.0-0.2 - X10*3/ uL NRBC Abs Auto 0.000 0.0-0.012 - X10*3/uL L ab:Comprehensive [place]. Panel Fast (Order Date - 08/05/2024) (Collection Date - 08/05/2024) Value Reference Range Sodium 144 135-145 - mmol/L Bilirubin Total 0.9 0.0-1.0 - mg/dL Aspartate Amino Transferase 24 5-31 - U/L Alanine Aminotransferase 19 0-31 - U/L Total Protein 6.9 6.5-8.0 - g/dL Albumin Level 4.0 3.5-5.0 - g/dL Alkaline Phosphatase 33 L 39-117 - U/L Potassium 4.3 3.3-5.1 - mmol/L Chloride 109 H 96-108 - mmol/L Carbon Dioxide 26 22-29 - mmol/L Anion Gap 13 12-20 - Blood Urea Nitrogen 15 9-16 - mg/dL Creatinine 0.86 0.5-1.4 - mg/dL Estimated Glomerular Filt Rate > 60 - Glucose Fasting 90 60-99 - mg/dL Calcium 9.5 8.4-10.2 - mg/dL L ab:Lipid Panel (Order Date - 08/05/2024) (Collection Date - 08/05/2024) Value Reference Range Triglycerides 91 <150 - mg/dL Cholesterol 181 <200 - mg/dL LDL Cholesterol Calculated 108 H <100 - mg/dL HDL Cholesterol 55 >40 - mg/dL L ab:UA ClnCatch+Micro w/rflx Cult (Order Date - 08/05/2024) (Collection Date - 08/05/2024) Value Reference Range Color Urine Yellow - Appearance Urine Clear - PH 5.5 5.0-9.0 - Glucose Urine UA Negative Negative - mg/dL Urine Blood Negative Negative - Specific [place] - Urine 1.010 1.005-1.025 - Urine Protein Negative Neg-Trace - mg/dL Urine Ketones Negative Negative - mg/dL Nitrite Urine Negative Negative - Leukocyte Esterase Urine Negative Negative - RBC Urine 0-2 0-2 - /HPF WBC Urine 0-5 0-5 - /HPF Squamous Epithelial Cell Urine 0-2 0-2 - /HP F Bacteria Urine None Seen None Seen - Hyaline Casts Urine 0-2 0-2 - /LPF * Examination: G eneral Examination: GENERAL APPEARANCE: alert, well hydrated, in no distress . HEAD: normocephalic. EYES: BOTH EYES, normal. EARS: BOTH EARS, normal. THROAT: no erythema, no exudate, pharynx normal. NECK/THYROID: no carotid bruit, no cervical lymphadenopathy. SKIN: good turgor, no suspicious lesions. HEART: no murmurs, rubs, gallops. LUNGS: no wheezes, rales, rhonchi, good air movement, clear to auscultation bilaterally. BREASTS: declined. ABDOMEN: soft, nontender, nondistended, no rebound tenderness, no organomegaly . RECTAL EXAM: declined. Assessment: * Assessment: 1. N eutropenia, unspecified type - D70.9 (Primary) 2 . L ymphocytosis - D72.820 3 . M igraine without aura and without status migrainosus, not intractable - G43.009 4 . D epression screening - Z13.31 Plan: * Treatment: 2. L ymphocytosis Notes: has been chronic, will continue to monitor 3. M igraine without aura and without status migrainosus, not intractable Notes: followed by dr yanez 4. D epression screening Notes: negative screen 5. O thers Notes: Total time spent on the date of the encounter is 35 minutes including both face to face time spent and time spent reviewing documentation, and counseling the patient. * Procedure Codes: * Follow Up: 1 Year * * Sign off status: Completed true * Provider: Lanre Peralta MD Date: 0 08/12/2024 Generated for Caesar godoy/Isabel/Angelasmitting on: 1 01/05/2025 12:42 PM EST History and Physical Notes * HPI (History of Present Illness) Category Sub-Category Detail Notes Category Not es Symptom(s) patient is a 74 yo female here for review of recent labs and follow up of chronic issues, has trouble sleeping. almost nightly. has been a long time Depression Screening PHQ-9 Little inte rest or pleasure in doing things: Not at all Feeling down, depressed, or hopeless: No t at all Trouble falling or staying asleep, or sl eeping too much: Not at all Feeling tired or having little energy: N ot at all Poor appetite or overeating: Not at all Feeling bad about yourself o r that you are a failure, or have let yourself or your family down: Not at all Trouble concentrating on thi ngs, such as reading the newspaper or watching television: Not at all Moving or speaking so slowly that other people could have noticed; or the opposite, being so fidgety or restless that you have been moving around a lot more than usual: Not at all Thoughts that you would be b michelle off or of hurting yourself in some way: Not at all Total Score: 0 SDOH Questions SDOH Questions In the past year have you been worried about losing housing?: No In the past year have you or any family members you live with been unable to get any of the following when it was really needed? Check all that apply:: None Fall Risk History Have you had any falls with injury i n the past year?: No Have you had two or more falls in the year?: No Communication Needs Communication Needs Does the patient have a hearing impairment: No Does the patient have a vision impairmen t?: Yes If yes, what is the vision impairment?: Glasses Does the patient have a cognition impair ment?: No Examination Category Sub-Category Detail Notes Category Not es General Examination GENERAL APPEARANCE: alert, w ell hydrated, in no distress HEAD: normocephalic EYES: BOTH EYES, normal EARS: BOTH EARS, normal THROAT: no erythema, no exud ate, pharynx normal NECK/THYROID: no carotid bruit, no cervical lymphadenopathy HEART: no murmurs, rubs, ga llops LUNGS: no wheezes, rales, r honchi, good air movement, clear to auscultation bilaterally ABDOMEN: soft, nontender, non distended, no rebound tenderness, no organomegaly SKIN: good turgor, no susp icious lesions BREASTS: declined RECTAL EXAM: declined
--- OUTSIDE RECORDS SUMMARY | 2024-10-12 03:15 | XMS_ITS ---
Author Organization Darryl Peralta MD Address [address] [place] [phone] Care Team Providers Care Model Home Sales Greeter Name Role Phone Darryl Peralta Primary Care Provider [phone] REASON FOR VISIT CBC AUTO DIFF Encounters Encounter Location Date Provider Diagnosis Darryl Peralta MD [address] [place] [address] [phone] 10/12/2024 Darryl Peralta Neutropenia, unspecified type D70.9 Assessments Encounter Date Diagnosis (ICD Code) Assessment Notes Treatment Notes Treatment Clinical Notes Section Notes 10/12/2024 Neutropenia, unspecified type (ICD-10 - D70.9) Plan Of Treatment Next Appt Details Provider Name:Darryl bahena, 02/13/2026 07:15:00 AM, [address] [place] [address], [phone], Provider Name:Darryl bahena, 08/11/2026 07:15:00 AM, [address] [place] [address], [phone], Provider Name:Darryl bahena, 08/18/2026 08:00:00 AM, [address] [place] [address], [phone], Progress Notes * Olivia CHAPMAN MDOB: [birth year] (75 yo F)Acc No.[id number]:10/12/2024 Progress Note Patient: Olivia BUTLER Provider: Lanre Peralta MD :1950 A ge:74 Y S ex:Female Date:10/12/2024 Address:[address] [place] [address] [facility] [place] [place] Subjective: * Chief Complaints: * 1 . CBC AUTO DIFF. * Medical History: Objective: * Vitals: Assessment: * Assessment: 1. N eutropenia, unspecified type - D70.9 Plan: * Treatment: * * The named appointment provid er may or may not be the originator of this progress note, and it is not deemed complete until electronically signed by the appointment provider. Sign off status: Pending * Provider: Lanre Peralta MD Date: 12/12/2023 Generated for Caesar godoy/Isabel/Oliviaitting on: 01/05/2025 12:43 PM EST
--- OUTSIDE RECORDS SUMMARY | 2025-08-09 02:15 | XMS_ITS ---
Author Organization Darryl Peralta MD Address [address] [place], [place] [phone] Care Team Providers Care Side Seam Machine Operator Name Role Phone Darryl Peralta Primary Care Provider Results Component Value Reference Range Notes Complete Blood Count Auto Di ff Reviewed date:08/09/2025 12:25:35 PM Interpretation: Performing Lab:[facility], [address] [place] [phone] Notes/Report: White Blood Count 5.2 4.8-10.8 X10*3/uL Red Blood Count 4.03 4.20-5.50 X10*6/uL Hemoglobin 12.0 12.0-16.0 g/dl Hematocrit 35.7 37.0-47.0 % Mean Corpuscular Volume 88.6 80.0-98.0 fL Mean Corpuscular Hemoglobin 29.8 27.0-33.0 pg Mean Corpuscular HGB Conc 33.6 31.0-35.0 g/dl Red Cell Distribution Width 13.3 11.0-16.0 % Platelet Count 232 160-400 X10*3/uL Mean Platelet Volume 9.3 9.4-12.3 fL Neutrophils Percent Auto 45.7 45-73 % Imm Gran Pct Auto 0.2 0.0-0.4 % Lymphocytes Percent Auto 43.5 20-40 % Monocytes Percent Auto 7.9 2-11 % Eosinophils Percent Auto 1.9 0-4 % Basophils Percent Auto 0.8 0-2 % NRBC Pct Auto 0.0 0.0-0.2 /100WBC Neutrophils Absolute Auto 2.4 2.0-8.3 x10*3/u L Imm Gran Abs Auto 0.01 0.00-0.03 X10*3/uL Lymphocytes Absolute Auto 2.3 1.2-4.9 X10*3/u L Monocytes Absolute Auto 0.4 0.1-1.2 X10*3/uL Eosinophils Absolute Auto 0.1 0.0-0.4 X10*3/u L Basophils Absolute Auto 0.0 0.0-0.2 X10*3/uL NRBC Abs Auto 0.000 0.0-0.012 X10*3/uL Lipid Panel Reviewed date:08/09/2025 12:29:27 PM Interpretation: Performing Lab:[facility], [address] [place] [phone] Notes/Report: Triglycerides 61 <150 mg/dL Desirable Triglyceride: less than 150 mg/dL Borderline High Triglyceride 150-199 mg/dL High Triglyceride: 200-499 mg/dL Very High Triglyceride: greater than or equal to 5OO mg/dL Cholesterol 180 <200 mg/dL Desirable Cholesterol: less than 200 mg/dL Borderline High Cholesterol: 200-239 mg/dL High Cholesterol: greater than 239 mg/dL LDL Cholesterol Calculated 120 <100 mg/dL Desirable LDL: less than 100 mg/dL Near Optimal/Above Optimal LDL: 110-129 mg/dL Borderline High LDL: 130-159 mg/dL High LDL: 160-189 mg/dL Very High LDL: greater than or equal to 190 mg/dL HDL Cholesterol 48 >40 mg/dL Desirable HDL: greater than 40 mg/dL Note: This HDL assay may give artificially low results in patients with liver disease. UA ClnCatch+Micro w/rflx Cul t Reviewed date:08/09/2025 06:22:56 PM Interpretation: Performing Lab:[facility], [address] [place] [phone] Notes/Report: Urine, Clean Catch Color Urine Yellow Appearance Urine Clear PH 5.5 5.0-9.0 Glucose Urine UA Negative Negative mg/dL Urine Blood Negative Negative Specific [place] - Urine 1.010 1.005-1.025 Urine Protein Negative Neg-Trace mg/dL Urine Ketones Negative Negative mg/dL Nitrite Urine Negative Negative Leukocyte Esterase Urine Negative Negative RBC Urine 0-2 0-2 /HPF WBC Urine 0-5 0-5 /HPF Squamous Epithelial Cell Urine 0-2 0-2 /HPF Bacteria Urine None Seen None Seen Hyaline Casts Urine 0-2 0-2 /LPF REASON FOR VISIT FASTING LABS Immunizations Vaccine Route Administration Date Status Comme nts Influenza High Dose IM Intramuscular 08/09/2025 Administer ed Encounters Encounter Location Date Provider Diagnosis Darryl Peralta MD [address] [place] [id number] 08/09/2025 Darryl Peralta Lymphocytosis D72.82 0 and Encounter for administration of vaccine Z23 Assessments Encounter Date Diagnosis (ICD Code) Assessment Notes Treatment Notes Treatment Clinical Notes Section Notes 08/09/2025 Lymphocytosis (ICD-10 - D72.820) 08/09/2025 Encounter for administration of vaccine (ICD-10 - Z23) Plan Of Treatment Pending Test Test Name Order Date Comprehensive [place]. Panel Fast Next Appt Details Provider Name:Darryl bahena, 02/13/2026 07:15:00 AM, [address] [place] [address], [address], [phone], Provider Name:Darryl bahena, 08/11/2026 07:15:00 AM, [address] [place] [address], [address], [phone], Provider Name:Darryl bahena, 08/18/2026 08:00:00 AM, [address] [place] [address], [address], [phone], Progress Notes * Riri CHAPMAN MDOB: [birth year] (75 yo F)Acc No.[id number]:08/09/2025 Progress Note Patient: Riri BUTLER Provider: Lanre Peralta MD :1950 A ge:75 Y S ex:Female Date:08/09/2025 Address:[address] [place] [address] janae [id number] Subjective: * Chief Complaints: * 1 . FASTING LABS. * Medical History: Objective: * Vitals: Assessment: * Assessment: 1. E ncounter for administration of vaccine - Z23 (Primary) 2 . L ymphocytosis - D72.820 Plan: * Treatment: * Immunizations: Influenza High Dose : 0.5 mL (Dose No:1) (Route: Intramuscular) given by Arcelia Israel , Office Staff on Left Deltoid * Procedure Codes: 9 0662 FLU VACC PRSV FREE INC ANTIG, 93007 VENIPUNCT, ROUTINE*, G0008 ADMN FLU VAC NO FEE SCHED SAME DAY * * The named appointment provid er may or may not be the originator of this progress note, and it is not deemed complete until electronically signed by the appointment provider. Sign off status: Pending * Provider: Lanre Peralta MD Date: 0 08/09/2025 Generated for Caesar godoy/Isabel/Oliviaitting on: 1 01/05/2025 12:43 PM EST
--- OUTSIDE RECORDS SUMMARY | 2025-08-16 03:30 | XMS_ITS ---
Author Organization Darryl Peralta MD Address [address] [place], [place] [id number] Care Team Providers Care Media Executive Name Role Phone Darryl Peralta Primary Care Provider [phone] Allergies No Known Allergies REASON FOR VISIT review labs Medications Medication SIG (Take, Route, Frequency, Duration) Notes Start Date End Date Status Melatonin 5 MG 1 tablet at bedtime as needed with food Orally Once a day Active Multivitamin Adult 1 tablet Orally once a day Active ARIPiprazole 5 MG 0.5 tab Orally Once a day Active CeleBREX 200 MG 1 capsule as needed Orally twice a day Active lamoTRIgine 150 MG 1 tablet Orally Once a day for 30 day(s) Active Tylenol Arthritis Pain 650 MG 2 tablets as needed Orally every 8 hrs Not-Taking Imitrex 100 MG 1 tablet Orally as needed Not-Taking ProAir HFA 108 (90 Base) MCG/ACT 2 puffs as needed Inhalation every 4 hrs for 30 days Not-Taking Topiramate 50 MG 1 tablet Orally at bedtime Not-Taking Colace 100 MG 1 capsule as needed Orally Bid Not-Taking Alendronate Sodium 70 MG 1 tablet Orally once a week (friday') Active Calcium + D 500-1000-40 MG-UNT-MCG 1 tablet with food Orally Twice a day Active Social History Tobacco Use: [...] ast year? No Points 0 Interpretation Negative Vital Signs Blood pressure systolic 102 mm Hg 08/16/20 25 Blood pressure diastolic 64 mm Hg 025 Height 66 in 08/16/2025 Weight 162 lbs 08/16/2025 BMI 26.14 kg/m2 08/16/2025 weight is up 2 pounds since 08-12-24 Encounters Encounter Location Date Provider Diagnosis Darryl Peralta MD [address] [place] [phone] 08/16/2025 Darryl Peralta Elevated BUN R79.9 ; Migraine without aura and without status migrainosus, not intractable G43.009 ; Depression screening Z13.31 and Lymphocytosis D72.820 Assessments Encounter Date Diagnosis (ICD Code) Assessment Notes Treatment Notes Treatment Clinical Notes Section Notes 08/16/2025 Elevated BUN (ICD-10 - R79.9) will continue to monitor, future labs pending 08/16/2025 Migraine without aura and without status migrainosus, not intractable (ICD-10 - G43.009) stable, will continue current regiment 08/16/2025 Depression screening (ICD-10 - Z13.31) negative screen 08/16/2025 Lymphocytosis (ICD-10 - D72.820) stable, will continue to monitor Plan Of Treatment Treatment Notes Assessment Notes Elevated BUN will continue to mon itor, future labs pending Migraine without aura and wi thout status migrainosus, not intractable stable, will continue current regiment Depression screening negative screen Lymphocytosis stable, will continu e to monitor Future Test Test Name Order Date Blood Urea Nitrogen 02/13/2026 Creatinine 02/13/2026 Next Appt Details Follow Up: 1 Year, Reason: Provider Name:Darryl bahena, 02/13/2026 07:15:00 AM, [address] [place] [address], [place] [address], [place], [place], [phone], Provider Name:Darryl bahena, 08/11/2026 07:15:00 AM, [address] [place] [address], [place] [address], [place], [place], [phone], Provider Name:Darryl bahena, 08/18/2026 08:00:00 AM, [address] [place] [address], [address], [phone], Progress Notes * Riri CHAPMAN MDOB: [birth year] (75 yo F)Acc No.[id number]:08/16/2025 Patient: Riri BUTLER Provider: Lanre Peralta MD :1950 A ge:75 Y S ex:Female Date:08/16/2025 Address:[address] [place], [place] [phone] Subjective: * Chief Complaints: * R eview labs * HPI: D epression Screening: PHQ-9 L [...] at all, T otal Score 0 . I nterpretation and Intervention D epression Screening Findings N egative, F ollow-Up for Depression : review of PHQ-9 found negative result, no follow-up needed. C ommunication Needs: Communication Needs D oes [...] N one. S ymptom(s): patient is a 75 yo female here for visit woth review of recent labs and follow up of chronic issues. * ROS: G eneral/Constitutional: Change in appetite d enies. C hills d enies. F ever d enies. O phthalmologic: Blurred vision d enies. D ischarge d enies. P ain d enies. E NT: Decreased hearing d enies. S ore throat d enies.?Swollen glands d enies. E ndocrine: Cold intolerance d enies. E xcessive thirst d enies. H eat intolerance d enies. W eight loss d enies. R espiratory: Cough d enies. S hortness of breath at rest d enies. S hortness of breath with exertion d enies. W heezing d enies. C ardiovascular: Chest pain at rest d enies. C hest pain with exertion?denies. I rregular heartbeat d enies. S hortness of breath d enies. ? G astrointestinal: Abdominal pain d enies. C hange in bowel habits d enies. D iarrhea d enies. N ausea d enies. R ectal bleeding d enies. V omiting d enies . G enitourinary: Blood in urine d enies. D ifficulty urinating d enies. F requent urination d enies. U rinary incontinence D enies. M usculoskeletal: Painful joints d enies. W eakness d enies. ? S kin: Dry skin d enies. I tching d enies. D enies?Mole(s), changes in moles, new moles or any lesions of concern. D enies P hotosensitivity. R leonides d enies. N eurologic: Dizziness d enies. F ainting d enies. H eadache?denies. * Medical History: * Surgical History: * [...] per day. Children: yes. Community involvements: yes. Exercise: yes, 4-5 times a week 3 miles weights stretching. Home smoke detector use: yes. Housing: owning. Living with: spouse. Marital status: . Occupation: retired. Pets: 1 cat. * Medications: T akingCeleBREX 200 MG Capsule 1 capsule as needed Orally twice a day ARIPiprazole 5 MG Tablet 0.5 tab Orally Once a day lamoTRIgine 150 MG Tablet 1 tablet Orally Once a day Multivitamin Adult Tablet 1 tablet Orally once a day Melatonin 5 MG Tablet 1 tablet at bedtime as needed with food Orally Once a day Calcium + D 500-1000-40 MG-UNT-MCG Tablet Chewable 1 tablet with food Orally Twice a day Alendronate Sodium 70 MG Tablet 1 tablet Orally once a week () Taking CeleBREX 200 MG Capsule 1 capsule as needed Orally twice a day Taking ARIPiprazole 5 MG Tablet 0.5 tab Orally Once a day Taking lamoTRIgine 150 MG Tablet 1 tablet Orally Once a day Taking Multivitamin Adult Tablet 1 tablet Orally once a day Taking Melatonin 5 MG Tablet 1 tablet at bedtime as needed with food Orally Once a day Taking Calcium + D 500-1000-40 MG-UNT-MCG Tablet Chewable 1 tablet with food Orally Twice a day Taking Alendronate Sodium 70 MG Tablet 1 tablet Orally once a week () Not-Taking/PRNTopiramate 50 MG Tablet 1 tablet Orally at bedtime ProAir HFA 108 (90 Base) MCG/ACT Aerosol Solution 2 puffs as needed Inhalation every 4 hrs Imitrex 100 MG Tablet 1 tablet Orally as needed Tylenol Arthritis Pain 650 MG Tablet Extended Release 2 tablets as needed Orally every 8 hrs Colace 100 MG Capsule 1 capsule as needed Orally Bid Medication List reviewed and reconciled with the patientNot-Taking/PRN Topiramate 50 MG Tablet 1 tablet Orally at bedtime Not-Taking/PRN ProAir HFA 108 (90 Base) MCG/ACT Aerosol Solution 2 puffs as needed Inhalation every 4 hrs Not-Taking/PRN Imitrex 100 MG Tablet 1 tablet Orally as needed Not-Taking/PRN Tylenol Arthritis Pain 650 MG Tablet Extended Release 2 tablets as needed Orally every 8 hrs Not-Taking/PRN Colace 100 MG Capsule 1 capsule as needed Orally Bid Medication List reviewed and reconciled with the patient * Allergies: N .K.D.A.yes[Allergies Verified] Objective: * Vitals: H t: 66, Wt: 162, BMI:26.14, BP:102/64, Wt-k.48. weight is up 2 pounds since 08-12-24. * P ast Orders: L ab:Comprehensive Met. Panel (Order Date - 08/09/2025) (Collection Date & Time - 08/09/2025 07:15 AM) Value Reference Range Sodium 142 135-145 - mmol/L Bilirubin Total 0.5 0.0-1.0 - mg/dL Aspartate Amino Transferase 33 H 5-31 - U/L Alanine Aminotransferase 23 0-31 - U/L Total Protein 7.1 6.5-8.0 - g/dL Albumin Level 4.0 3.5-5.0 - g/dL Alkaline Phosphatase 47 39-117 - U/L Potassium 4.4 3.3-5.1 - mmol/L Chloride 109 H 96-108 - mmol/L Carbon Dioxide 25 22-29 - mmol/L Anion Gap 12 12-20 - Blood Urea Nitrogen 22 H 9-16 - mg/dL Creatinine 1.03 0.5-1.4 - mg/dL Estimated Glomerular Filt Rate 52 - Glucose Random 77 60-115 - mg/dL Calcium 9.6 8.4-10.2 - mg/dL L ab:Complete Blood Count Auto Diff (Order Date - 08/09/2025) (Collection Date & Time - 08/09/2025 07:15 AM) Value Reference Range White Blood Count 5.2 4.8-10.8 - X10*3/uL Red Blood Count 4.03 L 4.20-5.50 - X10*6/uL Hemoglobin 12.0 12.0-16.0 - g/dl Hematocrit 35.7 L 37.0-47.0 - % Mean Corpuscular Volume 88.6 80.0-98.0 - fL Mean Corpuscular Hemoglobin 29.8 27.0-33.0 - pg Mean Corpuscular HGB Conc 33.6 31.0-35.0 - g/ dl Red Cell Distribution Width 13.3 11.0-16.0 - % Platelet Count 232 160-400 - X10*3/uL Mean Platelet Volume 9.3 L 9.4-12.3 - fL Neutrophils Percent Auto 45.7 45-73 - % Imm Gran Pct Auto 0.2 0.0-0.4 - % Lymphocytes Percent Auto 43.5 H 20-40 - % Monocytes Percent Auto 7.9 2-11 - % Eosinophils Percent Auto 1.9 0-4 - % Basophils Percent Auto 0.8 0-2 - % NRBC Pct Auto 0.0 0.0-0.2 - /100WBC Neutrophils Absolute Auto 2.4 2.0-8.3 - x10* 3/uL Imm Gran Abs Auto 0.01 0.00-0.03 - X10*3/uL Lymphocytes Absolute Auto 2.3 1.2-4.9 - X10* 3/uL Monocytes Absolute Auto 0.4 0.1-1.2 - X10*3/ uL Eosinophils Absolute Auto 0.1 0.0-0.4 - X10* 3/uL Basophils Absolute Auto 0.0 0.0-0.2 - X10*3/ uL NRBC Abs Auto 0.000 0.0-0.012 - X10*3/uL L ab:Lipid Panel (Order Date - 08/09/2025) (Collection Date & Time - 08/09/2025 07:15 AM) Value Reference Range Triglycerides 61 <150 - mg/dL Cholesterol 180 <200 - mg/dL LDL Cholesterol Calculated 120 H <100 - mg/dL HDL Cholesterol 48 >40 - mg/dL L ab:UA ClnCatch+Micro w/rflx Cult (Order Date - 08/09/2025) (Collection Date & Time - 08/09/2025 07:15 AM) Value Reference Range Color Urine Yellow - Appearance Urine Clear - PH 5.5 5.0-9.0 - Glucose Urine UA Negative Negative - mg/dL Urine Blood Negative Negative - Specific [place] - Urine 1.010 1.005-1.025 - Urine Protein [...] * Examination: G eneral Examination: GENERAL APPEARANCE: w ell developed, well nourished, in no acute distress. HEAD: n ormocephalic, atraumatic. EYES: p upils equal, round, reactive to light and accommodation, sclera non-icteric. EARS: n ormal. ORAL CAVITY: m ucosa moist. THROAT: c lear. NECK/THYROID: n bella supple, full range of motion, no cervical lymphadenopathy, no bruits. SKIN: w arm and dry, no suspicious lesions. HEART: r egular rate and rhythm, S1, S2 normal, no murmurs.? LUNGS: c lear to auscultation bilaterally. BREASTS: d eclined. ABDOMEN: s oft, nontender, nondistended, bowel sounds present, normal, no organomegaly , no masses palpable. RECTAL EXAM: d eclined. FEMALE GENITOURINARY: d eclined. EXTREMITIES: n o clubbing, cyanosis, or edema. NEUROLOGIC: n onfocal, motor strength normal upper and lower extremities, sensory exam intact. Assessment: * Assessment: 1. E levated BUN - R79.9 (Primary) 2 . M igraine without aura and without status migrainosus, not intractable - G43.009 3 . D epression screening - Z13.31? 4. L ymphocytosis - D72.820 Plan: * Treatment: 2. M igraine without aura and without status migrainosus, not intractable Notes: stable, will continue current regiment 3. D epression screening Notes: negative screen 4. L ymphocytosis Notes: stable, will continue to monitor * Procedure Codes: * Preventive Medicine: Counseling: C are goal follow-up plan: C ounseling for abnormal BMI provided?Yes, A akash Normal BMI Follow-up G iving encouragement to exercise. * Follow Up: 1 Year * * Sign off status: Completed true * Provider: Lanre Peralta MD Date: 0 08/16/2025 Generated for Caesar godoy/Isabel/Sararansmitting on: 1 01/05/2025 12:43 PM EST History and Physical Notes * HPI (History of Present Illness) Category Sub-Category Detail Notes Category Not es Symptom(s) patient is a 75 yo female here for visit woth review of recent labs and follow up of chronic issues Depression Screening PHQ-9 Little inte rest or [...] way: Not at all Total Score: 0 Interpretation and Intervention Depression Alecia chatman Findings: Negative Follow-Up for Depression: : review of PH Q-9 found negative result, no follow-up needed SDOH Questions SDOH Questions In the past [...] Category Not es General Examination GENERAL APPEARANCE: well dev eloped, well nourished, in no acute distress HEAD: normocephalic, atrau matic EYES: pupils equal, round, reactive to light and accommodation, sclera non-icteric EARS: normal THROAT: clear NECK/THYROID: neck supple, full ra nge of motion, no cervical lymphadenopathy, no bruits HEART: regular rate and rhy thm, S1, S2 normal, no murmurs LUNGS: clear to auscultatio n bilaterally ABDOMEN: soft, nontender, non distended, bowel sounds present, normal, no organomegaly , no masses palpable NEUROLOGIC: nonfocal, motor stre ngth normal upper and lower extremities, sensory exam intact SKIN: warm and dry, no nae picious lesions EXTREMITIES: no clubbing, cyanosi s, or edema BREASTS: declined RECTAL EXAM: declined FEMALE GENITOURINARY: declined ORAL CAVITY: mucosa moist
--- OUTSIDE RECORDS SUMMARY | 2025-08-25 06:33 | XMS_ITS ---
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 Role Phone Darryl Peralta Primary Care Provider REASON FOR VISIT ER Encounters Encounter Location Date Provider Diagnosis Darryl Peralta MD [address] [place] [address] [place] [phone] 08/25/2025 Darryl Peralta Plan Of Treatment Next Appt Details Provider Name:Darryl Starks iedavid, 02/13/2026 07:15:00 AM, [address] [place] [address], [address] [place] [address], [id number], Provider Name:Darryl bahena, 08/11/2026 07:15:00 AM, [address] [place] [address], [address] [place] [address], [phone], Provider Name:Darryl bahena, 08/18/2026 08:00:00 AM, [address] [place] [address], [address] [place] [address], [phone], Progress Notes * Riri CHAPMAN MDOB: [birth year] (75 yo F)Acc No.[id number]:08/25/2025 Patient: Riri BUTLER :1950 A ge:75 Y S ex:Female Address:[address] [place] [address] [place] [address] * true * Date: Generated for Printi ng/Faxing/eTransmitting on: 01/05/2025 12:42 PM EST
--- NOTE | ~2025-11-04 | MM_ITS ---
EXAMINATION: DXA BONE DENSITY AXIAL HISTORY: M81.0 - Age-related osteoporosis without current pathological fracture TECHNIQUE: [employer] Dual energy absorptiometry (DEXA) of the lumbar spine, total left hip, and femoral neck was performed. COMPARISON: Comparison is made with the prior examination dated 08/29/2023. FINDINGS: The bone mineral density of the lumbar spine is 1.021 g/cm2, corresponding to a T-score of -1.2, and a Z-score of 0.3. This is indicative of osteopenia. This represents a BMD change of 5.5% compared to the prior exam. This is not statistically significant. The bone mineral density of the left total hip is 0.969 g/cm2, corresponding to a T-score of -0.3, and a Z-score of 1.3. This is indicative of normal bone mineral density. This represents a BMD change of 19.6% compared to the prior exam. This is statistically significant. The bone mineral density of the left femoral neck is 0.973 g/cm2, corresponding to a T-score of -0.5, and a Z-score of 1.3. This is indicative of normal bone mineral density. This represents a BMD change of 26.5% compared to the prior exam. FRACTURE RISK: The FRAX index suggests a ten year probability of major osteoporotic fracture of 14.0%, and of hip fracture 2.0%. MM/XR DEXA axial skeleton IMPRESSION: Based on bone mineral density, and according to World Health Organization (WHO) criteria, the diagnosis is consistent with osteopenia. Statistically, 68% of repeat scans fall within 1 SD (+/- 0.010 g/cm2 for AP spine L1-L4) and 1 SD (+/- 0.012 g/cm2 for femur total) FRAX is a trademark of the [employer] [place] for Metabolic Bone Disease, a World Health Organization (WHO) Collaborating Center. Electronically signed by: Jonnathan Garcia MD 11/04/2025 11:43 AM [facility]
--- OUTSIDE RECORDS SUMMARY | 2025-11-04 12:43 | XMS_ITS | Patient Health Record ---
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 Role Phone Kathryn DARNELL, Darryl Primary Care Provider Vandana Avelar Unavailable [phone] Allergies No Known Allergies Reason For Referral [...] W/U Status Risk Notes Problem Plantar wart ([id number]) Plantar wart (B07.0) Active confirmed Vital Signs Blood pressure diastolic 60 mm Hg 04/12/2025 Height 5ft5in in 04/12/2025 Blood pressure systolic 110 mm Hg 04/12/2025 Weight 160 lbs 04/12/2025 BMI 26.62 kg/m2 04/12/2025 Encounters Encounter Location Date Provider Diagnosis [facility] [address] 04/12/2025 Vandana Walter Onychomycosis B35.1 ; Right foot pain M79.671 and Plantar [facility] B07.0 [facility] [address] 11/22/2024 [facility] [address] 01/13/2025 Vandana Walter [facility] [address] 05/30/2025 Vandana Walter [address] [address] 07/21/2025 Vandana Walter Assessments Encounter Date Diagnosis (ICD Code) Assessment Notes Treatment Notes Treatment Clinical Notes Section Notes 04/12/2025 Right foot pain (ICD-10 - M79.671) 04/12/2025 Onychomycosis (ICD-10 - B35.1) 04/12/2025 Plantar wart (ICD-10 - B07.0) Plan Of Treatment No Information Insurance Providers Payer Name Payer Address Payer Phone Subscriber Number Group Number Insured Name Patient Relationship to Insured Coverage Start Date Coverage End Date Medicare [employer] [address] [facility] [place] [address] [id number] Olivia Daniels Self - patient is the insured [address] [place] [address] [address] [place] [address] [phone] [id number] Olivia Daniels Self - patient is the insured Medical (General) History Medical History History ICD Code Arthritis asthma Cataracts Depression Headaches/Migraines Mumps Chicken pox Measles Surgical History Surgery Date(Month/Year) appendectomy 1950 tonsillectomy 1955
--- OUTSIDE RECORDS SUMMARY | 2025-11-04 12:43 | XMS_ITS | Patient Health Record ---
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 Name Role Phone Darryl Peralta Primary Care Provider [phone] Allergies No Known Allergies Results Component Value Reference Range Notes Complete Blood Count Auto Di ff Reviewed date:08/09/2025 12:25:35 PM Interpretation: Performing Lab:[facility], [address] [place] [phone] Notes/Report: White Blood Count 5.2 4.8-10.8 X10*3/uL [...] 0.0-0.2 /100WBC Neutrophils Absolute Auto 2.4 2.0-8.3 x10*3/uL Imm Gran Abs Auto 0.01 0.00-0.03 X10*3/uL Lymphocytes Absolute Auto 2.3 1.2-4.9 X10*3/uL Monocytes Absolute Auto 0.4 0.1-1.2 X10*3/uL Eosinophils Absolute Auto 0.1 0.0-0.4 X10*3/uL Basophils Absolute Auto 0.0 0.0-0.2 X10*3/uL NRBC Abs Auto 0.000 0.0-0.012 X10*3/uL Lipid Panel Reviewed date:08/09/2025 12:29:27 PM Interpretation: Performing Lab:[facility], [address] [place] [phone] Notes/Report: Triglycerides 61 <150 mg/dL Desirable Triglyceride: [...] t Reviewed date:08/09/2025 06:22:56 PM Interpretation: Performing Lab:[facility], [address] [place] [phone] Notes/Report: Urine, Clean Catch Color Urine Yellow Appearance Urine Clear PH 5.5 5.0-9.0 Glucose Urine UA Negative Negative mg/dL Urine Blood Negative Negative Specific [place] - Urine 1.010 1.005-1.025 Urine Protein Negative Neg-Trace mg/dL Urine Ketones Negative Negative mg/dL Nitrite Urine Negative Negative Leukocyte Esterase Urine Negative Negative RBC Urine 0-2 0-2 /HPF WBC Urine 0-5 0-5 /HPF Squamous Epithelial Cell Urine 0-2 0-2 /HPF Bacteria Urine None Seen None Seen Hyaline Casts Urine 0-2 0-2 /LPF Comprehensive Met. Panel Reviewed date:08/09/2025 12:45:47 PM Interpretation: Performing Lab:[facility], [address] [place] [phone] Notes/Report: Sodium 142 135-145 mmol/L Potassium 4.4 [...] U/L Complete Blood Count Auto Di ff Reviewed date:08/24/2025 04:19:57 PM Interpretation: Performing Lab:[facility], [address] [place] [phone] Notes/Report: White Blood Count 5.2 4.8-10.8 X10*3/uL [...] 0.0-0.2 /100WBC Neutrophils Absolute Auto 2.8 2.0-8.3 x10*3/uL Imm Gran Abs Auto 0.01 0.00-0.03 X10*3/uL Lymphocytes Absolute Auto 2.0 1.2-4.9 X10*3/uL Monocytes Absolute Auto 0.4 0.1-1.2 X10*3/uL Eosinophils Absolute Auto 0.1 0.0-0.4 X10*3/uL Basophils Absolute Auto 0.0 0.0-0.2 X10*3/uL NRBC Abs Auto 0.000 0.0-0.012 X10*3/uL Comprehensive Met. Panel Reviewed date:08/24/2025 04:19:32 PM Interpretation: Performing Lab:[facility], [address] [place] [phone] Notes/Report: Sodium 142 135-145 mmol/L Potassium 4.5 [...] Phosphatase 50 39-117 U/L Creatine Kinase Total Reviewed date:08/24/2025 07:39:50 AM Interpretation: Performing Lab:[facility], [address] [place] [phone] Notes/Report: Creatine Kinase Total 43 26-140 U/L COVID-19 ID NOW (Zhao) Reviewed date:08/24/2025 07:37:33 AM Interpretation: Performing Lab:[facility], [address] [place] [phone] Notes/Report: IDNOW Serial# [id number] COVID-19 Test Negative Negative COVID-19 Note See [...] with other viruses. Testing facilities within the [facility] and its territories are required to report [...] Influenza A B2 ID NOW (Abbot t) Reviewed date:08/24/2025 07:37:21 AM Interpretation: Performing Lab:[facility], [address] [place] [phone] Notes/Report: IDNOW Serial# [id number] Influenza A Negative Negative Influenza B2 Negative [...] specimen and co-infection with Respiratory Syncytial Virus. XR DEXA axial skeleton Reviewed date:11/04/2025 12:00:17 PM Interpretation: Performing Lab: Notes/Report: [facility] [place] [address] Mammography Report Signed Patient: Riri Daniels MR#: [id number] : 1950 Acct:[id number] Age/Sex: 75 / F ADM Date: 11/04/25 Loc: [facility] Attending Dr: Kerry Londono MD Ordering Physician: Kerry Londono MD Results: Date of Service: 11/04/25 Follow Up: Procedure(s): XR DEXA axial skeleton Accession Number(s): [id number] cc: Kerry Londono MD; Darryl Peralta MD Reason For Exam: M81.0 - Age-related osteoporosis without current pathological fracture EXAMINATION: DXA BONE DENSITY AXIAL HISTORY: M81.0 - Age-related osteoporosis without current pathological fracture TECHNIQUE: [employer] Dual energy absorptiometry (DEXA) of the lumbar spine, total left hip, and femoral neck was performed. COMPARISON: Comparison is made with the prior examination dated 08/29/2023. FINDINGS: The bone mineral density of the lumbar spine is 1.021 g/cm2, corresponding to a T-score of -1.2, and a Z-score of 0.3. This is indicative of osteopenia. This represents a BMD change of 5.5% compared to the prior exam. This is not statistically significant. The bone mineral density of the left total hip is 0.969 g/cm2, corresponding to a T-score of -0.3, and a Z-score of 1.3. This is indicative of normal bone mineral density. This represents a BMD change of 19.6% compared to the prior exam. This is statistically significant. The bone mineral density of the left femoral neck is 0.973 g/cm2, corresponding to a T-score of -0.5, and a Z-score of 1.3. This is indicative of normal bone mineral density. This represents a BMD change of 26.5% compared to the prior exam. FRACTURE RISK: The FRAX index suggests a ten year probability of major osteoporotic fracture of 14.0%, and of hip fracture 2.0%. MM/XR DEXA axial skeleton IMPRESSION: Based on bone mineral density, and according to World Health Organization (WHO) criteria, the diagnosis is consistent with osteopenia. Statistically, 68% of repeat scans fall within 1 SD (+/- 0.010 g/cm2 for AP spine L1-L4) and 1 SD (+/- 0.012 g/cm2 for femur total) FRAX is a trademark of the [employer]'s [place] for Metabolic Bone Disease, a World Health Organization (WHO) Collaborating Center. Electronically signed by: Jonnathan Garcia MD 11/04/2025 11:43 AM EST Dictated By: Jonnathan Garcia MD Signed By: <Electronically signed by Jonnathan Garcia MD in OV> 11/04/25 1143 DD/ 1100 TD/TT: 11/04/25 1130 Integrity Assessor: [place] [facility] [address] [place], [place] [id number] Mammography Report Signed Patient: Riri Daniels MR#: [id number] : 1950 Acct:[id number] Age/Sex: 75 / F ADM Date: 11/04/25 Loc: B[facility] Attending Dr: Yaakov Londono MD Ordering Physician: Kerry Londono MD Results: Date of Service: 11/04/25 Follow Up: Procedure(s): XR DEX A axial skeleton Accession Number(s): [id number] cc: Kerry Londono MD ; Darryl Peralta MD Reason For Exam: M81 .0 - Age-related osteoporosis without current pathological fracture EXAMINATION: DXA BON E DENSITY AXIAL HISTORY: M81.0 - Age-related osteoporosis without current pathological fracture TECHNIQUE: [employer] Dual energy absorptiometry (DEXA) of the lumbar spine, total left hip, and femoral neck was performed. COMPARISON: Comparis on is made with the prior examination dated 08/29/2023. FINDINGS: The bone mineral density of the lumbar spine is 1.021 g/cm2, corresponding to a T-score of -1.2, and a Z-score of 0.3. This is indicative of osteopenia. This represents a BM D change of 5.5% compared to the prior exam. This is not statistically significant. The bone mineral density of the left total hip is 0.969 g/cm2, corresponding to a T-score of -0.3, and a Z-score of 1.3. This is indicative of normal bone mineral density. This represents a BM D change of 19.6% compared to the prior exam. This is statistically significant. The bone mineral density of the left femoral neck is 0.973 g/cm2, corresponding to a T-score of -0.5, and a Z-score of 1.3. This is indicative of normal bone mineral density. This represents a BM D change of 26.5% compared to the prior exam. FRACTURE RISK: The FRAX index suggests a ten year probability of major osteoporotic fracture of 14.0%, a nd of hip fracture 2.0%. __ MM/XR DEXA axial skeleton IMPRESSION: Based on bone minera l density, and according to World Health Organization (WHO) criteria, the diagnosis is consistent with osteopenia. Statistically, 68% o f repeat scans fall within 1 SD (+/- 0.010 g/cm2 for AP spine L1-L4) and 1 SD (+/- 0.012 g/cm2 for femur total) FRAX is a trademark of the [employer] [place] for Metabolic Bone Disease, a World Health Organization (WHO) Collaborating Center. Electronically dianna d by: Jonnathan Garcia MD 11/04/2025 11:43 AM [facility] Dictated By: Jonnathan Garcia MD Signed By: <Electronically signed by Jonnathan Garcia MD in OV> 11/04/25 1143 DD/ 1100 TD/TT: 11/04/25 1130 Integrity Assessor: Reason For Referral No Information Medications Medication [...] Vaccine Unknown 08/16/2013 [facility] Fluarix Quadrivalent Unknown 08/08/2014 Administered [facility] work Prevnar 13 IM Intramuscular 08/09/2014 [...] Problem Status W/U Status Risk Notes Problem 30070330 Lymphocytosis (D72.820) Active confirmed Problem 780986632 Mild intermitten t asthma without complication (J45.20) Active confirmed Problem 343934640 Migraine without aura and without status migrainosus, not intractable (G43.009) Active confirmed Problem 105869754 Neutropenia, unspecified type (D70.9) Active confirmed Problem 275965472 Osteopenia of spine (M85.88) Active confirmed Problem 41102342 PMR (polymyalgia rheumatica) (M35.3) Active confirmed Problem 378987263 Moderate persistent asthma with exacerbation (J45.41) Active [...] Date Provider Diagnosis Darryl Peralta MD [address] [place], [place] [phone] 08/09/2025 Darryl Peralta Lymphocytosis D72.82 0 and Encounter for administration of vaccine Z23 Darryl Peralta MD [address] [place], [place] [id number] 08/16/2025 Darryl Peralta Elevated BUN R79.9 ; Migraine without aura and without status migrainosus, not intractable G43.009 ; Depression screening Z13.31 and Lymphocytosis D72.820 Darryl Peralta MD [address] [place] [phone] 08/25/2025 Darryl Peralta Assessments Encounter Date Diagnosis (ICD Code) Assessment [...] Electrocardiogram (EKG) 07/03/2017 Electrocardiogram (EKG) 07/16/2018 Comprehensive [place]. Panel Fast 5 MM screening mammo BI 08/06/2021 Future Test Test Name Order Date BONE DENSITY DEXA 07/04/2021 Next Appt Details Provider Name:Darryl bahena, 02/13/2026 07:15:00 AM, [address] [place] [address], [address], [phone], Provider Name:Darryl bahena, 08/11/2026 07:15:00 AM, [address] [place] [address], [address], [phone], Provider Name:Darryl bahena, 08/18/2026 08:00:00 AM, [address] [place] [address], [phone], Insurance Providers Payer Name Payer Address Payer Phone Subscriber Number Group Number Insured Name Patient Relationship to Insured Coverage Start Date Coverage End Date [employer] [address] [place] [address] [id number] Daniels, Riri Self - patient is the insured [employer] [address] [place], [place] [phone] [id number] Riri Daniels Self - patient is the insured Citizen Ins [address] [address] [phone] [id number] Riri Daniels Self - patient is the insured Medical (General) History Medical History History ICD Code 09/07/2013 Colonoscopy - repeat 10 years 05/17/2015 bone density - repeat 2 yrs don e 2019 repeat 2 yrs History of tinnitus cologard 2022 negative
--- OUTSIDE RECORDS SUMMARY | 2025-11-04 12:43 | XMS_ITS | Patient Health Record ---
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 Name Role Phone Darryl Peralta MD Primary Care Provider Liu Vail Jr Sha Unavailable Reason For Referral No Information Medications Medication SIG (Take, Route, Frequency, Duration) Notes Start Date End Date Status Meloxicam 50 mg Acti ve Metamucil 30.9 % Powder as directed Orally 013 Active Gabapentin 300 mg Ac tive lamoTRIgine 150 mg A ctive Imitrex 50-100 mg Ac tive Abilify 2.5 mg Activ e Multivitamins Active Melatonin 5mg Active Calcium + D Active Colace 1 cap twice a day Activ e traMADol HCl 50 mg A ctive MoviPrep 100 GM Solution Reconstituted as directed before colonoscopy Orally; Duration: 1 dose 08/04/2013 Active Social History Social History Additional Details Category Social Info Options Details Miscellaneous: Marital status: Occupation: works part-time Problems Problem Type SNOMED Code ICD Code Onset Dates Problem Status W/U Status Risk Notes Problem Constipation (49749587) Constipation (564.00) Active confirmed Problem Colon cancer screening (737376384) Colon cancer screening (V76.51) Active confirmed Plan Of Treatment Future Test Test Name Order Date COLONOSCOPY 08/04/2013 Insurance Providers Payer Name Payer Address Payer Phone Subscriber Number Group Number Insured Name Patient Relationship to Insured Coverage Start Date Coverage End Date [facility] [address] [place], [place] [id number] SHELIA CHAPMAN Self - patient is the insured Medical (General) History Medical History History ICD Code Denies VT,DM,CVA,Lung disease,renal dise ase Surgical History Surgery Date(Month/Year) tonsillectomy 1955 appendectomy 1950 dilatation and curettage 1969'
--- OUTSIDE RECORDS SUMMARY | 2025-11-04 12:43 | XMS_ITS | Clinical Summary ---
Author Organization [facility] Address [address] [place] [phone] Phone Care Team Providers Care Folder Tier Name Role Phone Darryl Peralta MD Primary [...] file Insurance MEDICARE PART A & B [facility] MEDICARE PART A & B [facility] MEDICARE PART A & B MEDICARE PART A & B MEDICARE PART A & B MEDICARE PART A & B MEDICARE PART A & B MEDICARE PART A & B [employer] [facility] MEDICARE PART A & B [facility] [employer] Care Teams Folder Tier Relationship Specialty Start Date End Date Darryl Peralta MD [address] [place] [address] [place] [address] PCP - General 11/20/17 Additional Source Comments The information contained in this document represents components of the legal health record. It is not the complete legal health record.[facility]
== END 2025-11-04 10:53 | disposition home or self-care (01) ==
LOC: HO.MAMMO 10:52
PROVIDERS: PCP Internal Medicine; Visit Provider Student in an Organized Health Care Education/Training Program
DX: M81.0 Age-related osteoporosis without current pathological fracture (principal)
CPT/HCPCS: 77080

== ENCOUNTER → 2025-11-04 11:00 | Outpatient (BNV) | payer MEDICARE, BC, SELFPAY | PROVIDERS: PCP Internal Medicine; Visit Provider Radiology Diagnostic Radiology | DX: E28.39 Other primary ovarian failure (principal) | CPT/HCPCS: 77080 ==